=== PATIENT | male | born 1940 | race Caucasian/White ===

== ENCOUNTER 2016-11-05 00:11 | Emergency (ER) | payer MEDICARE ==
[2016-11-05 00:38] VITALS: BP 125/87
--- NOTE | 2016-11-05 01:59 | ED ---
Skin Complaint - HPI Summary HPI Summary: Patient presents with small avulsion to the skin over the right forearm from this afternoon. He bumped the area recently and the area started to bleed again. He is concerned that the wound would not stop bleeding and came to ed for evaluation. Patient is on daily aspirin. He denies other complaints and denies pain. - History of Current Complaint Chief Complaint: EDLacSutureRecheck Time Seen by Provider: 11/05/16 01:53 Stated Complaint: RT ARM LAC Hx Obtained From: Patient Onset/Duration: Started Hours Ago Skin Exposure Onset/Duration: Hours Ago Timing: Constant Onset Severity: Mild Current Severity: Mild Pain Intensity: 0 Pain Scale Used: 0-10 Numeric Skin Location: Arm Alleviating Symptom(s): Nothing Associated Signs & Symptoms: Negative Related History: Trauma - Allergy/Home Medications Allergies/Adverse Reactions: Allergies Allergy/AdvReac Type Severity Reaction Status Date / Time Bacitracin [From Neosporin] Allergy Rash Verified 11/21/15 11:51 Neomycin [From Neosporin] Allergy Rash Verified 11/21/15 11:51 Polymyxin B [From Neosporin] Allergy Rash Verified 11/21/15 11:51 Levofloxacin [From Levaquin] AdvReac Mild GI Upset Verified 11/21/15 11:51 Ibuprofen AdvReac excessive Verified 11/21/15 11:51 thirst yellow jackets Allergy Severe anaphylacti Uncoded 11/21/15 11:51 c PMH/Surg Hx/FS Hx/Imm Hx Previously Healthy: Yes Endocrine/Hematology History: Denies: Hx Systemic Lupus Erythematosus Comment Only: Hx Diabetes - MARKERS ELEVATED PER PATIENT Cardiovascular History: Reports: Hx Aneurysm - repaired triple A, Hx Hypercholesterolemia, Hx Hypertension - ON DAILY MEDS, Other Cardiovascular Problems/Disorders - hX OF AAA REPAIR, POPITEAL ARTERY REPAIR DR CHA Denies: Hx Congestive Heart Failure Respiratory History: Reports: Hx Asthma - ?, Hx Chronic Obstructive Pulmonary Disease (COPD), Hx Sleep Apnea, Other Respiratory Problems/Disorders - USES OXYGEN AT 4 L WITH CPAP AT NIGHT GI History: Reports: Hx Gastroesophageal Reflux Disease - AFFECTS VOCAL CORDS, Other GI Disorders - hx AAA History: Reports: Hx Benign Prostatic Hyperplasia, Hx Renal Disease - abnormal gfr, Other Problems/Disorders - enlarged prostate Denies: Hx Dialysis Musculoskeletal History: Reports: Hx Tendonitis - LEFT SHOULDER AND ARM Denies: Hx Rheumatoid Arthritis Sensory History: Reports: Hx Cataracts - BILATERAL, Hx Contacts or Glasses - GLASSES Denies: Hx Hearing Aid Opthamlomology History: Reports: Hx Cataracts - BILATERAL, Hx Contacts or Glasses - GLASSES Neurological History: Reports: Hx Headaches, Hx Migraine - HX OF MIGRAINES IN THE PAST (NONE SINCE USING CPAP Psychiatric History: Reports: Hx Depression - HX OF - Cancer History Hx Chemotherapy: No - Surgical History Surgery Procedure, Year, and Place: 2004 aaa. hernia repair- WITH MESH. 1987 polyps larynx benign. 2007 RIGHT TOTAL KNEE REPLACEMENT [facility] [place]. 2005 & 2013- bilat EYE CATARACT [facility] [place]. 2013 POPITEAL ARTERY AN. REPAIR [facility]. Hx Anesthesia Reactions: No Infectious Disease History: Denies: Traveled Outside the [place] in Last 30 Days - Social History Occupation: Retired Lives: With Family Alcohol Use: None Hx Substance Use: No Substance Use Type: Reports: None Smoking Status (MU): Former Smoker Type: Cigarettes Amount Used/How Often: 2 PPD X 20 YEARS Have You Smoked in the Last Year: No Review of Systems Constitutional: Negative Eyes: Negative Cardiovascular: Negative Respiratory: Negative Positive: no symptoms reported, see HPI Musculoskeletal: Negative Positive: Other - 1cm avulsion of skin to the right forearm Neurological: Negative Psychological: Normal All Other Systems Reviewed And Are Negative: Yes Physical Exam Triage Information Reviewed: Yes Vital Signs On Initial Exam: Initial Vitals Pulse Resp BP Pulse Ox 70 18 125/87 91 11/05/16 00:33 11/05/16 00:33 11/05/16 00:33 11/05/16 00:33 Vital Signs Reviewed: Yes Appearance: Positive: Well-Appearing, Well-Nourished Skin: Positive: Warm, Skin Color Reflects Adequate Perfusion, Other - 1cm avulsion to the right forearm Eyes: Positive: Normal, EOMI, MELINA Neck: Positive: Nontender, No Lymphadenopathy Respiratory/Lung Sounds: Positive: Clear to Auscultation, Breath Sounds Present Cardiovascular: Positive: Normal, RRR, Pulses are Symmetrical in both Upper and Lower Extremities Musculoskeletal: Positive: Normal, Strength/ROM Intact Neurological: Positive: Sensory/Motor Intact, Alert, Oriented to Person Place, Time, Speech Normal Psychiatric: Positive: Normal Diagnostics - Vital Signs Vital Signs Pulse Resp BP Pulse Ox 11/05/16 00:33 70 18 125/87 91 - Laboratory Lab Statement: Any lab studies that have been ordered have been reviewed, and results considered in the medical decision making process. Course/Dx - Course Course Of Treatment: Patient presents to ED with 1cm avulsion to the right forearm with concern for bleeding. Bleeding is well controlled. Compression dressing applied over gauze. Return precautions given. - Differential Diagnoses - Skin Complaint Differential Diagnoses: Other - avulsion, laceration, skin tear - Diagnoses Provider Diagnoses: Skin tear Discharge - Discharge Plan Condition: Stable Disposition: HOME Patient Education Materials: Blood Thinners (ED) Referrals: Germain Granda MD [Primary Care Provider] - Additional Instructions: Return to ED if wound is bleeding through the bandage
== END 2016-11-05 01:55 | disposition home or self-care (01) ==
LOC: ED 00:11
DX: S51.811A Laceration without foreign body of right forearm, initial encounter (principal); X58.XXXA Exposure to other specified factors, initial encounter; Y93.9 Activity, unspecified; Y92.9 Unspecified place or not applicable; Z87.891 Personal history of nicotine dependence
CPT/HCPCS: 99281

== ENCOUNTER 2018-10-13 16:13 | Observation (INO) | payer MEDICARE ==
[2018-10-13 16:43] LABS: ABS Basophils 0.1 10^3/ul (0-0.2); ABS Eosinophils 0.5 10^3/ul (0-0.6); ABS Monocytes 0.8 10^3/ul (0-0.8); ABS Neutrophils 7.8 10^3/ul (1.5-7.7); Eosinophil % 4.7 %; Hematocrit 45 % (42-52); Lymphocyte % 10.2 %; Mean Corpuscular HGB Conc 33 g/dL (31-36); Mean Corpuscular Hemoglobin 29 pg (27-31); Mean Corpuscular Volume 87 fL (80-94); Mean Platelet Volume 8.2 fL (7.4-10.4); Nucleated Red Blood Cells % 0.1; Platelet Count 198 10^3/uL (150-450); Red Blood Count 5.18 10^6 /uL (4.18-5.48); Red Cell Distribution Width 16 % (10-15); White Blood Count 10.3 10^3/uL (3.5-10.8)
--- NOTE | 2018-10-13 16:43 | ED ---
HPI Chest Pain - HPI Summary HPI Summary: Patient is a 78 y/o M w/ PMHx of AAA s/p repair x 2, most recent 09/16/[address] Patel, presents to [facility] with complaints of sudden onset of sharp pain in throat, just above his chest yesterday. He states that the Sx began as he was walking out of his counselor's office yesterday. Patient notes that Sx worsened with inspiration. Pain continued throughout yesterday and was present when he went to sleep last night. This morning, patient continued to have pain, now at his sternal notch. and lower anterior neck. Pain is described as a strong, dull ache. He took Gas-X with minimal relief. Patient later took a nap for 3-4 hours, when he awoke, pain was still present. He had called Dr. Charles's office this morning, nurse called back later in the day and advised him to come to [facility]. Fever and dizziness are denied but he notes some MARTEL, SOB, cough, and chronic LLE edema. Patient denies back pain, abdominal pain and states that his Sx do not feel like heartburn. Medications include omeprazole, ranitidine, metformin. PMHx of AAA that was repaired by Dr. Patel at [facility] on 09/16/18. On triage, pain is rated 1/10, nothing is noted to aggravate/alleviate Sx. Home medications and allergies are reviewed. - History of Current Complaint Chief Complaint: EDChestPainROMI Time Seen by Provider: 10/13/18 16:22 Hx Obtained From: Patient Onset/Duration: Started Days Ago - yesterday, Still Present Timing: Constant, Lasting Days - yesterday Initial Severity: Mild Current Severity: Mild Pain Intensity: 1 Pain Scale Used: 0-10 Numeric Chest Pain Location: Mid Sternal - today, Upper Sternal - yesterday Chest Pain Radiates: No Character: Dull/Aching Aggravating Factor(s): Deep Breaths Alleviating Factor(s): Nothing Associated Signs and Symptoms: Positive: Chest Pain, Headaches, Shortness of Breath, Swelling - LLE, Cough, Other: - chest pain, pain in throat. Negative: Dizziness, Fever, Back Pain, Abdominal Pain - Allergy/Home Medications Allergies/Adverse Reactions: Allergies Allergy/AdvReac Type Severity Reaction Status Date / Time bacitracin Allergy Rash Verified 06/29/18 15:28 [From Neosporin ([id number])] ibuprofen Allergy excessive Verified 06/29/18 15:28 thirst levofloxacin [From Levaquin] Allergy tendonitis Verified 06/29/18 15:28 neomycin Allergy Rash Verified 06/29/18 15:28 [From Neosporin ([id number])] polymyxin B Allergy Rash Verified 06/29/18 15:28 [From Neosporin ([id number])] yellow jacket Allergy Severe Anaphylatic Uncoded 06/29/18 15:28 Shock PMH/Surg Hx/FS Hx/Imm Hx Previously Healthy: No Endocrine/Hematology History: Reports: Hx Diabetes - TYPE 2 Denies: Hx Systemic Lupus Erythematosus Cardiovascular History: Reports: Hx Aneurysm - repaired AAA, repaired x 2 , Hx Hypercholesterolemia, Hx Hypertension - ON DAILY MEDS Denies: Hx Congestive Heart Failure, Hx Pacemaker/ICD Respiratory History: Reports: Hx Chronic Obstructive Pulmonary Disease (COPD), Hx Sleep Apnea, Other Respiratory Problems/Disorders - USES OXYGEN AT 4 L WITH CPAP AT NIGHT GI History: Reports: Hx Gastroesophageal Reflux Disease - AFFECTS VOCAL CORDS History: Reports: Hx Benign Prostatic Hyperplasia Denies: Hx Dialysis, Hx Renal Disease Musculoskeletal History: Reports: Hx Tendonitis - LEFT SHOULDER AND ARM Denies: Hx Rheumatoid Arthritis Sensory History: Reports: Hx Cataracts - BILATERAL, Hx Contacts or Glasses - GLASSES Denies: Hx Hearing Aid Opthamlomology History: Reports: Hx Cataracts - BILATERAL, Hx Contacts or Glasses - GLASSES Neurological History: Reports: Hx Headaches Psychiatric History: Reports: Hx Depression Denies: Hx Panic Disorder - Cancer History Hx Chemotherapy: No - Surgical History Surgery Procedure, Year, and Place: 2004 aaa. hernia repair- WITH MESH. 1987 polyps larynx benign. 2008 RIGHT [place] [facility] [place] 2006 & 2014- bil[place] CAT[place] [facility] [place] 2019 AAA repair, Dr. Patel, [facility]. 2014 POPITEAL ARTERY AN. REPAIR [facility]. Hx Anesthesia Reactions: No Infectious Disease History: No Infectious Disease History: Denies: Traveled Outside the [place] in Last 30 Days - Family History Known Family History: Positive: Cardiac Disease, Other - aortic aneurysm. - Social History Alcohol Use: None Hx Substance Use: No Substance Use Type: Reports: None Smoking Status (MU): Former Smoker Type: Cigarettes Amount Used/How Often: 2 PPD X 20 YEARS Have You Smoked in the Last Year: No Review of Systems Negative: Fever Positive: Chest Pain Positive: Shortness Of Breath, Cough Negative: Abdominal Pain Positive: no symptoms reported Musculoskeletal: Other - negative - back pain; positive - pain in throat Positive: Edema - LLE Skin: Negative Neurological: Other - negative - dizziness Positive: Headache Psychological: Normal All Other Systems Reviewed And Are Negative: Yes Physical Exam - Summary Physical Exam Summary: Appearance: Well-appearing, moderate pain distress, obese Skin: Warm, color reflects adequate perfusion, dry Head: Normal Head/Face inspection, atraumatic Eyes: Conjunctiva clear ENT: Normal inspection Neck: Supple, no nodes, no JVD, pain is not reproducible in neck, no pain in jaw Respiratory: decreased breath sounds, no respiratory distress Cardio: RRR, No murmur, pulses normal, brisk capillary refill Abdomen: Soft, nontender, no rebound, no guarding, no masses, non-distended Bowel sounds: Present Musculoskeletal: Strength Intact/ROM intact, no calf tenderness, left calf edema (not new, present for x2 months) Psychological: Normal Neuro: Alert, muscle tone normal, no focal deficit Triage Information Reviewed: Yes Vital Signs On Initial Exam: Initial Vitals Temp Pulse Resp BP Pulse Ox 98.7 F 83 20 123/73 91 10/13/18 16:14 10/13/18 16:14 10/13/18 16:14 10/13/18 16:14 10/13/18 16:14 Vital Signs Reviewed: Yes Diagnostics - Vital Signs Vital Signs Temp Pulse Resp BP Pulse Ox 10/13/18 16:14 98.7 F 83 20 123/73 91 - Laboratory Result Diagrams: 10/13/18 16:34 10/13/18 16:34 Lab Statement: Any lab studies that have been ordered have been reviewed, and results considered in the medical decision making process. - CT CHEST/ABD/PEL CTA CT Interpretation Completed By: Radiologist Summary of CT Findings: CT CHEST IMPRESSION: 1. There is a new filling defect in the left lower lobe pulmonary artery. suspicious for acute pulmonary embolism. There is a new small filling defect in. the right lower lobe pulmonary artery also suspicious for acute pulmonary. embolism. 2. Stable mild prominence of the main pulmonary artery consistent with. pulmonary arterial hypertension. 3. No specific signs of right ventricular strain. 4. No aortic dissection. 5. There is mild centrilobular emphysema. 6. There is bibasilar and bilateral dependent atelectatic change or scarring,. cannot exclude a component of pneumonitis in the left lower lobe. CT ABD/PEL IMPRESSION: 1. Stable postoperative changes of abdominal aortic aneurysm repair with. aortobiiliac stent which appears unchanged. 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 above the level of stent measuring 4.1 cm diameter without signs of aneurysm. rupture. No visible aortic dissection. 2. Stable cholelithiasis without pericholecystic inflammatory change. 3. Stable colonic diverticulosis without evidence for acute diverticulitis. THIS REPORT WAS REVIEWED BY DR. URBINA. - EKG 1624 Cardiac Rate: NL - rate of 72 BPM EKG Rhythm: Sinus Rhythm ST Segment: Non-Specific Ectopy: None EKG Comparison: No Significant Change - c/w 12/28/13 Summary of EKG Findings: An EKG at 1624 shows NSR at 72bpm with reveals nml AV CT, prolonged IV CT (174), nml QTc, and nml axis. No acute changes. ED MD has reviewed and interpreted this EKG. Re-Evaluation - Re-Evaluation First Eval Re-Evaluation Time: 19:58 Change: Improved Comment: Patient reports that he is pain free at this time. Previous aortogram done by Dr. Iris Patel showed enlarging aortic sac with type II and IB endoleak with sac enlargement from 5.2 cm to 6.9 cm over 1 year. Second Eval Re-Evaluation Time: 21:53 Change: Unchanged Comment: Lovenox, 100 mg, to be given. Patient is agreeable with admission. Chest Pain Course/Dx - Course Course Of Treatment: Patient is a 78 y/o M w/ PMHx of AAA presents to [facility] with complaints of sudden onset of sharp pain in throat, just above his chest yesterday. He states that Sx onset as he was walking out of his counselor's office yesterday. Patient notes that Sx worsened with inspiration. Pain continued throughout yesterday and was present when he went to sleep last night. This morning, patient continued to have pain, now at his sternal notch. Pain is described as a strong, dull ache. He took Gas-X with minimal relief. Patient later took a nap for 3-4 hours, when he awoke, pain was still present. He had called Dr. Charles's office this morning, nurse called back later in the day and advised him to come to [facility]. Fever and dizziness are denied but he notes some MARTEL, SOB, cough, and chronic LLE edema. Patient denies back pain, abdominal pain and states that his Sx do not feel like heartburn. Medications include omeprazole, ranitidine, metformin. PMHx of AAA that was repaired by Dr. Patel. On physical exam, well-appearing, moderate pain distress, obese, Soft, nontender, no rebound, no guarding, no masses, non-distended, left calf edema ( not new, present for x2 months). An EKG at 1624 shows NSR at 72bpm with reveals nml AV CT, prolonged IV CT (174), nml QTc, and nml axis. No acute changes. Labs showed RDW 16, absolute neuts 7.8, BUN 50, creatinine 1.46, BUN/ creatinine 34.2, glucose 142, first and second trop were negative, BNP 19. During ED course, patient received fluids. CTA of chest, abd/pelvis done to evaluate for possible thoracic aneurysm since pt has AAA. No finding of thoracic aortic aneurysm, or dissection, and AAA is showing no leak. However pt has bilateral PE's. See official report below. CT CHEST IMPRESSION: 1. There is a new filling defect in the left lower lobe pulmonary artery. suspicious for acute pulmonary embolism. There is a new small filling defect in. the right lower lobe pulmonary artery also suspicious for acute pulmonary. embolism. 2. Stable mild prominence of the main pulmonary artery consistent with. pulmonary arterial hypertension. 3. No specific signs of right ventricular strain. 4. No aortic dissection. 5. There is mild centrilobular emphysema. 6. There is bibasilar and bilateral dependent atelectatic change or scarring,. cannot exclude a component of pneumonitis in the left lower lobe. CT ABD/PEL IMPRESSION: 1. Stable postoperative changes of abdominal aortic aneurysm repair with. aortobiiliac stent which appears unchanged. 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 above the level of stent measuring 4.1 cm diameter without signs of aneurysm. rupture. No visible aortic dissection. 2. Stable cholelithiasis without pericholecystic inflammatory change. 3. Stable colonic diverticulosis without evidence for acute diverticulitis. 2050 - Patient's case was discussed with Dr. Menard, Dr. Menard to evaluate and consult. 2150 - Dr. Menard accepts the patient for admission. Patient is agreeable with admission, Lovenox 100 mg given. - Chest Pain Differential Diagnosis/HQI/PQRI: Acute VA, ACS, Angina, Aortic Aneurysm, CHF, Lower Respiratory Infection, Pulmonary Embolism - Diagnoses Provider Diagnoses: COPD (chronic obstructive pulmonary disease), Bilateral pulmonary embolism - Provider Notifications Discussed Care Of Patient With: Mar Menard Time Discussed With Above Provider: 20:51 Instructed by Provider To: Other - 2050 - Patient's case was discussed with Dr. Menard, Dr. Menard to evaluate and consult. 2150 - Dr. Menard accepts the patient for admission. - Critical Care Time Critical Care Time: 30-74 min - 30 minutes Discharge - Sign-Out/Discharge Documenting (check all that apply): Patient Departure - admit All imaging exams completed and their final reports reviewed: Yes Patient Received Moderate/Deep Sedation with Procedure: No - Discharge Plan Condition: Stable Disposition: ADMITTED TO [facility] - Billing Disposition and Condition Condition: STABLE Disposition: Admitted to [facility] - Attestation Statements Document Initiated by Lorna: Yes Documenting Scribe: KEITH LANDRUM Provider For Whom Lorna is Documenting (Include Credential): MADDI URBINA MD Scribe Attestation: KEITH Rojo, scribed for MADDI URBINA MD on 10/15 at 0517. Scribe Documentation Reviewed: Yes Provider Attestation: The documentation as recorded by the lorna, KEITH LANDRUM accurately reflects the service I personally performed and the decisions made by , MADDI URBINA MD Status of Scribe Document: Viewed
[2018-10-13 16:59] LABS: Albumin 3.9 g/dL (3.2-5.2); Albumin/Globulin Ratio 1.2 (1-3); BUN/Creatinine Ratio 34.2 (8-20); EGFR African American 56.8 (>60); EGFR Non-African American 46.9 (>60); Globulin 3.2 g/dL (2-4); Potassium 4.5 mmol/L (3.5-5.0); Total Bilirubin 0.5 mg/dL (0.2-1.0); Total Protein 7.1 g/dL (6.4-8.9)
[2018-10-13] MEDS ORDERED: Iodixanol* (CONTRAST) 320 MG/ML 100 ML SDV IV ONE (17:54)
[2018-10-13] MEDS ORDERED: NS 0.9% 1000 ML** 1,000 ML IV.FLUID IV ONE (18:45)
[2018-10-13] MEDS ORDERED: Enoxaparin(*) 100 MG/ML SYR SUBCUT ONE (21:53)
[2018-10-13] MEDS ORDERED: Colchicine* 0.6 MG TAB PO PRN (21:55)
[2018-10-13] MEDS ORDERED: hydrOXYzine HCL TAB* 10 MG PO PRN (21:55)
[2018-10-13] MEDS ORDERED: Acetaminophen TAB* 325 MG PO PRN (21:58)
[2018-10-13] MEDS ORDERED: Ondansetron INJ* 2 MG/ML VIAL IV PRN (21:59)
[2018-10-13] MEDS ORDERED: Albuterol HFA INHALER* 8 gm MDI INH PRN (22:05)
--- NOTE | 2018-10-14 02:16 | HP ---
HISTORY AND PHYSICAL: DATE OF ADMISSION: 10/13/18 CHIEF COMPLAINT: Chest pain. PRIMARY CARE PROVIDER: Shae Charles MD. SUPERVISOR CUTTING AND BONING: The patient's son, Antony Stephenson. CODE STATUS: Full. SOURCE OF INFORMATION: HPI is obtained from the patient who is a fair historian and review of charts. 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 The patient reports he was in his usual state of health, but yesterday morning had acute onset of pleuritic chest pain, worse with a deep breath. He ignored it initially and then today he noticed once again that he had pleuritic chest pain at sternal notch, worse on inspiration, described as a strong dull ache. He thought maybe it was heartburn. He took Gas-X and then he finally called his primary care provider who told him to come to the emergency room. EMERGENCY ROOM COURSE: Temperature 98.7, heart rate 83, respiratory rate 20, satting 91% on 2 L, blood pressure 122/73. Labs were done, which were unremarkable save for his creatinine of 1.4. An EKG was done, which showed sinus rhythm with nonspecific intraventricular conduction delay that is unchanged from prior. A CTA was done, which showed a new filling defect in left pulmonary artery as well as a small filling defect in the right lower lobe pulmonary artery suspicious for acute pulmonary embolism. 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 The hospitalist team was asked to risk stratify this patient to determine if admission is needed. He is not on standing oxygen at home and has required 2 to 3 L to maintain sats greater than 90%. Thus, decision to hospitalize the patient under observation was made. PAST MEDICAL HISTORY: 1. Hypertension. 2. Hyperlipidemia. 3. COPD. 4. FRANCISCO, on CPAP. 5. CKD, stage II to III. 6. Depression. 7. AAA, status post endo stent repair with revision within the last 3 weeks. PAST SURGICAL HISTORY: 1. Right cataract. 2. AAA, endo stent. 3. Right TKA. FAMILY HISTORY: Reviewed and noncontributory to current complaint. SOCIAL HISTORY: He is a former employee at [employer]. He lives alone with sons nearby. Tobacco: Has a 40-pack year history, quit greater than 15 years ago. No significant alcohol. Illicits: None. REVIEW OF SYSTEMS: Constitutional: Negative for fevers or chills or malaise. HEENT: Negative for vision changes, sore throat, headache. Cardiovascular: Negative for palpitations or orthopnea and is positive for sternal notch chest pain. Respiratory: Positive for pleuritic chest pain. Negative for shortness of breath or cough. GI: Negative for nausea, vomiting, diarrhea or abdominal pain. : Negative for dysuria or hematuria. Musculoskeletal: Negative for myalgias, arthralgias, or weakness. Skin: Negative for rashes or lesions. Neurologic: Negative for focal weakness or numbness. Psychiatric: Negative for depression and anxiety. Endocrine: Negative for polyuria or polydipsia. Heme: Negative for easy bruising or bleeding. PHYSICAL EXAMINATION GENERAL: This is a very pleasant, well-appearing, obese gentleman in no acute distress. VITAL SIGNS: At the time of physical exam, blood pressure 125/80, temperature 97.2, pulse 64, oxygen saturation 90% on 3 L nasal cannula. HEENT: Pupils are equal and reactive. Sclerae are anicteric. Mucous membranes and oral cavity are moist. NECK: Supple with no supraclavicular or cervical lymphadenopathy. RESPIRATORY: Lungs are clear to auscultation bilaterally. CARDIAC: Regular rate and rhythm with no murmurs, rubs, or gallops. ABDOMEN: Belly is soft, nontender, nondistended, obese with normoactive bowel sounds. MUSCULOSKELETAL: She moves all 4 limbs spontaneously without pain. EXTREMITIES: Bilateral DP symmetrical pulses in the lower extremities with no edema. NEUROLOGIC: Cranial nerves II through XII are intact. No focal neurologic deficits. She is A and O x4. DIAGNOSTIC STUDIES/LAB DATA: White blood cell count 10.3, hemoglobin 15, hematocrit 45, platelets 198. INR 1. Sodium 138, potassium 4.5, chloride 101, carbon dioxide 27, BUN 50, creatinine 1.46, glucose 142. Troponin 0. BNP 19. EKG with normal sinus rhythm with intraventricular conduction delay, consistent with left fascicular posterior block, unchanged from prior. No signs of active ischemia. CTA of chest, abdomen, and pelvis showed new filling defects in left pulmonary artery and right lower lobe pulmonary artery consistent with new PE as well as stable postsurgical changes for AAA repair with no new findings. EKG, imaging, and labs reviewed by myself. ASSESSMENT AND PLAN: This is a 78-year-old male with past medical history of hypertension; chronic obstructive pulmonary disease; obstructive sleep apnea, on CPAP, nightly oxygen, but not on standing oxygen; chronic kidney disease stage II to III; depression; and history of abdominal aortic aneurysm, status post endo stent with recent revision done by Dr. Winston; who is presenting with 2 days of acute pleuritic chest pain, found to have pulmonary embolism. His PESI score is 96, which puts him at class 3 intermediate risk. Because the patient has new oxygen requirement during the day, we will observe the patient to determine his oxygen needs going home as well as start anticoagulation and monitor. 1. Pulmonary embolus. PESI is intermediate. He was given Lovenox therapeutic dose in the emergency room. We will monitor on tele and identify for acute oxygen needs and return of chest pain. 2. Hypertension. We will continue home metoprolol and torsemide. 3. Benign prostatic hyperplasia. Continue home tamsulosin. 4. Obstructive sleep apnea. The patient has his home machine. 5. Abdominal aortic aneurysm, status post recent endo stent revision. We will update Dr. Winston on the status of his hospitalization, most likely his pulmonary embolism is provoked from his recent surgical revision. 6. Depression. We will continue his home meds. 7. Chronic obstructive pulmonary disease. He is on p.r.n. albuterol with no control inhalers, only rescue. Continue p.r.n. albuterol. We will need to titrate his oxygen needs. 8. Gout. Continue colchicine. 9. DVT prophylaxis. The patient is on therapeutic Lovenox. Ttransition to DOAC if the patient is amenable. 10. FEN: Heart healthy. 11. Code status is full. 12. Disposition: The patient is stable for observation and admission to the medical service to determine ultimate oxygen needs as well as monitor status post therapeutic anticoagulation dosing x1. Anticipate early discharge and consultation as such. TIME SPENT: Thirty five minutes were spent completing this admission with over half of that spent directly at the bedside of the patient providing direct patient care. Plan of care was reviewed with the patient and son. They have no further questions. [id number]/[facility] #: [id number] FLO
[2018-10-14] MEDS ORDERED: Torsemide TAB 10 MG PO SCH (09:00)
[2018-10-14] MEDS ORDERED: Tamsulosin CAP* 0.4 MG PO SCH (09:00)
[2018-10-14] MEDS ORDERED: Metoprolol Tartrate TAB* 50 mg PO SCH (09:00)
[2018-10-14] MEDS ORDERED: Metoprolol Succinate XL TAB* 25 MG PO SCH (09:00)
[2018-10-14] MEDS ORDERED: DULoxetine DR CAP* 60 MG CAP.DR PO SCH (09:00)
[2018-10-14] MEDS ORDERED: Enoxaparin(*) 150 MG/ML 1 ML SYRINGE SUBCUT ONE (12:00)
[2018-10-14 16:14] VITALS: BP 127/70
--- NOTE | 2018-10-14 21:42 | DS ---
CC: Dr. Charles.* DISCHARGE SUMMARY: DATE OF ADMISSION: 10/13/18 DATE OF DISCHARGE: 10/14/18 ATTENDING PHYSICIAN: Dr. Jammie Lewis * (dictated by NAHID Hays). PRIMARY CARE PROVIDER: Dr. Charles. PRIMARY DIAGNOSIS: Pulmonary embolism. SECONDARY DIAGNOSES: 1. Hypertension. 2. Hyperlipidemia. 3. Chronic obstructive pulmonary disease, requiring 6 L on exertion. 4. Obstructive sleep apnea, on CPAP. 5. Chronic kidney disease. 6. Depression. 7. Abdominal aortic aneurysm repair. 8. Iliac extension revision 3 weeks ago. STUDIES IN THE HOSPITAL: 1. Chest/abdomen/pelvis CT angiogram. Impression: There is a new filling defect in the left lower lobe pulmonary artery suspicious for acute coronary embolism. There is a new small filling defect in the right lower lobe pulmonary artery also suspicious for acute pulmonary embolism. 2. Stable mild prominence of the main pulmonary artery consistent with pulmonary arterial hypertension. 3. No specific signs of right ventricular strain. 4. No aortic dissection. 5. There is mild central lobular emphysema. 6. There is bibasilar and bilateral dependent atelectatic changes, scarring, cannot exclude a component of pneumonitis in the left lower lobe. 7. Stable mural thrombus in upper abdominal aorta with stable aneurysmal dilation of the upper abdominal aorta above the level of stent measuring 4.1 cm diameter without signs of aneurysm rupture. No visible aortic dissection. This is on 10/13/18, the date of the study. PERTINENT LABORATORY DATA: INR 1.0. DISCHARGE MEDICATIONS: 1. Eliquis 10 mg p.o. b.i.d. x7 days and then 5 mg p.o. b.i.d. Continued home medications: 1. Acetaminophen 1000 mg p.o. t.i.d. p.r.n. pain 2. Albuterol inhaler 1 to 2 puffs inhaled q.4 hours p.r.n. shortness of breath/ wheezing. 3. Colchicine 0.6 mg p.o. b.i.d. day 1, then daily x2 days p.r.n. 4. Duloxetine 60 mg p.o. daily. 5. Dutasteride 0.5 mg p.o. daily. 6. Epinephrine 0.3 mg IM once p.r.n. anaphylaxis. 7. Loratadine 10 mg p.o. daily. 8. Metoprolol tartrate 25 mg p.o. daily. 9. Singulair 10 mg p.o. daily. 10. Multivitamin 1 tab p.o. daily. 11. Mupirocin 2% ointment 1 application topically b.i.d. 12. Omeprazole 40 mg p.o. daily. 13. Torsemide 3 mg p.o. daily. 14. Hydroxyzine 10 mg p.o. 4 times a day p.r.n. anxiety. HISTORY OF PRESENT ILLNESS/HOSPITAL COURSE: Joseph Stephenson is a 78-year- old white male with a past medical history significant for hypertension; COPD, requiring 6 L oxygen on exertion; obstructive sleep apnea, on CPAP, and history of repair and recent iliac extension 3 weeks ago. He reports to the emergency department due to chest and neck pain. Please see admitting history and physical dictated by Dr. Mar Menard for further information. During his hospital stay, he was not tachycardiac. He required his normal oxygen requirements with good oxygen saturations on room at rest and then requiring 6 L on exertion. The patient admitted he was not using oxygen on exertion. Otherwise, the patient asymptomatic with no chest pain, difficulty breathing or neck pain, abdominal pain, fever, chills which was previously described. He was given Lovenox for treatment of his PE and then switched to Eliquis after discussion and ultimately discharged on his medications. On the date of discharge, the patient has no complaints and is eager to go home. REVIEW OF SYSTEMS: A 12-point review of systems was completed and all pertinent positives and negatives are above in the HPI. All other systems are negative. PHYSICAL EXAMINATION: Pleasant elderly white morbidly obese male, sitting upright over the side of hospital bed, appearing in no acute distress. Head: Normocephalic, atraumatic. Eyes: PERRL. Sclerae anicteric. ENT: Mucous membranes moist. Neck: Supple without JVD. Cardio: Regular rate and rhythm without murmurs, rubs, or gallops. Lungs: Clear to auscultation throughout. Abdomen: Abdomen is soft, nontender, nondistended. Normoactive bowel sounds x4 quadrants. Extremities: No clubbing, cyanosis or edema. Neuro: The patient is alert and oriented x3. No focal deficits. Able to move all extremities. Psych: The patient is pleasant and cooperative. Skin: Skin is warm, dry and intact. DISCHARGE PLAN: Diet: The patient may return to normal, regular, unrestricted diet. Activity: The patient may return to normal activity on 6 L oxygen with exertion. The patient was advised to return to emergency department if he experiences black stools or bright red blood in the toilet, difficulty breathing, chest pain. The importance of using his oxygen with exertion was emphasized. It is likely that the cause of this PE was provoked on recent surgery within the last month. I will be discharging him on Eliquis and likely he will need this for 3 months as this is believed to be provoked PE; however, it is up to the followup care of his primary care provider. The patient advised to follow up with the primary care provider in 7 to 10 days regarding this new diagnosis and hospitalization. The patient also has a followup appointment with his vascular surgeon, Dr. Winston, in November and he will be following up with her at that time. His case was discussed with Dr. Winston and she agrees continuing with anticoagulation at this time is necessary and has no pause. The patient does have sufficient oxygen equipment for his 6 Ls oxygen requirement. Otherwise, he is to continue taking all his home home medications as previously described. CONDITION ON DISCHARGE: Stable. DISPOSITION: Home. TIME SPENT: Approximately 45 minutes was spent on this discharge. Approximately half this time was spent at bedside. NAHID HAYS [id number]/[facility] #: [id number] MTDYolis
[2018-10-14] MEDS ORDERED: Apixaban* 5 MG TAB PO SCH (23:00)
== END 2018-10-14 17:15 | disposition home or self-care (01) ==
LOC: ED 16:13 → MED 21:53
PROVIDERS: ADMIT Internal Medicine; ATTEND Internal Medicine
DX: I26.99 Other pulmonary embolism without acute cor pulmonale (principal); I12.9 Hypertensive chronic kidney disease with stage 1 through stage 4 chronic kidney disease, or unspecified chronic kidney disease; E11.22 Type 2 diabetes mellitus with diabetic chronic kidney disease; N18.9 Chronic kidney disease, unspecified; R07.9 Chest pain, unspecified; R51 Headache; R06.02 Shortness of breath; R60.9 Edema, unspecified; E78.5 Hyperlipidemia, unspecified; J44.9 Chronic obstructive pulmonary disease, unspecified; G47.33 Obstructive sleep apnea (adult) (pediatric); F32.9 Major depressive disorder, single episode, unspecified; Z79.01 Long term (current) use of anticoagulants; Z86.79 Personal history of other diseases of the circulatory system; M10.9 Gout, unspecified; N40.0 Benign prostatic hyperplasia without lower urinary tract symptoms; Z87.891 Personal history of nicotine dependence
CPT/HCPCS: 36415; 71275; 74174; 80053; 83880; 84484; 85025; 85610; 93005; 96372; 99284; A9270-GY; G0378; J1650; Q9967

== ENCOUNTER 2018-11-26 20:09 | Emergency (ER) | payer MEDICARE ==
[2018-11-26] MEDS ORDERED: diPHENhydraMINE IV* 50 MG/ML 1 ml VIAL (BENADRYL) IV ONE (20:22)
[2018-11-26] MEDS ORDERED: EPINEPHRINE 1 MG/ML 1 ML VIAL IM ONE (20:22)
[2018-11-26] MEDS ORDERED: NS 0.9% 1000 ML** 1,000 ML IV ONE (20:23)
[2018-11-26] MEDS ORDERED: predniSONE TAB* 20 MG PO ONE (20:23)
--- NOTE | 2018-11-26 20:25 | ED ---
Allergic Reaction/Systemic - HPI Summary HPI Summary: This pt is a 78 y/o male presenting to [facility] c/o possible allergic reaction s/p bee sting today at 19:30. 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 He states today a yellow jacket bee stung him around his right eyebrow. He c/o SOB, facial burning and swelling. Pt had an epi pen but did not use it. Per nurse pt is also c/o left sided chest pain. The first time he had an allergic reaction was when he was 29 years old. PMHx includes DM for which he takes metformin, HTN, COPD. - History of Current Complaint Chief Complaint: EDAllergicReaction Time Seen by Provider: 11/26/18 20:21 Hx Obtained From: Patient Onset/Duration: Started hours ago, Still Present Timing: Lasting Hours Severity Currently: Moderate Pain Intensity: 4 Pain Scale Used: 0-10 Numeric Location: Diffuse - facial Character: Swelling, Pain Aggravating Factor(s): Nothing Alleviating Factor(s): Nothing Associated Signs And Symptoms: Positive: Difficulty Breathing - Allergies/Home Medications Allergies/Adverse Reactions: Allergies Allergy/AdvReac Type Severity Reaction Status Date / Time bacitracin Allergy Rash Verified 11/26/18 20:17 [From Neosporin ([id number])] ibuprofen Allergy excessive Verified 11/26/18 20:17 thirst levofloxacin [From Levaquin] Allergy tendonitis Verified 11/26/18 20:17 neomycin Allergy Rash Verified 11/26/18 20:17 [From Neosporin ([id number])] polymyxin B Allergy Rash Verified 11/26/18 20:17 [From Neosporin ([id number])] yellow jacket Allergy Severe Anaphylatic Uncoded 11/26/18 20:17 Shock Home Medications: Home Medications Apixaban* [Eliquis*] 10 mg PO DAILY 11/26/18 [History Confirmed 11/26/18] Icosapent Ethyl [Vascepa] 2 cap PO BID 11/26/18 [History Confirmed 11/26/18] Metformin HCl 500 mg PO BID 11/26/18 [History Confirmed 11/26/18] Ranitidine TAB (NF) [Zantac TAB (NF)] 300 mg PO DAILY 11/26/18 [History Confirmed 11/26/18] PMH/Surg Hx/FS Hx/Imm Hx Endocrine/Hematology History: Reports: Hx Diabetes - TYPE 2 Denies: Hx Systemic Lupus Erythematosus Cardiovascular History: Reports: Hx Aneurysm - repaired AAA, repaired x 2 , Hx Hypercholesterolemia, Hx Hypertension - ON DAILY MEDS, Other Cardiovascular Problems/Disorders Denies: Hx Congestive Heart Failure, Hx Pacemaker/ICD Respiratory History: Reports: Hx Asthma - ?, Hx Chronic Obstructive Pulmonary Disease (COPD), Hx Sleep Apnea, Other Respiratory Problems/Disorders - USES OXYGEN AT 4 L WITH CPAP AT NIGHT GI History: Reports: Hx Gastroesophageal Reflux Disease - AFFECTS VOCAL CORDS, Other GI Disorders - hx AAA History: Reports: Hx Benign Prostatic Hyperplasia, Other Problems/ Disorders - enlarged prostate Denies: Hx Dialysis, Hx Renal Disease Musculoskeletal History: Reports: Hx Tendonitis - LEFT SHOULDER AND ARM Denies: Hx Rheumatoid Arthritis Sensory History: Reports: Hx Cataracts - BILATERAL, Hx Contacts or Glasses - GLASSES Denies: Hx Hearing Aid Opthamlomology History: Reports: Hx Cataracts - BILATERAL, Hx Contacts or Glasses - GLASSES Neurological History: Reports: Hx Headaches, Hx Migraine - HX OF MIGRAINES IN THE PAST (NONE SINCE USING CPAP Psychiatric History: Reports: Hx Depression Denies: Hx Panic Disorder - Cancer History Hx Chemotherapy: No - Surgical History Surgery Procedure, Year, and Place: 2004 aaa. hernia repair- WITH MESH. 1987 polyps larynx benign. 2007 RIGHT TOTAL KNEE REPLACEMENT [facility]. 2006 & 2014- bilat EYE CATARACT [facility]. 2019 AAA repair, Dr. Patel, [facility]. 2014 POPITEAL ARTERY AN. REPAIR [facility]. Hx Anesthesia Reactions: No Infectious Disease History: No Infectious Disease History: Denies: Traveled Outside the [place] in Last 30 Days - Family History Known Family History: Positive: Cardiac Disease, Other - aortic aneurysm. - Social History Alcohol Use: None Hx Substance Use: No Substance Use Type: Reports: None Smoking Status (MU): Former Smoker Type: Cigarettes Amount Used/How Often: 2 PPD X 20 YEARS Have You Smoked in the Last Year: No Review of Systems Negative: Fever ENT: Other - POSITIVE: facial swelling and burning Positive: Chest Pain Positive: Shortness Of Breath All Other Systems Reviewed And Are Negative: Yes Physical Exam - Summary Physical Exam Summary: Appearance: Well-appearing, Well-nourished, lying in bed comfortably Skin: Warm, dry, no obvious rash Eyes: sclera anicteric, no conjunctival pallor. Swelling about the right eye. ENT: mucous membranes moist, pharynx appears normal Neck: Supple, nontender Respiratory: Clear to auscultation, no signs of respiratory distress Cardiovascular: Normal S1, S2. No murmurs. Normal distal pulses in tibial and radial bilaterally. Abdomen: Soft, nontender, normal active bowel sounds present Musculoskeletal: Normal, Strength/ROM Intact Neurological: A&Ox3, awake and alert, mentation is normal, speech is fluent and appropriate Psychiatric: affect is normal, does not appear anxious or depressed Triage Information Reviewed: Yes Vital Signs On Initial Exam: Initial Vitals Temp Pulse Resp BP Pulse Ox 97.8 F 82 16 155/88 90 11/26/18 20:10 11/26/18 20:10 11/26/18 20:10 11/26/18 20:10 11/26/18 20:10 Vital Signs Reviewed: Yes Diagnostics - Vital Signs Vital Signs Temp Pulse Resp BP Pulse Ox 11/26/18 20:10 97.8 F 82 16 155/88 90 - Laboratory Lab Statement: Any lab studies that have been ordered have been reviewed, and results considered in the medical decision making process. - EKG 20:49 Cardiac Rate: NL - at 66 bpm EKG Rhythm: Sinus Rhythm Summary of EKG Findings: Nonspecific intraventricular conduction delay. Allergic Reaction Course/Dx - Course Assessment/Plan: Pt is a 78 y/o male presenting to [facility] c/o possible allergic reaction s/p bee sting near right eyebrow today at 19:30. 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 In the ED course the pt was given IV fluids, Benadryl, prednisone, I held off on epinephrine as symptoms were not severe and he apparently has some type of cardiac history. Pt is feeling better after a period of observation and medications. Pt was discharged home with follow up from his PCP. Return precautions were given. - Diagnoses Provider Diagnoses: Wasp sting Discharge - Sign-Out/Discharge Documenting (check all that apply): Patient Departure - Disca Patient Received Moderate/Deep Sedation with Procedure: No - Discharge Plan Condition: Good Disposition: HOME Patient Education Materials: Insect Bite or Sting (ED) Referrals: Shae Charles MD [Primary Care Provider] - If Needed - Billing Disposition and Condition Condition: GOOD Disposition: Home - Attestation Statements Document Initiated by Scribe: Yes Documenting Scribe: Nati Whitmore Provider For Whom Scribe is Documenting (Include Credential): Sin Gonzalez MD Scribe Attestation: I, Nati Whitomre, scribed for Sin Gonzalez MD on 11/27/18 at 1939. Scribe Documentation Reviewed: Yes Provider Attestation: The documentation as recorded by the Nati rothman accurately reflects the service I personally performed and the decisions made by me, Sin Gonzalez MD Status of Scribe Document: Viewed
[2018-11-26 23:01] VITALS: BP 118/75
== END 2018-11-26 22:59 | disposition home or self-care (01) ==
LOC: ED 20:09
DX: T63.461A Toxic effect of venom of wasps, accidental (unintentional), initial encounter (principal); Y92.9 Unspecified place or not applicable; E11.9 Type 2 diabetes mellitus without complications; I10 Essential (primary) hypertension; J44.9 Chronic obstructive pulmonary disease, unspecified; Z79.84 Long term (current) use of oral hypoglycemic drugs; Z88.1 Allergy status to other antibiotic agents; Z88.8 Allergy status to other drugs, medicaments and biological substances; Z79.01 Long term (current) use of anticoagulants; Z79.899 Other long term (current) drug therapy; E78.00 Pure hypercholesterolemia, unspecified; Z87.891 Personal history of nicotine dependence
CPT/HCPCS: 93005; 96361; 96372; 96374; 99283; J1200; J7512

== ENCOUNTER 2019-04-15 19:41 | Emergency (ER) | payer MEDICARE ==
--- OUTSIDE RECORDS SUMMARY | 2019-04-15 20:06 | XMS REPORT | Continuity of Care Document ---
:1940 External Reference #:[id number] Author Name Triston Fontenot MD Address [address] [place] [address] Care Team Providers Name Role Phone [facility]-Oxygen Supp[facility] Care Team Information Connection Worker [phone] Sung HAN, Amilcar - Acute Care Care Team Information Connection Worker [phone] Ashley Hammond MD - Pulmonary Disease Care Team Information Connection Worker Shae Charles MD - Family Medicine Care Team Information Connection Worker [phone] Problems Active Problems Provider Date Difficulty speaking Triston Fontenot MD Onset: 02/21/2011 Headache Triston Fontenot MD Onset: 02/21/2011 Acute maxillary sinusitis Corinne Sy [facility]ENCH BINDER Onset: 02/21/2011 Chronic pharyngitis Corinne Sy [facility]ER Onset: 02/21/2011 Allergic rhinitis due to pollen Corinne Sy [employer] [employer]INDER Onset: 02/21/2011 Gastroesophageal reflux disease Claude Loyd M.D. 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 Onset: 08/01/2014 asthmaticus Social History Type Date Description Comments Sex Unknown Tobacco Use Start: Unknown End: Unknown Former cigarette smoker, smoked 2 packs a day for 25 years,quit 1994 Tobacco Use Start: Unknown has never smoked cigars Tobacco Use Start: Unknown has never smoked a pipe Smokeless Tobacco has never used smokeless tobacco ETOH Use does not drink alcohol Tobacco Use Start: Unknown End: Unknown Patient is a former smoker Smoking Status Reviewed: 03/30/19 Patient is a former smoker Allergies, Adverse Reactions, Alerts Active Allergies Reaction Severity Comments Date Ibuprofen 08/08/2004 Levaquin muscle aches 07/12/2009 Medications Active Medications SIG Qnty Indications Ordering Provider Date Finasteride Josh PEARCE, Saturnino 5mg Tablets Ventolin HFA Inhale Two Puffs Unknown By Mouth Every 4 108(90Base) mcg/Act Hours as Needed Aerosol For Wheezing Fluticasone Stryker One Stryker In Unknown Propionate Each Nostril Every 50mcg/Act Day as Needed Suspension Colchicine Melvin PEARCE, Shae 0.6mg Tablets Epinephrine Use as Directed Unknown 0.3mg/0.3ML Solution Auto-Inject Omeprazole Take One Capsule Unknown 40mg By Mouth Every Day Capsules DR Acetic Acid Instill 5 Drops Unknown 2% Solution Into Right Ear Three Times A Day For 1 Weeks Metformin HCL Take One Tablet By Unknown 500mg Mouth Twice A Day Tablets With Food Montelukast Sodium Take One Tablet By Unknown 10mg Mouth Every Day Tablets Eliquis Take One Tablet By Unknown 5mg Tablets Mouth Twice A Day Ranitidine HCL Take One Capsule Unknown 300mg By Mouth Every Day Capsules After Dinner Torsemide Take One Tablet By Unknown 20mg Tablets Mouth Every Day Ranitidine HCL Take One Tablet By Unknown 300mg Mouth Every Day Tablets After Dinner Metoprolol Succinate Take One Tablet By Unknown ER Mouth Every Day 25mg Tablets ER 24HR Duloxetine HCL Take One Capsule Unknown 60mg By Mouth Every Day Caps DR Shruthi Bravo Take Two Capsules Unknown 1gm Capsules By Mouth Twice A Day Dutasteride Take One Capsule Unknown 0.5mg By Mouth Every Day Capsules as Directed Immunizations Description No Information Available Vital Signs Date Vital Result Comment 12/01/2014 11:39am BP Systolic 132 mmHg BP Diastolic 73 mmHg Heart Rate 54 /min Respiratory Rate 16 /min Weight 324.00 lb Weight 146.966 kg Height 72 inches 6'0" Height in cm's 182.9 cm BMI (Body Mass Index) 43.9 kg/m2 07/06/2014 4:31pm BP Systolic 147 mmHg BP Diastolic 90 mmHg Heart Rate 73 /min Respiratory Rate 16 /min Weight 324.00 lb Weight 146.966 kg Height 72 inches 6'0" Height in cm's 182.9 cm BMI (Body Mass Index) 43.9 kg/m2 Results Description No Information Available Procedures Date Code Description Status 03/30/2019 62805 Fiberoptic Laryngoscopy Completed 03/24/2019 56881 Fiberoptic Laryngoscopy Completed Medical Devices Description No Information Available Encounters Type Date Location Provider Dx Diagnosis Office Visit 03/24/2019 Heydi Sharma Elvia Rosales, H92.01 Otalgia, right ear 10:30a 04/28/07 [facility] J37.0 Chronic laryngitis 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
--- OUTSIDE RECORDS SUMMARY | 2019-04-15 20:06 | XMS REPORT | Continuity of Care Document ---
:1940 External Reference #:[id number] Author Name Thania Nation MD (transmitted by agent of provider Rosemary Dobson) Address [address] [place] [address] Care Team Providers Name Role Phone Keegan Lujan MD - Psychiatry Care Team Information [employer] Crane Operator Ruddy Ames M.D. - Rheumatology Care Team Information [employer] L[employer] Crane Operator [phone] Luis Daniel Jacob MD - Upholstery Department Supervisor Care Team Information [employer] Crane Operator [phone] Iris Patel MD - Vascular Surgery Care Team Information [employer] Crane Operator [phone] Vika Pierce FNP-Cde - Family Care Team Information [employer] Crane Operator Ashley Hammond MD - Pulmonary Care Team Information [employer] Crane Operator Disease Saturnino Moreno MD - Urology Care Team Information [employer] L[employer]otive Crane Operator [phone] Shae Charles M.D. - Family Medicine Care Team Information [employer]ane Operator Problems Active Problems Provider Date Gout Germain Granda M.D.,FACP Onset: 05/18/2014 Note: suspected Secondary hypothyroidism Germain Granda M.D.,FACP Onset: 05/20/2017 Note: lithium? Pure hyperglyceridemia Germain Granda M.D.,FACP Onset: 03/26/2007 Right bundle branch block Germain Granda M.D.,FACP Onset: 03/26/2007 Benign essential hypertension Germain Granda M.D.,FACP Onset: 09/07/2007 Abdominal aortic aneurysm without Germain Granda M.D.,FACP Onset: 2008 rupture Chronic obstructive lung disease Germain Granda M.D.,FACP Onset: 2008 Raised prostate specific antigen Germain Granda M.D.,FACP Onset: 2010 Type 2 diabetes mellitus Germain Granda M.D.,FACP Onset: 11/14/2011 Adjustment disorder with depressed Germain Granda M.D.,FACP Onset: 2012 mood Morbid obesity Germain Granda M.D.,FACP Onset: 07/16/2013 Disorder of shoulder Ruddymikey Ames M.D. Onset: 04/04/2014 Multiple joint pain Candelario Fregoso M.D. Onset: 06/27/2014 Degenerative joint disease of hand Candelario Fregoso M.D. Onset: 06/27/2014 Obstructive sleep apnea syndrome Ashley Hammond MD Onset: 07/15/2014 Disorder of the larynx Ashley Hammond MD Onset: 07/15/2014 Aneurysm of popliteal artery Germain Granda M.D.,FACP Onset: 09/29/2014 Note: right repaired History of repair of aneurysm of Germain Granda M.D.,FACP Onset: 2014 abdominal aorta using endovascular stent graft Chronic kidney disease stage 2 Germain Granda M.D.,FACP Onset: 07/17/2018 Multiple congenital cysts of kidney Pat Beauchamp MD Onset: 10/19/2018 Social History Type Date Description Comments Sex Unknown Cigarette Use Quit 20 Years Ago ETOH Use 07/17/2018 Denies alcohol use ETOH Use 09/15/2014 Has consumed alcohol in excess in 20s-30s the past Recreational Drug Use Denies Drug Use Tobacco Use Start: Unknown End: Patient is a former Unknown smoker Smoking Status Reviewed: 03/12/19 Patient is a former smoker Exercise Type/Frequency Exercises regularly Allergies, Adverse Reactions, Alerts Active Allergies Reaction Severity Comments Date Ibuprofen 03/26/2007 Levaquin enthesitis 07/04/2009 Bee Sting erythema & swelling Moderate 11/30/2014 Neosporin 11/16/2015 Medications Active Medications SIG Qnty Indications Ordering Date Provider Colcrys 2 tabs po x1, then 1 30tabs Shae Charles MD 10/06/2018 0.6mg Tablets tab 1 hr later, as needed for gout flare up. Max 3 tabs in 24 hrs, wait 3 days to repeat Metformin HCL take 1 tablet by 180tabs E11.9 Shae Charles MD 09/01/2018 500mg mouth twice a day Tablets with food Shingrix 0.5 milliliters 2joaquín Caban 07/17/2018 50mcg/0.5ML intramuscular now Fidel Granda,FACP Suspension Rec and 2-3 months later repeat Fluticasone 1 sprays each 16gm J06.9 Jayashree Lee, 06/30/2018 Propionate nostril daily as Fidel 50mcg/Act needed Suspension Torsemide take 1 tablets by 90tabs R06.02 Shae Charles MD 06/25/2018 20mg mouth every day Tablets Omeprazole Take One Capsule By 30caps R10.9 Shae Charles MD 02/19/2018 40mg Mouth Every Day Capsules DR [facility] Ashley Hammond, 12/07/2017 Kit spirometer, use as MD instructed Metoprolol Succinate Take One Tablet By 90tabs I10 Jayashree Lee, 2016 ER Mouth Every Day M.DNima 25mg Tablets ER 24HR Epipen 2-Jl use as directed joann Charles MD 08/20/2016 0.3mg/0.3ML Solution Auto-Inject Montelukast Sodium Take One Tablet By 90tabs Ashley Hammond, 11/28/2014 Mouth Every Day 10mg Tablets Acetaminophen take 2 tabs prn max 100caps Germain Caban 10/05/2012 500mg 6 tabs a day Fidel Granda,FACP Capsules Multivitamins 1 capsule qiana;y 30caps Triston Allison 11/25/2011 Fidel Enamorado Capsules Bactroban topically as needed 15gm Germain Caban 2% Cream Fidel Granda,FACP Oxygen 4 liters at bedtime Kaylah Jiménez, 2LP Via N/C and with exertion. N.P. Levsin/SL 1 every 4 hours as 120tabs Germain Caban 0.125mg needed (up to 3 Fidel Granda,FACP Tablets Sub daily) Duloxetine HCL 1 by mouth every day Unknown 60mg Caps DR Shruthi Dutasteride 1 by mouth every day Unknown 0.5mg Capsules Vascepa Take Two Capsules By Unknown 1gm Capsules Mouth Twice A Day History Medications Cortisporin-TC instill 5 drops 10ml B37.84 Mukesh Crisostomo 12/18/2018 - into affected Fidel Baugh 12/18/2018 3.3-3-10-0.5mg/ml ear 3 times per Suspension day for 7 days Acetic Acid 5 drops to r ear 15ml B37.84 Mukesh Crisostomo 12/18/2018 - 2% Solution three times a Fidel Baugh 02/03/2019 day for 1 week Immunizations CPT Code Status Date Vaccine Lot # [id number] Given 01/14/2018 Influenza Virus Vaccine, Quadrivalent, Split, [id number] Preservative Free 64211 Given 02/21/2017 Influenza Virus Vaccine, Quadrivalent, Split, [id number] Preservative Free 52603 Given 01/29/2016 Influenza Virus Vaccine, Quadrivalent, Split, [id number] Preservative Free [id number] Given 03/28/2015 Fluvirin Im 3Yrs And Older 50264 Given 03/08/2015 Influenza Virus Vaccine, Quadrivalent, Split, [id number] Preservative Free 44337 Given 09/15/2014 Pneumococcal Conjugate Vaccine 13 Valent For [id number] Intramuscular Use 04262 Given 03/14/2014 Flu Vaccine Split Virus Preservative Free For [id number] Indiv 3Yr Older 39343 Given 03/11/2013 Flu Vaccine Split Virus Preservative Free For [id number] Indiv 3Yr Older Q2037 Given 03/17/2012 Fluvirin Im 3Yrs And Older [id number] 34227 Given 11/14/2011 Pneumonia Vaccine [id number] 74822 Given 04/02/2011 Influenza Virus 3Yrs & Over [id number] 75339 Given 02/10/2010 Influenza Virus 3Yrs & Over 91555 Given 05/25/2009 Influenza Virus 3Yrs & Over [id number] 40062 Given 05/03/2009 Influenza Virus Vaccine, Pandemic Formulation [id number] 5P 36697 Given 05/03/2009 Administration Swine Flu Shot 44988 Given 05/13/2008 Influenza Virus 3Yrs & Over 81417 Given 05/13/2008 Influenza Virus 3Yrs & Over [id number] 10499 Given 12/18/2007 Zoster (Zostavax) 07363 Given 07/16/2006 Tetanus And Diptheria (Td) For Adult Use Preservative Free 92783 Given 03/26/2006 Pneumonia Vaccine Vital Signs Date Vital Result Comment 03/12/2019 9:36am Height 71 inches 5'11" Weight 288.00 lb Heart Rate 74 /min BP Systolic Sitting 118 mmHg Lue lg cuff BP Diastolic Sitting 68 mmHg Lue lg cuff Body Temperature 95.4 F O2 % BldC Oximetry 91 % BMI (Body Mass Index) 40.2 kg/m2 02/01/2019 9:42am Height 71 inches 5'11" Weight 284.00 lb Heart Rate 76 /min BP Systolic Sitting 119 mmHg left arm large cuff BP Diastolic Sitting 72 mmHg left arm large cuff O2 % BldC Oximetry 91 % room air BMI (Body Mass Index) 39.6 kg/m2 Results Test Acquired Date Facility Test Result H/L Range Note Laboratory test 03/12/2019 [employer] In House Hemoglobin A1c 6.4 5-7 finding Urine Culture And 01/22/2019 [facility] Urine Culture SEE RESULT [address] [place] [address] [phone] Teresa Igg AB Reflex 01/22/2019 [facility] SS-A/Ro <0.2 U [address] [place] [address] [phone] SS-B/La Antibody <0.2 U 3 Sm ([place]) IgG Antibody <0.2 U 4 DOPE WORKER Antibody, IgG 0.3 U 5 Scl-70 (Scleroderma) Antibody <0.2 U 6 Rebecca-1 Antibody <0.2 U 7 Laboratory test 01/22/2019 [facility] Total Protein 18 mg/dL finding [address] Random Urine [place], [place] [address] [phone] Immunoglobulin A (Iga) 204 mg/dL 61 - 356 8 Urine Protein Elctrophoresis 01/22/2019 [facility] Albumin 75 % 9 (RDM) [address] [place] [address] [phone] Alpha-1 Globulin 4 % 10 Alpha-2 Globulin 6 % 11 Beta Globulin 8 % 12 Gamma Globulin 8 % 13 Albumin/Globulin Ratio 2.99 % Impression See Comment 14 Total Protein(Pep) Urine 17 mg/dL 15 Laboratory test 01/22/2019 [facility] Urine Creatinine 46.80 mg/ dL finding [address] [place] [address] [phone] Urinalysis 01/22/2019 [facility] Urine Color Yellow Profile [address] [place] [address] [phone] Urine Appearance Clear Urine Specific [place] 1.016 Normal 1.010-1.030 Urine pH 6.0 Normal 5-9 Urine Urobilinogen Negative Negative Urine Ketones Negative Negative Urine Protein Negative Negative Urine Leukocytes Trace Abnormal Negative Urine Blood 1+ Abnormal Negative Urine Nitrite Negative Negative Urine Bilirubin Negative Negative Urine Glucose Negative Negative Urine White Blood Cell 1+(6-10/hpf) Abnormal Absent Urine Red Blood Cell Trace(0-2/hpf) Absent Urine Bacteria Absent Absent Total Protein 24HR 01/22/2019 [facility] Urine Collection Time [address] [place] [address] [phone] Urine Total Volume 3150 mL Urine Total Protein/24HR 220 mg/24Hr High 0-165 Laboratory 01/22/2019 [facility] Uric Acid 8.4 High 4.4-7.[address] mg/dL [place], [place] [address] [phone] Anca Panel For 01/22/2019 [facility] Myeloperoxidase AB < 0.2 U [address] [place] [address] [phone] Proteinase 3 AB < 0.2 U 17 CBC Auto 01/22/2019 [facility] White Blood 9.0 10^3/uL Normal 3.5-10.[address] [place] [address] [phone] Red Blood Count 5.16 10^6/uL Normal 4.18-5.48 Hemoglobin 15.5 g/dL Normal 14.0-18.0 Hematocrit 45 % Normal 42-52 Mean Corpuscular Volume 88 fL Normal 80-94 Mean Corpuscular Hemoglobin 30 pg Normal 27-31 Mean Corpuscular HGB Conc 34 g/dL Normal 31-36 Red Cell Distribution Width 16 % High 10-15 Platelet Count 209 10^3/uL Normal 150-450 Mean Platelet Volume 8.7 fL Normal 7.4-10.4 Abs Neutrophils 6.9 10^3/uL Normal 1.5-7.7 Abs Lymphocytes 1.0 10^3/uL Normal 1.0-4.8 Abs Monocytes 0.6 10^3/uL Normal 0-0.8 Abs Eosinophils 0.4 10^3/uL Normal 0-0.6 Abs Basophils 0.1 10^3/uL Normal 0-0.2 Abs Nucleated RBC 0.0 10^3/uL Granulocyte % 76.8 % Lymphocyte % 11.2 % Monocyte % 6.8 % Eosinophil % 3.9 % Basophil % 1.3 % Nucleated Red Blood Cells % 0.0 Laboratory test 01/22/2019 [facility] Creatine 48 U/L Normal 10-223 finding 101 [facility] Kinase(CK) [place] [address] [phone] Glomerular Basement Membrane <0.2 U 18 Hepatitis B Surface Ag Nonreactive Nonreactive Hepatitis C Antibody 01/22/2019 [facility] HCV Index 0.02 s/c [address] [place] [address] [phone] Hepatitis C Antibody Negative Negative Comp Metabolic 01/22/2019 [facility] Sodium 137 mmol/L Normal 135-145 Panel [address] [place] [address] [phone] Potassium 4.4 mmol/L Normal 3.5-5.0 Chloride 100 mmol/L Low 101-111 Co2 Carbon Dioxide 28 mmol/L Normal 22-32 Anion Gap 9 mmol/L Normal 2-11 Glucose 115 mg/dL High 70-100 Blood Urea Nitrogen 47 mg/dL High 6-24 Creatinine 1.23 mg/dL High 0.67-1.17 BUN/Creatinine Ratio 38.2 High 8-20 Calcium 9.7 mg/dL Normal 8.6-10.3 Total Protein 6.4 g/dL Normal 6.4-8.9 Albumin 4.0 g/dL Normal 3.2-5.2 Globulin 2.4 g/dL Normal 2-4 Albumin/Globulin Ratio 1.7 Normal 1-3 Total Bilirubin 0.50 mg/dL Normal 0.2-1.0 Alkaline Phosphatase 64 U/L Normal 34-104 Alt 12 U/L Normal 7-52 Ast 17 U/L Normal 13-39 Egfr Non- 57.2 >60 Egfr 69.2 >60 19 Creatinine Clearance 01/22/2019 [facility] Urine Collection [address] [place] [address] [phone] Urine Total Volume 3150 mL Creatinine, Serum 1.26 mg/dL High 0.51-0.95 Creatinine Clearance 81 mL/min Low 97-137 Haystack/Lambda Free 01/22/2019 [facility] Haystack Free 5.71 mg/dL Abnormal 20 Light Chains Ser [address] [place] [address] [phone] Lambda Free Light Chain 2.65 mg/dL Abnormal 21 Haystack/Lambda Free Light Chain 2.15 Abnormal 22 Protein 01/22/2019 [facility] Total 6.4 g/dL 6.3 - Electrophoresis [address] Protein(Pep) 7.9 [place] [address] [phone] Albumin 3.1 g/dL Abnormal 3.4-4.7 Alpha-1 Globulin 0.3 g/dL 0.1-0.3 Alpha-2 Globulin 1.2 g/dL Abnormal 0.6-1.0 Beta Globulin 0.9 g/dL 0.7-1.2 Gamma Globulin 0.9 g/dL 0.6-1.6 Albumin/Globulin Ratio 0.93 Impression See Comment 23 Laboratory test 01/19/2019 [facility] Uric Acid 8.5 mg/dL High 4.4-7.[address] [place] [address] [phone] Laboratory test 10/13/2018 [facility] Troponin- 0.00 <0.04 24, [address] I (TnI) ng/[place] [address] [phone] CBC Auto Diff 10/13/2018 [facility] White 10.3 Normal 3.5- 10.[address] Blood 10^3/[place] [address] Count [phone] Red Blood Count 5.18 10^6/uL Normal 4.18-5.48 Hemoglobin 15.0 g/dL Normal 14.0-18.0 Hematocrit 45 % Normal 42-52 Mean Corpuscular Volume 87 fL Normal 80-94 Mean Corpuscular Hemoglobin 29 pg Normal 27-31 Mean Corpuscular HGB Conc 33 g/dL Normal 31-36 Red Cell Distribution Width 16 % High 10-15 Platelet Count 198 10^3/uL Normal 150-450 Mean Platelet Volume 8.2 fL Normal 7.4-10.4 Abs Neutrophils 7.8 10^3/uL High 1.5-7.7 Abs Lymphocytes 1.0 10^3/uL Normal 1.0-4.8 Abs Monocytes 0.8 10^3/uL Normal 0-0.8 Abs Eosinophils 0.5 10^3/uL Normal 0-0.6 Abs Basophils 0.1 10^3/uL Normal 0-0.2 Abs Nucleated RBC 0.0 10^3/uL Granulocyte % 76.3 % Lymphocyte % 10.2 % Monocyte % 7.5 % Eosinophil % 4.7 % Basophil % 1.3 % Nucleated Red Blood Cells % 0.1 Inr/Protime 10/13/2018 [facility] Inr 1.00 Normal 0.82-1.09 26 [address] [place] [address] [phone] Comp Metabolic 10/13/2018 [facility] Sodium 138 mmol/L Normal 135-145 Panel [address] [place], [place] [address] [phone] Potassium 4.5 mmol/L Normal 3.5-5.0 Chloride 101 mmol/L Normal 101-111 Co2 Carbon Dioxide 27 mmol/L Normal 22-32 Anion Gap 10 mmol/L Normal 2-11 Glucose 142 mg/dL High 70-100 Blood Urea Nitrogen 50 mg/dL High 6-24 Creatinine 1.46 mg/dL High 0.67-1.17 BUN/Creatinine Ratio 34.2 High 8-20 Calcium 10.0 mg/dL Normal 8.6-10.3 Total Protein 7.1 g/dL Normal 6.4-8.9 Albumin 3.9 g/dL Normal 3.2-5.2 Globulin 3.2 g/dL Normal 2-4 Albumin/Globulin Ratio 1.2 Normal 1-3 Total Bilirubin 0.50 mg/dL Normal 0.2-1.0 Alkaline Phosphatase 66 U/L Normal 34-104 Alt 12 U/L Normal 7-52 Ast 16 U/L Normal 13-39 Egfr Non- 46.9 >60 Egfr 56.8 >60 27 Laboratory test 10/13/2018 [facility] Troponin-I (TnI) 0.00 ng/ mL <0.04 [address] [place] [address] [phone] B-Type Natriuretic Peptide BNP 19 pg/mL <=100 1 SEE RESULT BELOW Name: LYNN WANG : [address]: Pat Beauchamp MD Acct: [id number] Unit: [id number] AGE: 78 Location: LAB Re01/22/19 SEX: M Status: REG REF SPEC: [id number] KHUSHI: 01/22/19-1240 [facility] DR: Pat Beauchamp MD REQ: [id number] RECD: 01/22/19-1302 STATUS: VERENA HAY DR: Shae Moreno MD _ SOURCE: URINE SPDESC: ORDERED: Urine Culture Procedure Result Reported Site Urine Culture Final 01/24/19- 930 ML No growth of clinically significant organisms * ML - Main Lab . END OF REPORT DEPARTMENT OF PATHOLOGY, [address] [place] [address] Phoenix Del Castillo M.D. Director [facility] # [id number] 2 REFERENCE VALUE <1.0 (Negative) 3 REFERENCE VALUE <1.0 (Negative) 4 REFERENCE VALUE <1.0 (Negative) 5 REFERENCE VALUE <1.0 (Negative) 6 REFERENCE VALUE <1.0 (Negative) 7 REFERENCE VALUE <1.0 (Negative) Test Performed by: [place] [address] [employer] Supervisor: Kishan Hernandez M.D. Ph.D.; CLIA# [id number] 8 Test Performed by: [place] [address] [employer] Supervisor: Kishan Hernandez M.D. Ph.D.; CLIA# [id number] 9 13 mg/dL 10 1 mg/dL 11 1 mg/dL 12 1 mg/dL 13 1 mg/dL 14 RESULT: All fractions present, no apparent M-spike. 15 ADDITIONAL INFORMATION On 10/22/2016 the total protein assay method changed resulting in approximately a 15% increase in protein values. Test Performed by: [place] [address] [employer] Supervisor: Kishan Hernandez M.D. Ph.D.; CLIA# [id number] Test Performed by: [address] [address] [employer] Supervisor: Kishan Hernandez M.D. Ph.D.; CLIA# [id number] 16 REFERENCE VALUE <0.4 (Negative) 17 REFERENCE VALUE <0.4 (Negative) Test Performed by: [place] [address] [employer] Supervisor: Kishan Hernandez M.D. Ph.D.; CLIA# [id number] 18 REFERENCE VALUE <1.0 (Negative) Test Performed by: [facility] [address] [place] [address] [employer] Supervisor: Kishan Hernandez M.D. Ph.D.; CLIA# [id number] 19 Because ethnic data is not always readily available, this report includes an eGFR for both -Americans and non- Americans. The National Kidney Disease Education Program (NKDEP) does not endorse the use of the MDRD equation for patients that are not between the ages of 18 and 70, are , have extremes of body size, muscle mass, or nutritional status, or are non- or non-. According to the National Kidney Foundation, irrespective of diagnosis, the stage of the disease is based on the level of kidney function: Stage Description GFR(mL/min/1.73 m(2)) 1 Kidney damage with normal or decreased GFR 90 2 Kidney damage with mild decrease in GFR 60-89 3 Moderate decrease in GFR 30-59 4 Severe decrease in GFR 15-29 5 Kidney failure <15 (or dialysis) 20 REFERENCE VALUE 0.3300-1.94 21 REFERENCE VALUE 0.5700-2.63 22 Elevated free light chain ratios between 1.66 and 3.00 may occur due to polyclonal hypergammaglobulinemia or impaired renal clearance. An isolated increased free light chain ratio in this range should be interpreted with caution, and clinical correlation is recommended. REFERENCE VALUE 0.2600-1.65 Test Performed by: [facility] [place] [address] [employer] Supervisor: Kishan Hernandez M.D. Ph.D.; CLIA# [id number] 23 RESULT: No apparent monoclonal protein on serum electrophoresis. Test Performed by: [facility] [place] [address] [employer] Supervisor: Kishan Hernandez M.D. Ph.D.; CLIA# [id number] 24 PT IS NO AVAILABLE/ NOT IN ROOM AT THIS TIME [id number] 25 Troponin-I testing on Plasma Separator Tubes (PST) has a known false positive rate of 0.20-0.40%. All positive troponins reflex immediately to secondary confirmatory testing. Using the [employer] DxI 800 Access Immunoassay systems, the 99th percentile upper reference limit was demonstrated to be < 0.03 ng/mL. 26 Standard intensity warfarin therapeutic range: 2.0-3.0 High intensity warfarin therapeutic range: 2.5-3.5 27 Because ethnic data is not always readily available, this report includes an eGFR for both -Americans and non- Americans. The National Kidney Disease Education Program (NKDEP) does not endorse the use of the MDRD equation for patients that are not between the ages of 18 and 70, are , have extremes of body size, muscle mass, or nutritional status, or are non- or non-. According to the National Kidney Foundation, irrespective of diagnosis, the stage of the disease is based on the level of kidney function: Stage Description GFR(mL/min/1.73 m(2)) 1 Kidney damage with normal or decreased GFR 90 2 Kidney damage with mild decrease in GFR 60-89 3 Moderate decrease in GFR 30-59 4 Severe decrease in GFR 15-29 5 Kidney failure <15 (or dialysis) 28 Troponin-I testing on Plasma Separator Tubes (PST) has a known false positive rate of 0.20-0.40%. All positive troponins reflex immediately to secondary confirmatory testing. Using the [employer] DxI 800 Access Immunoassay systems, the 99th percentile upper reference limit was demonstrated to be < 0.03 ng/mL. Procedures Date Code Description Status 10/26/2018 81070 EKG Tracing & Interpretation Completed 04/06/2018 [id number] Diabetic Retinal Eye Exam Completed 06/19/2017 [id number] Diabetic Retinal Eye Exam Completed 02/20/2017 [id number] Colonoscopy Completed 05/23/2016 [id number] Diabetic Retinal Eye Exam Completed 05/18/2015 [id number] Diabetic Retinal Eye Exam Completed 04/09/2013 [id number] Diabetic Retinal Eye Exam Completed 12/19/2011 [id number] Colonoscopy Completed 12/23/2008 [id number] Colonoscopy Completed Medical Devices Description No Information Available Encounters Type Date Location Provider Dx Diagnosis Office Visit 02/01/2019 [facility] Nephrology Pat Beauchamp, Q61.2 Polycystic kidney, 9:30a MD adult type N18.9 Chronic kidney disease, unspecified Office Visit 01/19/2019 1:40p [facility] Internal Shae Charles MD H92.01 Otalgia , right Medicine - Ccmob ear E79.0 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 inflam arthrit and tophaceous dis I10 Essential (primary) hypertension I26.99 Other pulmonary embolism without acute cor pulmonale Office Visit 01/01/2019 1:00p Pulmonology And Ashley J44.9 [facility] Manish obstructive [facility] pulmonary disease, unspecified G47.33 Obstructive sleep apnea (adult) (pediatric) R09.02 Hypoxemia Office Visit 12/11/2018 10:40a [facility] Internal Mukesh Crisostomo H92.01 Otalgia, right ear Medicine - Fidel Baugh Ccmob Office Visit 12/02/2018 1:40p [facility] Internal Shae Charles, E11.9 Type 2 diabetes Medicine - mellitus without Ccmob complications Office Visit 10/26/2018 11:00a [facility] Internal Shae Charles R42 Dizziness and Medicine - giddiness Ccmob I10 Essential (primary) hypertension I45.10 Unspecified right bundle-branch block Office Visit 10/19/2018 2:00p [facility] Nephrology Pat N18.3 Chronic kidney MD Quynh disease, stage 3 (moderate) R31.9 Hematuria, unspecified I12.9 Hypertensive chronic kidney disease w stg 1-4/unsp chr kdny Q61.3 Polycystic kidney, unspecified Office Visit 10/16/2018 4:20p [employer] Internal Shae Charles MD I26.99 Other pulmonary Medicine - Ccmob embolism without acute cor pulmonale J44.9 Chronic obstructive pulmonary disease, unspecified I12.9 Hypertensive chronic kidney disease w stg 1-4/unsp chr kdny Office Visit 10/14/2018 10:37a [facility] Yolanda I26.99 Other pulmonary Assoc,pc [place], PA-C embolism Hospitalists without acute cor pulmonale Office Visit 10/13/2018 10:37a [facility] Mar Menard MD I26.99 Other pulmonary Assoc,pc embolism Hospitalists without acute cor pulmonale Assessments Date Code Description Provider 03/12/2019 E11.9 Type 2 diabetes mellitus without Thania Nation MD complications 03/12/2019 I10 Essential (primary) hypertension Thania Nation MD 03/12/2019 J44.9 Chronic obstructive pulmonary disease, Thania Nation MD unspecified 03/12/2019 N18.9 Chronic kidney disease, unspecified Thania Nation MD 03/12/2019 E78.2 Mixed hyperlipidemia Thania Nation MD 03/12/2019 K21.0 Gastro-esophageal reflux disease with Thania Nation MD esophagitis 02/01/2019 Q61.2 Polycystic kidney, adult type Pat Beauchamp MD 02/01/2019 N18.9 Chronic kidney disease, unspecified Pat Beauchamp MD 01/19/2019 H92.01 Otalgia, right ear Shae Charles MD 01/19/2019 E79.0 Hyperuricemia without signs of inflammatory Shae Charles MD arthritis and tophaceous disease 01/19/2019 I10 Essential (primary) hypertension Shae Charles MD 01/19/2019 I26.99 Other pulmonary embolism without acute cor Shae Charles MD pulmonale 01/01/2019 J44.9 Chronic obstructive pulmonary disease, Ashley Hammond MD unspecified 01/01/2019 G47.33 Obstructive sleep apnea (adult) (pediatric) Ashley Hammond MD 01/01/2019 R09.02 Hypoxemia Ashley Hammond MD 12/11/2018 H92.01 Otalgia, right ear Mukesh Baugh M.D. 12/02/2018 E11.9 Type 2 diabetes mellitus without Shae Charles MD complications 10/26/2018 R42 Dizziness and giddiness Shae Charles MD 10/26/2018 I10 Essential (primary) hypertension Shae Charles MD 10/26/2018 I45.10 Unspecified right bundle-branch block Shae Charles MD 10/19/2018 N18.3 Chronic kidney disease, stage 3 (moderate) Pat Beauchamp MD 10/19/2018 R31.9 Hematuria, unspecified Pat Beauchamp MD 10/19/2018 I12.9 Hypertensive chronic kidney disease with Pat Beauchamp MD stage 1 through sta 10/19/2018 Q61.3 Polycystic kidney, unspecified Pat Beauchamp MD 10/16/2018 I26.99 Other pulmonary embolism without acute cor Shae Charles MD pulmonale 10/16/2018 J44.9 Chronic obstructive pulmonary disease, Shae Charles MD unspecified 10/16/2018 I12.9 Hypertensive chronic kidney disease with Shae Charles MD stage 1 through sta 10/14/2018 I26.99 Other pulmonary embolism without acute cor NAHID Sykes-Meron pulmonale 10/13/2018 I26.99 Other pulmonary embolism without acute cor Mar Menard MD pulmonale Plan of Treatment Future Appointment(s):08/31/2019 10:00 am - Shae Charles MD at [facility] Internal Medicine - Ccmob06/04/2019 11:30 am - Barbie Thakur MD at [facility] Aewrfpzzww58/15/ 2019 - Thania Nation MDE11.9 Type 2 diabetes mellitus without [id number] Essential (primary) rungliyqtbboP38.9 Chronic obstructive pulmonary disease, zojewesovouF16.9 Chronic kidney disease, rsodyiizcuaT07.2 Mixed odgmhkpkzjjnorP55.0 Gastro-esophageal reflux disease with esophagitisComments:Stop taking the Ranitidine. If having worse symptoms, please call to let me know Functional Status Description No Information Available Mental Status Description No Information Available Referrals Refer to Reason for Referral Status Appt Date [facility] Sent 12/10/[address] [place] [address] [address] [place] [address] [phone]
--- OUTSIDE RECORDS SUMMARY | 2019-04-15 20:06 | XMS REPORT | Continuity of Care Document ---
:1940 External Reference #:[id number] Author Name Elvia Rosales PA-C Address [address] [place] [address] Care Team Providers Name Role Phone [facility]-Oxygen Supplies Care Team Information Gospel Worker [phone] Amilcar Almaraz NP - Acute Care Care Team Information Gospel Worker [phone] Ashley Hammond MD - Pulmonary Disease Care Team Information Gospel Worker Shae Charles MD - Family Medicine Care Team Information Gospel Worker Problems Active Problems Provider Date Difficulty speaking Triston Fontenot MD Onset: 02/21/2011 Headache Triston Fontenot MD Onset: 02/21/2011 Acute maxillary sinusitis Corinne Sy [employer] Onset: 02/21/2011 Chronic pharyngitis Corinne Sy [employer] Onset: 02/21/2011 Allergic rhinitis due to pollen Corinne Sy [employer] Onset: 02/21/2011 Gastroesophageal reflux disease Claude Loyd [...] is a former smoker Smoking Status Reviewed: 03/23/19 Patient is a former smoker Allergies, Adverse Reactions, Alerts Active Allergies Reaction Severity Comments Date Ibuprofen 08/08/2004 Levaquin muscle aches 07/12/2009 Medications Active Medications SIG Qnty Indications Ordering Provider Date Finasteride Josh PEARCE, Saturnino 5mg Tablets Ventolin HFA Inhale Two Puffs Unknown By Mouth Every 4 108(90Base) mcg/Act Hours as Needed Aerosol For Wheezing Fluticasone Buckeye One Buckeye In Unknown Propionate Each Nostril Every 50mcg/Act [...] Information Available Procedures Date Code Description Status 03/24/2019 49548 Fiberoptic Laryngoscopy Completed Medical Devices Description No Information Available Encounters Type Date Location Provider Dx Diagnosis Office Visit 03/24/2019 Heydi Sharma H92.01 Otalgia, right ear 10:30a 04/28/07 CARLY 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
--- OUTSIDE RECORDS SUMMARY | 2019-04-15 20:06 | XMS REPORT | Continuity of Care Document ---
:1940 External Reference #:[id number] Author Name Jane Foy O.D. Address [address] [place] [address] Care Team Providers Name Role Phone Saturnino Clark M.D. - Urology Care Team Information Manager Process Excellence [phone] Ashley Hammond M.D. - Pulmonary Care Team Information Manager Process Excellence Disease Shae Charles MD - Internal Medicine Care Team Information Manager [employer] Problems Active Problems Provider Date Rosacea Onset: Acne Onset: Sleep apnea Onset: Note: Bipap Seasonal allergy Onset: Essential hypertension Onset: Hypercholesterolemia Onset: Large prostate Onset: H/O: depression Onset: Vitreous degeneration Claude Johns M.D. 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 Onset: Sjogren's Type 2 diabetes mellitus Claude Johns M.D. Onset: 05/18/2015 Presence of intraocular lens Claude Johns M.D. Onset: 05/18/2015 Transient visual loss Breanna Moseley O.D. Onset: 07/23/2016 Other injuries of left eye and orbit, Breanna Moseley O.D. Onset: 04/18/2018 subsequent encounter Social History Type Date Description Comments Sex Unknown ETOH Use Denies alcohol use Tobacco Use Start: Unknown End: Unknown Patient is a former smoker Recreational Drug Use Denies Drug Use Smoking Status Reviewed: 04/07/19 Patient is a former smoker Allergies, Adverse Reactions, Alerts Active Allergies Reaction Severity Comments Date Neosporin 05/18/2015 Ibuprofen 05/18/2015 Levaquin 05/18/2015 Yellow Jackets 05/23/2016 Medications Active Medications SIG Qnty Indications Ordering Provider Date Metoprolol Succinate ER 1 tab every day Unknown 25mg Tablets ER 24HR Montelukast Sodium 1 tab every day Unknown 10mg Tablets Multi Vitamin Daily Unknown Tablets Mupirocin as needed cuts , Unknown 2% Ointment bites Colchicine 1 tab every day Unknown 0.6mg Tablets as needed Acetaminophen up to 6 tablets Unknown 500mg Tablets per day Duloxetine HCL Unknown 60mg Caps DR Hawkins Hyoscyamine Sulfate Unknown 0.125mg Tablets Sub Omeprazole Colton Arenas 40mg Capsules Dutasterkarla Unknown 0.5mg Capsules Icosapent Ethyl Unknown Metformin HCL 2 tablets daily Shae Charles MD 500mg Tablets Torsemide Dylon Dougherty 20mg Tablets D.O. Epinephrine Unknown 0.3mg/0.3ML Solution Auto-Inject Fluticasone Propionate Jayashree Lee M.DNima 50mcg/Act Suspension Immunizations Description No Information Available Vital Signs Description No Information Available Results Description No Information Available Procedures Description No Information Available Medical Devices Description No Information Available Encounters Description No Information Available Assessments Date Code Description Provider 04/07/2019 E11.9 Type 2 diabetes mellitus without Jane Foy O.D. complications 04/07/2019 H43.813 Vitreous degeneration, bilateral Jane Foy O.D. 04/07/2019 Z96.1 Presence of intraocular lens Jane Foy O.D. Plan of Treatment 04/07/2019 - Jane Foy O.D.E11.9 Type 2 diabetes mellitus without complicationsComments:You have diabetes. I do not detect any changes in both of your retinas from diabetes at this time. Proper control of your diabetes is important for the health of your eyes. Changes in your eyes from diabetes can happen without symptoms, so it is important that you have your eyes examined.H43.813 Vitreous degeneration, bilateralComments:You have a Posterior Vitreous Detachment. Please read the pamphlet that was given to you. If you have any changes in your floaters or flashing lights, please contact this office.Z96.1 Presence of intraocular lensComments:The artificial lens implants in both eyes appear to be stable at this time. TRY +2.00 READING GLASSES Functional Status Description No Information Available Mental Status Description No Information Available Referrals Description No Information Available
[2019-04-15 23:45] LABS: ABS Eosinophils 0.4 10^3/ul (0-0.6); ABS Lymphocytes 1.4 10^3/ul (1.0-4.8); ABS Monocytes 0.8 10^3/ul (0-0.8); ABS Neutrophils 6.9 10^3/ul (1.5-7.7); Eosinophil % 3.8 %; Hematocrit 45 % (42-52); Hemoglobin 15.2 g/dL (14.0-18.0); Lymphocyte % 14.9 %; Mean Corpuscular HGB Conc 34 g/dL (31-36); Mean Corpuscular Hemoglobin 30 pg (27-31); Mean Corpuscular Volume 89 fL (80-94); Mean Platelet Volume 7.8 fL (7.4-10.4); Nucleated Red Blood Cells % 0.1; Platelet Count 217 10^3/uL (150-450); Red Blood Count 5.02 10^6 /uL (4.18-5.48); Red Cell Distribution Width 15 % (10-15); White Blood Count 9.5 10^3/uL (3.5-10.8)
[2019-04-16 00:05] LABS: Albumin/Globulin Ratio 1.3 (1-3); BUN/Creatinine Ratio 31.3 (8-20); Calcium 9.9 mg/dL (8.6-10.3); EGFR African American 55.1 (>60); EGFR Non-African American 45.5 (>60); Globulin 3.2 g/dL (2-4); Potassium 4.6 mmol/L (3.5-5.0); Total Bilirubin 0.4 mg/dL (0.2-1.0); Total Protein 7.2 g/dL (6.4-8.9)
[2019-04-16 00:07] LABS: Troponin I 0.01 ng/mL (<0.03)
--- NOTE | 2019-04-16 00:31 | ED ---
Upper Extremity Pain - HPI Summary HPI Summary: 79-year-old male presents to emergency department today complaining of left shoulder pain for 6 weeks. He does not recall any trauma or event which causes symptoms. He describes it as a 3 out of 10 stabbing pain which is made worse with movement and made better with rest. Patient has full range of motion and motor function. Patient has full sensation. Patient denies fever, chills, chest pain, abdominal pain with urination, shortness breath. Family and social history noncontributory. - History of Current Complaint Chief Complaint: EDExtremityUpper Stated Complaint: LT SHOULDER AND ARM PAIN PER PT Time Seen by Provider: 04/15/19 23:54 Hx Obtained From: Patient Mechanism Of Injury: Unknown Onset/Duration: Started Weeks Ago Timing: Lasting Weeks Severity Initially: Mild Severity Currently: Mild Pain Location: Shoulder Character: Aching Aggravating Factor(s): Movement, Lifting, Flexion, Internal/External Rotation, Abduction, Adduction Alleviating Factor(s): Rest, Ice Associated Signs & Symptoms: Negative: Swelling, Redness, Bruising, Fever, Weakness, Numbness/Tingling, Chest Pain, Back Pain, Neck Pain, Diaphoresis, Nausea, Vomiting - Allergies/Home Medications Allergies/Adverse Reactions: Allergies Allergy/AdvReac Type Severity Reaction Status Date / Time bacitracin Allergy Rash Verified 04/15/19 19:58 [From Neosporin ([id number])] ibuprofen Allergy excessive Verified 04/15/19 19:58 thirst levofloxacin [From Levaquin] Allergy tendonitis Verified 04/15/19 19:58 neomycin Allergy Rash Verified 04/15/19 19:58 [From Neosporin ([id number]-ehp-[id number])] polymyxin B Allergy Rash Verified 04/15/19 19:58 [From Neosporin ([id number]-ylb-[id number])] yellow jacket Allergy Severe Anaphylatic Uncoded 04/15/19 19:58 Shock PMH/Surg Hx/FS Hx/Imm Hx Endocrine/Hematology History: Reports: Hx Diabetes - TYPE 2 Denies: Hx Systemic Lupus Erythematosus Cardiovascular History: Reports: Hx Aneurysm - repaired AAA, repaired x 2 , Hx Hypercholesterolemia, Hx Hypertension - ON DAILY MEDS, Other Cardiovascular Problems/Disorders Denies: Hx Congestive Heart Failure, Hx Pacemaker/ICD Respiratory History: Reports: Hx Asthma - ?, Hx Chronic Obstructive Pulmonary Disease (COPD), Hx Sleep Apnea, Other Respiratory Problems/Disorders - USES OXYGEN AT 4 L WITH CPAP AT NIGHT GI History: Reports: Hx Gastroesophageal Reflux Disease - AFFECTS VOCAL CORDS, Other GI Disorders - hx AAA History: Reports: Hx Benign Prostatic Hyperplasia, Other Problems/ Disorders - enlarged prostate Denies: Hx Dialysis, Hx Renal Disease Musculoskeletal History: Reports: Hx Tendonitis - LEFT SHOULDER AND ARM Denies: Hx Rheumatoid Arthritis Sensory History: Reports: Hx Cataracts - BILATERAL, Hx Contacts or Glasses - GLASSES Denies: Hx Hearing Aid Opthamlomology History: Reports: Hx Cataracts - BILATERAL, Hx Contacts or Glasses - GLASSES Neurological History: Reports: Hx Headaches, Hx Migraine - HX OF MIGRAINES IN THE PAST (NONE SINCE USING CPAP Psychiatric History: Reports: Hx Depression Denies: Hx Panic Disorder - Cancer History Hx Chemotherapy: No - Surgical History Surgery Procedure, Year, and Place: 2004 aaa. hernia repair- WITH MESH. 1987 polyps larynx benign. 2007 RIGHT TOTAL KNEE REPLACEMENT [facility]. 2005 & 2013- bilat EYE CATARACT [facility] [place]. 2019 AAA repair, Dr. Patel [facility]. 2013 POPITEAL ARTERY AN. REPAIR [facility]. Hx Anesthesia Reactions: No Infectious Disease History: No Infectious Disease History: Denies: Traveled Outside the [place] in Last 30 Days - Family History Known Family History: Positive: Cardiac Disease, Other - aortic aneurysm. - Social History Alcohol Use: None Hx Substance Use: No Substance Use Type: Reports: None Smoking Status (MU): Former Smoker Type: Cigarettes Amount Used/How Often: 2 PPD X 20 YEARS Have You Smoked in the Last Year: No Review of Systems Constitutional: Negative Eyes: Negative ENT: Negative Cardiovascular: Negative Respiratory: Negative Gastrointestinal: Negative Genitourinary: Negative Positive: Myalgia Skin: Negative Neurological: Negative Psychological: Normal All Other Systems Reviewed And Are Negative: Yes Physical Exam - Summary Physical Exam Summary: Inspection revealed no ecchymosis, edema, erythema to upper shoulders bilaterally. Radial pulses 2+ bilaterally. Patient had full range of motion in upper troponin is bilaterally. No tenderness to palpation of the shoulder girdle. Negative empty can test, Dennison test, AC crossover test. Triage Information Reviewed: Yes Vital Signs On Initial Exam: Initial Vitals Temp Pulse Resp BP Pulse Ox 97.7 F 68 16 140/80 93 04/15/19 19:50 04/15/19 19:50 04/15/19 19:50 04/15/19 19:50 04/15/19 19:50 Vital Signs Reviewed: Yes Appearance: Positive: Well-Appearing, No Pain Distress, Well-Nourished Skin: Positive: Warm, Skin Color Reflects Adequate Perfusion Eyes: Positive: EOMI, MELINA ENT: Positive: Hearing grossly normal Neck: Positive: Supple, Nontender Respiratory/Lung Sounds: Positive: Clear to Auscultation, Breath Sounds Present Cardiovascular: Positive: RRR, S1, S2 Abdomen Description: Positive: Nontender, No Organomegaly, Soft Bowel Sounds: Positive: Present Musculoskeletal: Positive: Normal, Strength/ROM Intact Neurological: Positive: Sensory/Motor Intact, Alert, Oriented to Person Place, Time, Normal Gait, Speech Normal Psychiatric: Positive: Normal AVPU Assessment: Alert Procedures - Sedation Patient Received Moderate/Deep Sedation with Procedure: No Diagnostics - Vital Signs Vital Signs Temp Pulse Resp BP Pulse Ox 04/15/19 22:20 97.8 F 82 16 133/86 94 04/15/19 19:50 97.7 F 68 16 140/80 93 - Laboratory Lab Results: Lab Results 04/15/19 04/15/19 Range/Units 23:38 23:38 WBC 9.5 (3.5-10.8) 10^3/uL RBC 5.02 (4.18-5.48) 10^6 /uL Hgb 15.2 (14.0-18.0) g/dL Hct 45 (42-52) % MCV 89 (80-94) fL MCH 30 (27-31) pg MCHC 34 (31-36) g/dL RDW 15 (10-15) % Plt Count 217 (150-450) 10^3/uL MPV 7.8 (7.4-10.4) fL Neut % (Auto) 72.2 % Lymph % (Auto) 14.9 % Wright % (Auto) 8.8 % Eos % (Auto) 3.8 % Baso % (Auto) 0.3 % Absolute Neuts (auto) 6.9 (1.5-7.7) 10^3/ul Absolute Lymphs (auto) 1.4 (1.0-4.8) 10^3/ul Absolute Monos (auto) 0.8 (0-0.8) 10^3/ul Absolute Eos (auto) 0.4 (0-0.6) 10^3/ul Absolute Basos (auto) 0.0 (0-0.2) 10^3/ul Absolute Nucleated RBC 0.0 10^3/ul Nucleated RBC % 0.1 Sodium 140 (135-145) mmol/L Potassium 4.6 (3.5-5.0) mmol/L Chloride 100 L (101-111) mmol/L Carbon Dioxide 33 H (22-32) mmol/L Anion Gap 7 (2-11) mmol/L BUN 47 H (6-24) mg/dL Creatinine 1.50 H (0.67-1.17) mg/dL Est GFR ( Amer) 55.1 (>60) Est GFR (Non-Af Amer) 45.5 (>60) BUN/Creatinine Ratio 31.3 H (8-20) Glucose 126 H (70-100) mg/dL Calcium 9.9 (8.6-10.3) mg/dL Total Bilirubin 0.40 (0.2-1.0) mg/dL AST 17 (13-39) U/L ALT 13 (7-52) U/L Alkaline Phosphatase 72 (34-104) U/L Troponin I 0.01 (<0.03) ng/mL Total Protein 7.2 (6.4-8.9) g/dL Albumin 4.0 (3.2-5.2) g/dL Globulin 3.2 (2-4) g/dL Albumin/Globulin Ratio 1.3 (1-3) Result Diagrams: 04/15/19 23:38 04/15/19 23:38 Lab Statement: Any lab studies that have been ordered have been reviewed, and results considered in the medical decision making process. Course/Dx - Course Course Of Treatment: Patient was evaluated for left shoulder pain. Vitals are stable. Labs revealed mild elevations and renal function however this is his baseline. X-ray revealed no evidence of acute fracture however there was significant for arthritis. Patient is to follow-up with orthopedic doctor in 5- 7 days for further evaluation and management of his symptoms. He is to take aspirin daily as well as use of topical medication for his symptoms. - Diagnoses Differential Diagnosis/HQI/PQRI: Positive: Arthritis, Contusion, Fracture ( Closed), Strain, Sprain Provider Diagnoses: Shoulder pain Discharge ED - Sign-Out/Discharge Documenting (check all that apply): Patient Departure - Discharge Plan Condition: Stable Disposition: HOME Patient Education Materials: Shoulder Pain (ED) Referrals: Shae Charles MD [Primary Care Provider] - Dylon Allen MD [Medical Doctor] - 7 Days Additional Instructions: Please follow up with orthopedics for further evaluation and management of your symptoms. You may take aspirin daily as well as use of topical medication for your symptoms. Please return to emergency department immediately if you develop any new or worsening symptoms. Please rest your arm and apply ice as needed. - Billing Disposition and Condition Condition: STABLE Disposition: Home
[2019-04-16 00:55] VITALS: BP 113/73
== END 2019-04-16 00:57 | disposition home or self-care (01) ==
LOC: ED 19:41
DX: M25.512 Pain in left shoulder (principal); E11.9 Type 2 diabetes mellitus without complications; E78.00 Pure hypercholesterolemia, unspecified; I10 Essential (primary) hypertension; J44.9 Chronic obstructive pulmonary disease, unspecified; K21.9 Gastro-esophageal reflux disease without esophagitis; N40.0 Benign prostatic hyperplasia without lower urinary tract symptoms; F32.9 Major depressive disorder, single episode, unspecified; Z99.81 Dependence on supplemental oxygen; Z96.651 Presence of right artificial knee joint; Z87.891 Personal history of nicotine dependence; Z79.899 Other long term (current) drug therapy; Z88.1 Allergy status to other antibiotic agents; Z88.8 Allergy status to other drugs, medicaments and biological substances
CPT/HCPCS: 36415; 80053; 84484; 85025; 93005; 99282

== ENCOUNTER 2019-05-09 12:50 | Emergency (ER) | payer MEDICARE ==
[2019-05-09 13:09] LABS: ABS Basophils 0.2 10^3/ul (0-0.2); ABS Eosinophils 0.2 10^3/ul (0-0.6); ABS Lymphocytes 0.9 10^3/ul (1.0-4.8); ABS Monocytes 0.8 10^3/ul (0-0.8); ABS Neutrophils 9.5 10^3/ul (1.5-7.7); Eosinophil % 1.9 %; Hematocrit 45 % (42-52); Hemoglobin 14.7 g/dL (14.0-18.0); Lymphocyte % 8.1 %; Mean Corpuscular HGB Conc 33 g/dL (31-36); Mean Corpuscular Hemoglobin 29 pg (27-31); Mean Corpuscular Volume 88 fL (80-94); Mean Platelet Volume 7.9 fL (7.4-10.4); Platelet Count 248 10^3/uL (150-450); Red Blood Count 5.08 10^6 /uL (4.18-5.48); Red Cell Distribution Width 16 % (10-15); White Blood Count 11.6 10^3/uL (3.5-10.8)
--- OUTSIDE RECORDS SUMMARY | 2019-05-09 13:18 | XMS REPORT | Continuity of Care Document ---
:1940 External Reference #:[id number] Author Name Milena Funk N.P. (transmitted by agent of provider Rosemary Dobson) Address [address], [place] [address] Care Team Providers Name Role Phone Keegan Lujan MD - Psychiatry Care Team Information Class A Regional Truck Driver Ruddy Ames M.D. - Rheumatology Care Team Information Class A Regional Truck Driver [phone] Luis Daniel Jacob MD - Ic [employer]er [employer] Care Team Information Class A Regional Truck Driver Iris Patel MD - Vascular Surgery Care Team Information Class A Regional Truck Driver Vika Pierce FNP-Cde - Family Care Team Information Class A Regional Truck Driver [phone] Ashley Hammond MD - Pulmonary Care Team Information Class A Regional Truck Driver Disease Saturnino Moreno MD - Urology Care Team Information Class A Regional Truck Driver [phone] Shae Charles M.D. - Family Medicine Care Team Information Class A Regional Truck Driver Problems Active Problems Provider Date Gout Germain [...] Granda M.D.,FACP Onset: 07/16/2013 Disorder of shoulder Ruddy Ames M.D. Onset: 04/04/2014 Multiple joint pain [...] a former Unknown smoker Smoking Status Reviewed: 05/03/19 Patient is a former smoker Exercise Type/Frequency [...] day Tablets with food Shingrix 0.5 milliliters 2unrachel Caban 07/17/2018 50mcg/0.5ML intramuscular now Fidel Granda,FACP [...] Mouth Every Day Capsules DR Spirometer incentive 1unrachel Hammond, 12/07/2017 Kit spirometer, use as MD instructed Metoprolol Succinate Take One Tablet By 90tabs I10 Jayashree Lee, 2016 ER Mouth Every Day M.D. 25mg Tablets ER 24HR Epipen 2-Jl use [...] Granda,FACP Oxygen 4 liters at bedtime Kaylah MehtaNima Tino, 2LP Via N/C and with exertion. N.P. Levsin/SL 1 every 4 hours as 120tabs Germian Caban 0.125mg needed (up to 3 Fidel Granda,FACP Tablets Sub daily) Duloxetine HCL 1 by mouth every day Unknown 60mg Caps DR Hawkins Dutasteride 1 by mouth every day Unknown 0.5mg Capsules Vascepa take two capsules by 120caps Thania 1gm Capsules mouth twice a day MD Rios Levsin up to 3 tab by mouth Unknown 0.125mg as needed Tablets Tylenol Extra 1-2 tabs by mouth Unknown Strength every 6 hours as 500mg needed Tablets History Medications Cortisporin-TC instill 5 drops 10ml B37.84 Mukesh Crisostomo 12/18/2018 - into affected Fidel Baugh 12/18/2018 3.3-3-10-0.5mg/ml ear 3 times per Suspension day for 7 days Acetic Acid 5 drops to r ear 15ml B37.84 Mukesh Crisostomo 12/18/2018 - 2% Solution three times a Fidel Baugh 02/03/2019 day for 1 week Immunizations CPT Code Status Date Vaccine Lot # [id number] Given 03/22/2019 Influenza Virus Vaccine, Quadrivalent, Split, Preservative Free [id number] Given 01/14/2018 Influenza Virus Vaccine, Quadrivalent, Split, [id number] Preservative Free 61005 Given 02/21/2017 Influenza Virus Vaccine, Quadrivalent, Split, [id number] Preservative Free 46030 Given 01/29/2016 Influenza Virus Vaccine, Quadrivalent, Split, [id number] Preservative Free [id number] Given 03/28/2015 Fluvirin Im 3Yrs And Older 53433 Given 03/08/2015 Influenza Virus Vaccine, Quadrivalent, Split, [id number] Preservative Free 70818 Given 09/15/2014 Pneumococcal Conjugate Vaccine 13 Valent For [id number] Intramuscular Use 92298 Given 03/14/2014 Flu Vaccine Split Virus Preservative Free For [id number] Indiv 3Yr Older 14499 Given 03/11/2013 Flu Vaccine Split Virus Preservative Free For [id number] Indiv 3Yr Older Q2037 Given 03/17/2012 Fluvirin Im 3Yrs And Older [id number] 74790 Given 11/14/2011 Pneumonia Vaccine [id number] 52233 Given 04/02/2011 Influenza Virus 3Yrs & Over [id number] 21333 Given 02/10/2010 Influenza Virus 3Yrs & Over 31384 Given 05/25/2009 Influenza Virus 3Yrs & Over [id number] 93616 Given 05/03/2009 Influenza Virus Vaccine, Pandemic Formulation [id number] 5P 20925 Given 05/03/2009 Administration Swine Flu Shot 00197 Given 05/13/2008 Influenza Virus 3Yrs & Over 35780 Given 05/13/2008 Influenza Virus 3Yrs & Over [id number] 42553 Given 12/18/2007 Zoster (Zostavax) 26732 Given 07/16/2006 Tetanus And Diptheria (Td) For Adult Use Preservative Free 12884 Given 03/26/2006 Pneumonia Vaccine Vital Signs Date Vital Result Comment 05/03/2019 3:44pm Height 71 inches 5'11" Weight 288.00 lb Heart Rate 84 /min BP Systolic Sitting 105 mmHg BP Diastolic Sitting 63 mmHg Body Temperature 97.6 F O2 % BldC Oximetry 91 % BMI (Body Mass Index) 40.2 kg/m2 03/12/2019 9:36am Height 71 inches 5'11" Weight 288.00 lb Heart Rate 74 /min BP Systolic Sitting 118 mmHg Lue lg cuff BP Diastolic Sitting 68 mmHg Lue lg cuff Body Temperature 95.4 F O2 % BldC Oximetry 91 % BMI (Body Mass Index) 40.2 kg/m2 Results Test Acquired Date Facility Test Result H/L Range Note CBC Auto 04/15/2019 [facility] White Blood 9.5 10^3/uL Normal 3.5-10.[address] [place] [address] [phone] Red Blood Count 5.02 10^6/uL Normal 4.18-5.48 Hemoglobin 15.2 g/dL Normal 14.0-18.0 Hematocrit 45 % Normal 42-52 Mean Corpuscular Volume 89 fL Normal 80-94 Mean Corpuscular Hemoglobin 30 pg Normal 27-31 Mean Corpuscular HGB Conc 34 g/dL Normal 31-36 Red Cell Distribution Width 15 % Normal 10-15 Platelet Count 217 10^3/uL Normal 150-450 Mean Platelet Volume 7.8 fL Normal 7.4-10.4 Abs Neutrophils 6.9 10^3/uL Normal 1.5-7.7 Abs Lymphocytes 1.4 10^3/uL Normal 1.0-4.8 Abs Monocytes 0.8 10^3/uL Normal 0-0.8 Abs Eosinophils 0.4 10^3/uL Normal 0-0.6 Abs Basophils 0.0 10^3/uL Normal 0-0.2 Abs Nucleated RBC 0.0 10^3/uL Granulocyte % 72.2 % Lymphocyte % 14.9 % Monocyte % 8.8 % Eosinophil % 3.8 % Basophil % 0.3 % Nucleated Red Blood Cells % 0.1 Comp Metabolic 04/15/2019 [facility] Sodium 140 mmol/L Normal 135-[address] [place] [address] [phone] Potassium 4.6 mmol/L Normal 3.5-5.0 Chloride 100 mmol/L Low 101-111 Co2 Carbon Dioxide 33 mmol/L High 22-32 Anion Gap 7 mmol/L Normal 2-11 Glucose 126 mg/dL High 70-100 Blood Urea Nitrogen 47 mg/dL High 6-24 Creatinine 1.50 mg/dL High 0.67-1.17 BUN/Creatinine Ratio 31.3 High 8-20 Calcium 9.9 mg/dL Normal 8.6-10.3 Total Protein 7.2 g/dL Normal 6.4-8.9 Albumin 4.0 g/dL Normal 3.2-5.2 Globulin 3.2 g/dL Normal 2-4 Albumin/Globulin Ratio 1.3 Normal 1-3 Total Bilirubin 0.40 mg/dL Normal 0.2-1.0 Alkaline Phosphatase 72 U/L Normal 34-104 Alt 13 U/L Normal 7-52 Ast 17 U/L Normal 13-39 Egfr Non- 45.5 >60 Egfr 55.1 >60 1 Laboratory test 04/15/2019 [facility] Troponin-I (TnI) 0.01 ng/ mL <0.03 [address] [place] [address] [phone] Urine Microalbumin 03/12/2019 [facility] Ur Microalbumin 48.2 mg /L Random [address] (mg/L) [place] [address] [phone] Urine Creatinine 81.45 mg/dL Urine Microalbumin/Creatinine 59.1 High <31 Urinalysis Profile 03/12/2019 [facility] Urine Color Yellow [address] [place] [address] [phone] Urine Appearance Clear Urine Specific [place] 1.015 Normal 1.010-1.030 Urine pH 5.0 Normal 5-9 Urine Urobilinogen Negative Negative Urine Ketones Negative Negative Urine Protein Negative Negative Urine Leukocytes Trace Abnormal Negative Urine Blood Negative Negative Urine Nitrite Negative Negative Urine Bilirubin Negative Negative Urine Glucose Negative Negative Urine White Blood Cell Trace(0-5/hpf) Absent Urine Red Blood Cell Absent Absent Urine Bacteria Absent Absent Urine Squamous Epithelial Cell Present Abnormal Absent Basic Metabolic 03/12/2019 [facility] Sodium 140 mmol/L Normal 135-[address] [place] [address] [phone] Potassium 4.4 mmol/L Normal 3.5-5.0 Chloride 102 mmol/L Normal 101-111 Co2 Carbon Dioxide 30 mmol/L Normal 22-32 Anion Gap 8 mmol/L Normal 2-11 Glucose 103 mg/dL High 70-100 Blood Urea Nitrogen 49 mg/dL High 6-24 Creatinine 1.37 mg/dL High 0.67-1.17 BUN/Creatinine Ratio 35.8 High 8-20 Calcium 9.8 mg/dL Normal 8.6-10.3 Egfr Non- 50.5 >60 Egfr 61.1 >60 3 Urine Culture And 03/12/2019 [facility] Urine Culture SEE RESULT [address] [place] [address] [phone] Laboratory test 03/12/2019 On Site Manager In House Hemoglobin A1c 6.4 5-7 finding Urine Culture And 01/22/2019 [facility] Urine Culture SEE RESULT [address] [place] [address] [phone] Teresa Igg AB Reflex 01/22/2019 [facility] SS-A/Ro Antibody <0.2 U [address] [place] [address] [phone] SS-B/La Antibody <0.2 U 7 Sm ([place]) IgG Antibody <0.2 U 8 DIRECTOR OF ARCHIVES Antibody, IgG 0.3 U 9 Scl-70 (Scleroderma) Antibody <0.2 U 10 Rebecca-1 Antibody <0.2 U 11 Laboratory test 01/22/2019 [facility] Total Protein 18 mg/dL finding [address] [place] [place] [address] [phone] Immunoglobulin A (Iga) 204 mg/dL 61 - 356 12 Urine Protein Elctrophoresis 01/22/2019 [facility] Albumin 75 % 13 (RDM) [address] [place] [address] [phone] Alpha-1 Globulin 4 % 14 Alpha-2 Globulin 6 % 15 Beta Globulin 8 % 16 Gamma Globulin 8 % 17 Albumin/Globulin Ratio 2.99 % Impression See Comment 18 Total Protein(Pep) Urine 17 mg/dL 19 Laboratory test 01/22/2019 [facility] Urine Creatinine 46.80 mg/ dL finding [address] [place] [address] [phone] Urinalysis 01/22/2019 [facility] Urine Color Yellow Profile [address] [place] [address] [phone] Urine Appearance Clear Urine Specific [place] 1.016 Normal 1.010-1.030 Urine pH 6.0 Normal [...] Urine Collection Time 24 hr Urine [address] [place] [address] [phone] Urine Total Volume 3150 mL Urine Total Protein/24HR 220 mg/24Hr High 0-165 Protein 01/22/2019 [facility] Total 6.4 g/dL 6.3 - Electrophoresis [address] Protein(Pep) 7.9 [place] [address] [phone] Albumin 3.1 g/dL Abnormal 3.4-4.7 Alpha-1 Globulin 0.3 g/dL 0.1-0.3 Alpha-2 Globulin 1.2 g/dL Abnormal 0.6-1.0 Beta Globulin 0.9 g/dL 0.7-1.2 Gamma Globulin 0.9 g/dL 0.6-1.6 Albumin/Globulin Ratio 0.93 Impression See Comment 20 [place]/Lambda Free 01/22/2019 [facility] [place] Free 5.71 mg/dL Abnormal 21 Light Chains Ser [address] [place] [address] [phone] Lambda Free Light Chain 2.65 mg/dL Abnormal 22 [place]/Lambda Free Light Chain 2.15 Abnormal 23 Creatinine Clearance 01/22/2019 [facility] Urine Collection [address] [place] [address] [phone] Urine Total Volume 3150 mL Creatinine, Serum 1.26 mg/dL High 0.51-0.95 Creatinine Clearance 81 mL/min Low 97-137 Comp Metabolic 01/22/2019 [facility] Sodium 137 mmol/L Normal 135-[address] [place] [address] [phone] Potassium 4.4 mmol/L Normal 3.5-5.0 Chloride 100 [...] Egfr Non- 57.2 >60 Egfr 69.2 >60 24 Hepatitis C Antibody 01/22/2019 [facility] HCV Index 0.02 s/c [address] [place] [address] [phone] Hepatitis C Antibody Negative Negative Laboratory test 01/22/2019 [facility] Creatine 48 U/L Normal 10-223 finding [facility] Kinase(CK) [place] [address] [phone] Glomerular Basement Membrane <0.2 U 25 Hepatitis B Surface Ag Nonreactive Nonreactive CBC Auto 01/22/2019 [facility] White Blood 9.0 10^3/uL Normal 3.5-10.8 Diff [address] [facility] [place] [address] [phone] Red Blood Count 5.16 10^6/uL Normal 4.18-5.48 [...] % Nucleated Red Blood Cells % 0.0 Anca Panel For 01/22/2019 [facility] Myeloperoxidase AB < 0.2 U 26 Vasculitis [address] [place] [address] [phone] Proteinase 3 AB < 0.2 U 27 Laboratory test 01/22/2019 [facility] Uric Acid 8.4 mg/dL High 4.4-7.6 finding [address] [place] [address] [phone] Laboratory test 01/19/2019 [facility] Uric Acid 8.5 mg/dL High 4.4-7.6 finding [address] [place] [address] [phone] 1 Because ethnic data is not always readily [...] 15-29 5 Kidney failure <15 (or dialysis) 2 Troponin-I testing on Plasma Separator Tubes (PST) has a known false positive rate of 0.20-0.40%. All positive troponins reflex immediately to secondary confirmatory testing. Using the SeahorseI 800 Access Immunoassay systems, the 99th percentile upper reference limit was demonstrated to be < 0.03 ng/mL. 3 Because ethnic data is not always readily [...] 15-29 5 Kidney failure <15 (or dialysis) 4 SEE RESULT BELOW Name: LYNN WANG : [address]: Thania Nation MD Acct: [id number] Unit: [id number] AGE: 78 Location: [facility] Re03/12/19 SEX: M Status: REG REF SPEC: [id number] KHUSHI: 03/12/[address]: Thania Nation MD REQ: [id number] RECD: 03/12/19 STATUS:COMP _ SOURCE: URINE SPDESC: ORDERED: Urine Culture Procedure Result Reported Site Urine Culture Final 03/15/19- 0833 ML Organism 1 STAPHYLOCOCCUS EPIDERMIDIS [place] Count 50-75,000 (Many) CFU/ML 1. STAPHYLOCOCCUS EPIDERMIDIS M.I.C. RX --------- ------ Penicillin >=0.5 R Gentamicin <=0.5 S Linezolid 2 S Nitrofurantoin <=16 S Oxacillin 0.5 R * Quinupristin/Dalfopristin <=0.25 S Rifampin <=0.5 S Tetracycline 2 S Doxycycline - Deduced S * Minocycline - Deduced S Tigecycline <=0.12 S Trimethoprim/Sulfamethoxazole >=320 R Vancomycin <=0.5 S Imipenem-Deduced R * Ampicillin/Sulbactam-Deduced R Cefazolin-Deduced R CONTINUED ON NEXT PAGE DEPARTMENT OF PATHOLOGY, [facility] [employer] [place] [address] Phoenix Del Castillo M.D. Director [facility] # [id number] Specimen: [id number] Collected: 03/12/19 Received: 03/12/19 (Continued) Procedure Result Reported Site Urine Culture Final (continued) * These antibiotics are not available in the [facility] Formulary Contact the Microbiology Department for any additional antibiotic reporting. * ML - Main Lab . END OF REPORT DEPARTMENT OF PATHOLOGY, [facility] [employer] [place], [place] [address] Phoenix Del Castillo M.D. Director [facility] # [id number] 5 SEE RESULT BELOW Name: LYNN WANG : [address]: Pat Beauchamp MD Acct: [id number] Unit: [id number] AGE: 78 Location: LAB Re01/22/19 SEX: M Status: REG REF SPEC: [id number] KHUSHI: 01/22/19-[address]: Pat Beauchamp MD REQ: [id number] RECD: 01/22/19-1301 STATUS: VERENA HAY DR: Shae Moreno MD _ SOURCE: URINE SPDESC: ORDERED: Urine Culture Procedure Result Reported Site Urine Culture Final 01/24/19- 930 ML No growth of clinically significant organisms * - [facility] . END OF REPORT DEPARTMENT OF PATHOLOGY, [address] [place] [address] Phoenix Del Castillo M.D. Director [facility] # [id number] 6 REFERENCE VALUE <1.0 (Negative) 7 REFERENCE VALUE <1.0 (Negative) 8 REFERENCE VALUE <1.0 (Negative) 9 REFERENCE VALUE <1.0 (Negative) 10 REFERENCE VALUE <1.0 (Negative) 11 REFERENCE VALUE <1.0 (Negative) Test Performed by: [facility] [place] [address] Human Intelligence: Kishan Hernandez M.D. Ph.D.; CLIA# [id number] 12 Test Performed by: [facility] [place] [address] Human Intelligence: Kishan Hernandez M.D. Ph.D.; CLIA# [id number] 13 13 mg/dL 14 1 mg/dL 15 1 mg/dL 16 1 mg/dL 17 1 mg/dL 18 RESULT: All fractions present, no apparent M-spike. 19 ADDITIONAL INFORMATION On 10/22/2016 the total protein assay method changed resulting in approximately a 15% increase in protein values. Test Performed by: [facility] [employer] [facility] [place] [address] Human Intelligence: Kishan Hernandez M.D. Ph.D.; CLIA# [id number] Test Performed by: [place] [address] Human Intelligence: Kishan Hernandez M.D. Ph.D.; CLIA# [id number] 20 RESULT: No apparent monoclonal protein on serum electrophoresis. Test Performed by: [facility] [place] [address] Human Intelligence: Kishan Hernandez M.D. Ph.D.; CLIA# [id number] 21 REFERENCE VALUE 0.3300-1.94 22 REFERENCE VALUE 0.5700-2.63 23 Elevated free light chain ratios between 1.66 and 3.00 may occur due to polyclonal hypergammaglobulinemia or impaired renal clearance. An isolated increased free light chain ratio in this range should be interpreted with caution, and clinical correlation is recommended. REFERENCE VALUE 0.2600-1.65 Test Performed by: [place] [address] Human Intelligence: Kishan Hernandez M.D. Ph.D.; CLIA# [id number] 24 Because ethnic data is not always readily [...] 15-29 5 Kidney failure <15 (or dialysis) 25 REFERENCE VALUE <1.0 (Negative) Test Performed by: [place] [address] Human Intelligence: Kishan Hernandez M.D. Ph.D.; CLIA# [id number] 26 REFERENCE VALUE <0.4 (Negative) 27 REFERENCE VALUE <0.4 (Negative) Test Performed by: [place] [address] Human Intelligence: Kishan Hernandez M.D. Ph.D.; CLIA# [id number] Procedures Date Code Description Status 04/07/2019 904409706 Diabetic Retinal Eye Exam Completed 04/06/2018 326803417 Diabetic Retinal Eye Exam Completed 06/19/2017 734387380 Diabetic Retinal Eye Exam Completed 02/20/2017 70615339 Colonoscopy Completed 05/23/2016 583705254 Diabetic Retinal Eye Exam Completed 05/18/2015 700280322 Diabetic Retinal Eye Exam Completed 04/09/2013 305711654 Diabetic Retinal Eye Exam Completed 12/19/2011 60639536 Colonoscopy Completed 12/23/2008 88659809 Colonoscopy Completed Medical Devices Description No Information Available Encounters Type Date Location Provider Dx Diagnosis Office Visit 03/12/2019 [facility] Internal Thania Nation, 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 J44.9 Chronic obstructive pulmonary disease, unspecified N18.9 Chronic kidney disease, unspecified E78.2 Mixed hyperlipidemia K21.0 Gastro-esophageal reflux disease with esophagitis Office Visit 02/01/2019 9:30a [facility] Nephrology Pat 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, adult type N18.9 Chronic kidney disease, unspecified Office Visit 01/19/2019 1:40p [facility] Internal Shae Charles MD H92.01 Otalgia , right Medicine - [facility] ear 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 [facility] Office Visit 12/02/2018 1:40p [facility] Internal Shae Charles, E11.9 Type 2 diabetes Medicine - mellitus without [facility] complications Assessments Date Code Description Provider 05/03/2019 Z86.79 Personal history of other diseases of the Milena Funk, N.P. circulatory system 05/03/2019 R60.0 Localized edema Milena Funk, N.P. 05/03/2019 R06.02 Shortness of breath Milena Funk, N.P. 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 at [facility] at [facility]1908/31/2019 10:00 am - Shae Charles MD at [facility] Internal Medicine - [facility]06/04/2019 11:30 am - Barbie Thakur MD at [facility] Nmukmduzea63/06/ 2020 - Milena Funk N.P.Z86.79 Personal history of other diseases of the circulatory systemComments:For your history of vascular disease I want you to follow up with Dr Patel.R60.0 Localized edemaNew Xrays:Venous Doppler Lower Left Ext, Ordered: 05/03/19Venous Doppler Lower Right Ext, Ordered: 05/03/19Comments: To evaluate the swelling in your legs I have ordered an ultrasound to screen for blood clots. I willcontact you with your results. I have ordered blood work to check your metabolic panel and BNP to rule out cardiac issues. I suspect your edema is related to your traveling. Please continue to follow alow sodium diet and elevate your feet.R06.02 Shortness of breath Functional Status Description No Information Available Mental Status Description No Information Available Referrals Refer to Reason for Referral Status Appt Date [facility] Closed 12/10/[address] [place] [address] [address] [place] [address] [phone]
--- OUTSIDE RECORDS SUMMARY | 2019-05-09 13:18 | XMS REPORT | Continuity of Care Document ---
:1940 External Reference #:[id number] Author Name Leah Valderrama M.D. (transmitted by agent of provider Kanika Ruby) Address [address] [place] [address] [place] [address] Care Team Providers Name Role Phone Keegan Lujan MD - Psychiatry Care Team Information Clinical Psychologist Private Practice [phone] Ruddy Ames M.D. - Rheumatology Care Team Information Clinical Psychologist Private Practice [phone] Luis Daniel Jacob MD - Finishing Range Supervisor Care Team Information Clinical Psychologist Private Practice Iris Patel MD - Vascular Surgery Care Team Information Clinical Psychologist Private Practice [phone] Vika Pierce FNP-Cde - Family Care Team Information Clinical Psychologist Private Practice [phone] Ashley Hammond MD - Pulmonary Care Team Information Clinical Psychologist Private Practice Disease Saturnino Moreno MD - Urology Care Team Information Clinical Psychologist Private Practice [phone] Shae Charles M.D. - Family Medicine Care Team Information Clinical Psychologist Private Practice [phone] Problems Active Problems Provider Date Gout Germain [...] a former Unknown smoker Smoking Status Reviewed: 05/05/19 Patient is a former smoker Exercise Type/Frequency [...] CPT Code Status Date Vaccine Lot # [id number] Given 03/22/2019 Influenza Virus Vaccine, Quadrivalent, Split, Preservative Free 53143 Given 01/14/2018 Influenza Virus Vaccine, Quadrivalent, Split, [id number] Preservative Free 83401 Given 02/21/2017 Influenza Virus Vaccine, Quadrivalent, Split, [id number] Preservative Free 16164 Given 01/29/2016 Influenza Virus Vaccine, Quadrivalent, Split, [id number] Preservative Free [id number] Given 03/28/2015 Fluvirin Im 3Yrs And Older 40204 Given 03/08/2015 Influenza Virus Vaccine, Quadrivalent, Split, [id number] Preservative Free 70773 Given 09/15/2014 Pneumococcal Conjugate Vaccine 13 Valent For [id number] Intramuscular Use 34973 Given 03/14/2014 Flu Vaccine Split Virus Preservative Free For [id number] Indiv 3Yr Older 21239 Given 03/11/2013 Flu Vaccine Split Virus Preservative Free For [id number] Indiv 3Yr Older Q2037 Given 03/17/2012 Fluvirin Im 3Yrs And Older [id number] 14970 Given 11/14/2011 Pneumonia Vaccine [id number] 79753 Given 04/02/2011 Influenza Virus 3Yrs & Over [id number] 28000 Given 02/10/2010 Influenza Virus 3Yrs & Over 08504 Given 05/25/2009 Influenza Virus 3Yrs & Over [id number] 11921 Given 05/03/2009 Influenza Virus Vaccine, Pandemic Formulation [id number] [id number] 23605 Given 05/03/2009 Administration Swine Flu Shot 72832 Given 05/13/2008 Influenza Virus 3Yrs & Over 48239 Given 05/13/2008 Influenza Virus 3Yrs & Over [id number] 28951 Given 12/18/2007 Zoster (Zostavax) 23624 Given 07/16/2006 Tetanus And Diptheria (Td) For Adult Use Preservative Free 69345 Given 03/26/2006 Pneumonia Vaccine Vital Signs Date Vital Result Comment 05/05/2019 8:24am Height 71 inches 5'11" Weight 276.00 lb Heart Rate 80 /min BP Systolic Sitting 138 mmHg BP Diastolic Sitting 84 mmHg Respiratory Rate 18 /min Pain Level 7 BMI (Body Mass Index) 38.5 kg/m2 05/03/2019 3:44pm Height 71 inches 5'11" Weight 288.00 lb Heart Rate 84 /min BP Systolic Sitting 105 mmHg BP Diastolic Sitting 63 mmHg Body Temperature 97.6 F O2 % BldC Oximetry 91 % BMI (Body Mass Index) 40.2 kg/m2 Results Test Acquired Date Facility Test Result H/L Range Note CBC Auto 04/15/2019 [facility] White Blood 9.5 10^3/uL Normal 3.5-10.[address] [place] [address] [phone] Red Blood Count 5.02 10^6/uL Normal 4.18-5.48 [...] Blood Cells % 0.1 Comp Metabolic 04/15/2019 [facility] Sodium 140 mmol/L Normal 135-[address] [place] [address] [phone] Potassium 4.6 mmol/L Normal 3.5-5.0 Chloride 100 [...] Egfr 55.1 >60 1 Laboratory test 04/15/2019 [facility] Troponin-I (TnI) 0.01 ng/ mL <0.03 [address] [place] [address] [phone] Urine Microalbumin 03/12/2019 [facility] Ur Microalbumin 48.2 mg /L Random [address] (mg/L) [place], [place] [id number] [phone] Urine Creatinine 81.45 mg/dL Urine Microalbumin/Creatinine 59.1 High <31 Urinalysis Profile 03/12/2019 [facility] Urine Color Yellow [address] [place] [address] [phone] Urine Appearance Clear Urine Specific [place] 1.015 Normal 1.010-1.030 Urine pH 5.0 Normal [...] Cell Present Abnormal Absent Basic Metabolic 03/12/2019 [facility] Sodium 140 mmol/L Normal 135-[address] [place] [address] [phone] Potassium 4.4 mmol/L Normal 3.5-5.0 Chloride 102 mmol/L Normal 101-111 Co2 Carbon Dioxide 30 mmol/L Normal 22-32 Anion Gap 8 mmol/L Normal 2-11 Glucose 103 mg/dL High 70-100 Blood Urea Nitrogen 49 mg/dL High 6-24 Creatinine 1.37 mg/dL High 0.67-1.17 BUN/Creatinine Ratio 35.8 High 8-20 Calcium 9.8 mg/dL Normal 8.6-10.3 Egfr Non- 50.5 >60 Egfr 61.1 >60 3 Urine Culture And 03/12/2019 [facility] Urine Culture SEE RESULT [address] [place] [address] [phone] Laboratory test 03/12/2019 [facility] Hemoglobin A1c 6.4 5-7 finding Urine Culture And 01/22/2019 [facility] Urine Culture SEE RESULT [address] [place] [address] [phone] Teresa Igg AB Reflex 01/22/2019 [facility] SS-A/Ro Antibody <0.2 U [address] [place] [address] [phone] SS-B/La Antibody <0.2 U 7 Sm ([place]) IgG Antibody <0.2 U 8 AGRICULTURE RESEARCH DIRECTOR Antibody, IgG 0.3 U 9 Scl-70 (Scleroderma) Antibody <0.2 U 10 Rebecca-1 Antibody <0.2 U 11 Laboratory test 01/22/2019 [facility] Total Protein 18 mg/dL finding [address] [place] [address] [phone] Immunoglobulin A (Iga) 204 mg/dL 61 - 356 12 Urine Protein Elctrophoresis 01/22/2019 [facility] Albumin 75 % 13 (RDM) [address] [place] [address] [phone] Alpha-1 Globulin 4 % 14 Alpha-2 Globulin 6 % 15 Beta Globulin 8 % 16 Gamma Globulin 8 % 17 Albumin/Globulin Ratio 2.99 % Impression See Comment 18 Total Protein(Pep) Urine 17 mg/dL 19 Laboratory test 01/22/2019 [facility] Urine Creatinine 46.80 mg/ dL finding [address] [place] [address] [phone] Urinalysis 01/22/2019 [facility] Urine Color Yellow Profile [address] [place] [address] [phone] Urine Appearance Clear Urine Specific [place] 1.016 Normal 1.010-1.030 Urine pH 6.0 Normal 5-9 Urine Urobilinogen Negative Negative Urine Ketones Negative Negative Urine Protein Negative Negative Urine Leukocytes Trace Abnormal Negative Urine Blood 1+ Abnormal Negative Urine Nitrite Negative Negative Urine Bilirubin Negative Negative Urine Glucose Negative Negative Urine White Blood Cell 1+(6-10/hpf) Abnormal Absent Urine Red Blood Cell Trace(0-2/hpf) Absent Urine Bacteria Absent Absent Total Protein 24HR 01/22/2019 [facility] Urine Collection Time [address] [place] [address] [phone] Urine Total Volume 3150 mL Urine Total Protein/24HR 220 mg/24Hr High 0-165 Protein 01/22/2019 [facility] Total 6.4 g/dL 6.3 - Electrophoresis DRIVE Protein(Pep) 7.9 [place] [address] [phone] Albumin 3.1 g/dL Abnormal 3.4-4.7 Alpha-1 Globulin 0.3 g/dL 0.1-0.3 Alpha-2 Globulin 1.2 g/dL Abnormal 0.6-1.0 Beta Globulin 0.9 g/dL 0.7-1.2 Gamma Globulin 0.9 g/dL 0.6-1.6 Albumin/Globulin Ratio 0.93 Impression See Comment 20 [place]/Lambda Free 01/22/2019 [facility] [place] Free 5.71 mg/dL Abnormal 21 Light Chains Ser [address] [place] [address] [phone] Lambda Free Light Chain 2.65 mg/dL Abnormal 22 [place]/Lambda Free Light Chain 2.15 Abnormal 23 Creatinine Clearance 01/22/2019 [facility] Urine Collection [address] [place] [address] [phone] Urine Total Volume 3150 mL Creatinine, Serum 1.26 mg/dL High 0.51-0.95 Creatinine Clearance 81 mL/min Low 97-137 Comp Metabolic 01/22/2019 [facility] Sodium 137 mmol/L Normal 135-[address] [place] [address] [phone] Potassium 4.4 mmol/L Normal 3.5-5.0 Chloride 100 [...] 69.2 >60 24 Hepatitis C Antibody 01/22/2019 [facility] HCV Index 0.02 s/c [address] [place] [address] [phone] Hepatitis C Antibody Negative Negative Laboratory test 01/22/2019 [facility] Creatine 48 U/L Normal 10-[address] Kinase(CK) [place] [address] [phone] Glomerular Basement Membrane <0.2 U 25 Hepatitis B Surface Ag Nonreactive Nonreactive CBC Auto 01/22/2019 [facility] White Blood 9.0 10^3/uL Normal 3.5-10.[address] [place] [place] [address] [phone] Red Blood Count 5.16 10^6/uL Normal 4.18-5.48 [...] Cells % 0.0 Anca Panel For 01/22/2019 [facility] Myeloperoxidase AB < 0.2 U [address] [place] [address] [phone] Proteinase 3 AB < 0.2 U 27 Laboratory test 01/22/2019 [facility] Uric Acid 8.4 mg/dL High 4.4-7.[address] [place] [address] [phone] Laboratory test 01/19/2019 [facility] Uric Acid 8.5 mg/dL High 4.4-7.[address] [place] [address] [phone] 1 Because ethnic data is not always [...] immediately to secondary confirmatory testing. Using the PlanGridI 800 Access Immunoassay systems, the 99th percentile [...] 4 SEE RESULT BELOW Name: LYNN WANG [place] : [address]: Thania Nation MD Acct: [id number] Unit: [id number] AGE: 78 Location: [facility] Re03/12/19 SEX: M Status: REG REF SPEC: [id number] KHUSHI: 03/12/[address]: Thania Nation MD REQ: [id number] RECD: 03/12/19 STATUS:COMP _ SOURCE: URINE SPDESC: ORDERED: Urine Culture Procedure Result Reported Site Urine Culture Final 03/15/19- 0833 ML Organism 1 STAPHYLOCOCCUS EPIDERMIDIS [place] Count 50-75,000 (Many) CFU/ML 1. STAPHYLOCOCCUS EPIDERMIDIS [...] CONTINUED ON NEXT PAGE DEPARTMENT OF PATHOLOGY, [facility] [employer] [place] [address] Phoenix Del Castillo M.D. Director KARINA # [id number] Specimen: [id number] Collected: 03/12/19 Received: 03/12/19 (Continued) Procedure Result Reported Site Urine Culture Final (continued) * These antibiotics are not available in the [facility] Formulary Contact the Microbiology Department for any additional antibiotic reporting. * ML - Main Lab . END OF REPORT DEPARTMENT OF PATHOLOGY, [facility] [employer] [place], [place] [address] Phoenix Del Castillo M.D. Director [facility] # [id number] 5 SEE RESULT BELOW Name: LYNN WANG : [address]: Pat Beauchamp MD Acct: [id number] Unit: [id number] AGE: 78 Location: LAB Re01/22/19 SEX: M Status: REG REF SPEC: [id number] KHUSHI: 01/22/19-[address]: Pat Beauchamp MD REQ: [id number] RECD: 01/22/19-1301 STATUS: VERENA HAY DR: Shae Moreno MD _ SOURCE: URINE SPDESC: ORDERED: Urine Culture Procedure Result Reported Site Urine Culture Final 01/24/19- 0931 ML No growth of clinically significant organisms * - [facility] . END OF REPORT DEPARTMENT OF PATHOLOGY, [address] [place] [address] Phoenix Del Castillo M.D. Director HA # [id number] 6 REFERENCE VALUE <1.0 (Negative) 7 REFERENCE VALUE <1.0 (Negative) 8 REFERENCE VALUE <1.0 (Negative) 9 REFERENCE VALUE <1.0 (Negative) 10 REFERENCE VALUE <1.0 (Negative) 11 REFERENCE VALUE <1.0 (Negative) Test Performed by: [facility] [place] [place] [address] High Density Press Operator: Kishan Hernandez M.D. Ph.D.; CLIA# [id number] 12 Test Performed by: [facility] [place] [place] [address] High Density Press Operator: Kishan Hernandez M.D. Ph.D.; CLIA# [id number] 13 13 mg/dL 14 1 mg/dL 15 1 mg/dL 16 1 mg/dL 17 1 mg/dL 18 RESULT: All fractions present, no apparent M-spike. 19 ADDITIONAL INFORMATION On 10/22/2016 the total protein assay method changed resulting in approximately a 15% increase in protein values. Test Performed by: [facility] - [address] [place] [address] High Density Press Operator: Kishan Hernandez M.D. Ph.D.; CLIA# [id number] Test Performed by: [place] [address] High Density Press Operator: Kishan Hernandez M.D. Ph.D.; CLIA# [id number] 20 RESULT: No apparent monoclonal protein on serum electrophoresis. Test Performed by: [facility] - [facility] [place] [address] High Density Press Operator: Kishan Hernandez M.D. Ph.D.; CLIA# [id number] 21 REFERENCE VALUE 0.3300-1.94 22 REFERENCE VALUE 0.5700-2.63 23 Elevated free light chain ratios between 1.66 and 3.00 may occur due to polyclonal hypergammaglobulinemia or impaired renal clearance. An isolated increased free light chain ratio in this range should be interpreted with caution, and clinical correlation is recommended. REFERENCE VALUE 0.2600-1.65 Test Performed by: [place] [address] [place] [address] High Density Press Operator: Kishan Hernandez M.D. Ph.D.; CLIA# [id number] 24 Because ethnic data is not always [...] REFERENCE VALUE <1.0 (Negative) Test Performed by: [place] [address] High Density Press Operator: Kishan Hernandez M.D. Ph.D.; CLIA# [id number] 26 REFERENCE VALUE <0.4 (Negative) 27 REFERENCE VALUE <0.4 (Negative) Test Performed by: [place] [address] High Density Press Operator: Kishan Hernandez M.D. Ph.D.; CLIA# [id number] Procedures Date Code Description Status 04/07/2019 651378587 Diabetic Retinal Eye Exam Completed 04/06/2018 765758881 Diabetic Retinal Eye Exam Completed 06/19/2017 447342446 Diabetic Retinal Eye Exam Completed 02/20/2017 63313325 Colonoscopy Completed 05/23/2016 823034820 Diabetic Retinal Eye Exam Completed 05/18/2015 284570511 Diabetic Retinal Eye Exam Completed 04/09/2013 [id number] Diabetic Retinal Eye Exam Completed 12/19/2011 [id number] Colonoscopy Completed 12/23/2008 [id number] Colonoscopy Completed Medical Devices Description No Information Available Encounters Type Date Location Provider Dx Diagnosis Office Visit 03/12/2019 [facility] Internal Thania Nation, 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 J44.9 Chronic obstructive pulmonary disease, unspecified N18.9 Chronic kidney disease, unspecified E78.2 Mixed hyperlipidemia K21.0 Gastro-esophageal reflux disease with esophagitis Office Visit 02/01/2019 9:30a [facility] Nephrology Pat 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, adult type N18.9 Chronic kidney disease, unspecified Office Visit 01/19/2019 1:40p [facility] Internal Shae Charles MD H92.01 Otalgia , right Medicine - [facility] ear E79.0 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 [facility] Office Visit 12/02/2018 1:40p [facility] Internal Shae Charles, E11.9 Type 2 diabetes Medicine - mellitus without [facility] complications Assessments Date Code Description Provider 05/05/2019 M75.102 Unspecified rotator cuff tear or rupture of Leah Valderrama M.D. left shoulder, not specified as traumatic 05/03/2019 Z86.79 Personal history of other diseases of the Milena Varn, N.P. circulatory system 05/03/2019 R60.0 Localized edema Mliena Funk, N.P. 05/03/2019 R06.02 Shortness of breath [...] Charles MD complications Plan of Treatment Future Appointment(s):08/31/2019 10:00 am - Shae Charles MD at [facility] Internal Medicine - [facility]06/04/2019 11:30 am - Barbie Thakur MD at [facility] Uxhvgacusd76/08/ 2020 - Leah Valderrama M.D.M75.102 Unspecified rotator cuff tear or rupture of left shoulder, not specified as traumaticNew Therapy:Physical TherapyFollow up: Follow up: s As needed Functional Status Description No Information Available Mental Status Description No Information Available Referrals Refer to Reason for Referral Status Appt Date [facility] 12/10/[address] [place] [address] [address] [place] [address] [phone]
[2019-05-09 13:26] LABS: Albumin/Globulin Ratio 1.2 (1-3); BUN/Creatinine Ratio 31.9 (8-20); Calcium 9.7 mg/dL (8.6-10.3); EGFR Non-African American 48.7 (>60); Globulin 3.3 g/dL (2-4); INR 1.48 (0.82-1.09); Potassium 4.1 mmol/L (3.5-5.0); Total Bilirubin 0.5 mg/dL (0.2-1.0); Total Protein 7.3 g/dL (6.4-8.9)
[2019-05-09 13:28] LABS: Troponin I 0.01 ng/mL (<0.03)
--- NOTE | 2019-05-09 13:32 | ED ---
HPI Chest Pain - HPI Summary HPI Summary: Pt is a 79 y/o M presenting to the ED with a chief complaint of chest pain initially onset this morning. He states hes had similar pain before, but it was present more so in his throat. This morning, he was cleaning up around the house, and he began to feel the pain in his upper sternal region. He also notes he has a sore throat this morning, and hes been extremely fatigued since . He normally sleeps with oxygen but does not need it during the day, however he is feeling short of breath. The pain does not radiate to his back or arms. He is currently on Eliquis for a clot in his R leg, and is in the process of losing weight. He denies hx of stents, VA, or CHF. Also denies abd pain or calf pain. - History of Current Complaint Chief Complaint: EDChestPainROMI Time Seen by Provider: 05/09/19 13:04 Hx Obtained From: Patient Onset/Duration: Started Hours Ago, Still Present Timing: Constant, Lasting Hours Initial Severity: Mild Current Severity: Mild Pain Intensity: 2 Pain Scale Used: 0-10 Numeric Chest Pain Location: Upper Sternal Chest Pain Radiates: No Character: Sharp/Stabbing Aggravating Factor(s): Nothing Alleviating Factor(s): Nothing Associated Signs and Symptoms: Positive: Chest Pain, Shortness of Breath. Negative: Abdominal Pain, Calf Pain/Swelling - Additional Pertinent History Primary Care Physician: [email or web address] - Allergy/Home Medications Allergies/Adverse Reactions: Allergies Allergy/AdvReac Type Severity Reaction Status Date / Time bacitracin Allergy Rash Verified 05/09/19 13:07 [From Neosporin ([id number])] ibuprofen Allergy excessive Verified 05/09/19 13:07 thirst levofloxacin [From Levaquin] Allergy tendonitis Verified 05/09/19 13:07 neomycin Allergy Rash Verified 05/09/19 13:07 [From Neosporin ([id number])] polymyxin B Allergy Rash Verified 05/09/19 13:07 [From Neosporin ([id number])] yellow jacket Allergy Severe Anaphylatic Uncoded 05/09/19 13:07 Shock PMH/Surg Hx/FS Hx/Imm Hx Previously Healthy: Yes Endocrine/Hematology History: Reports: Hx Anticoagulant Therapy - eliquis, Hx Diabetes - TYPE 2 Denies: Hx Systemic Lupus Erythematosus Cardiovascular History: Reports: Hx Aneurysm - repaired AAA, repaired x 2 , Hx Hypercholesterolemia, Hx Hypertension - ON DAILY MEDS, Other Cardiovascular Problems/Disorders Denies: Hx Congestive Heart Failure, Hx Pacemaker/ICD Respiratory History: Reports: Hx Asthma - ?, Hx Chronic Obstructive Pulmonary Disease (COPD), Hx Sleep Apnea, Other Respiratory Problems/Disorders - USES OXYGEN AT 4 L WITH CPAP AT NIGHT GI History: Reports: Hx Gastroesophageal Reflux Disease - AFFECTS VOCAL CORDS, Other GI Disorders - hx AAA History: Reports: Hx Benign Prostatic Hyperplasia, Other Problems/ Disorders - enlarged prostate Denies: Hx Dialysis, Hx Renal Disease Musculoskeletal History: Reports: Hx Tendonitis - LEFT SHOULDER AND ARM Denies: Hx Rheumatoid Arthritis Sensory History: Reports: Hx Cataracts - BILATERAL, Hx Contacts or Glasses - GLASSES Denies: Hx Hearing Aid Opthamlomology History: Reports: Hx Cataracts - BILATERAL, Hx Contacts or Glasses - GLASSES Neurological History: Reports: Hx Headaches, Hx Migraine - HX OF MIGRAINES IN THE PAST (NONE SINCE USING CPAP Psychiatric History: Reports: Hx Depression Denies: Hx Panic Disorder - Cancer History Hx Chemotherapy: No - Surgical History Surgery Procedure, Year, and Place: 2004 aaa. hernia repair- WITH MESH. 1987 polyps larynx benign. 2007 RIGHT TOTAL KN[place] [facility] [place] 2014- bilat EYE CATARACT [facility] [place]. 2019 AAA repair, Dr. Patel, [facility]. 2013 POPITEAL ARTERY AN. REPAIR [facility]. Hx Anesthesia Reactions: No Infectious Disease History: No Infectious Disease History: Denies: Traveled Outside the [place] in Last 30 Days - Family History Known Family History: Positive: Cardiac Disease, Other - aortic aneurysm. - Social History Alcohol Use: None Hx Substance Use: No Substance Use Type: Reports: None Hx Tobacco Use: Yes - quit 1994 Smoking Status (MU): Former Smoker Type: Cigarettes Amount Used/How Often: 2 PPD X 20 YEARS Have You Smoked in the Last Year: No Review of Systems Positive: Fatigue Positive: Sore Throat Positive: Chest Pain Positive: Shortness Of Breath Negative: Abdominal Pain Negative: Myalgia - calf pain All Other Systems Reviewed And Are Negative: Yes Physical Exam - Summary Physical Exam Summary: Constitutional: Well-developed, Well-nourished, Alert. (-) Distressed Skin: Warm, Dry HENT: Normocephalic; Atraumatic Eyes: Conjunctiva normal Neck: Musculoskeletal ROM normal neck. (-) JVD, (-) Stridor, (-) Tracheal deviation Cardio: Rhythm regular, rate normal, Heart sounds normal; Intact distal pulses; The pedal pulses are 2+ and symmetric. Radial pulses are 2+ and symmetric. (-) Murmur Pulmonary/Chest wall: Effort normal. Breathing comfortably, no acute distress. ( -) Respiratory distress, (-) Wheezes, (-) Rales, (-) Rhonchi. Abd: Soft, (-) tenderness, (-) Distension, (-) Guarding, (-) Rebound Musculoskeletal: (-) Edema Lymph: (-) Cervical adenopathy Neuro: Alert, Oriented x3 Psych: Mood and affect Normal Triage Information Reviewed: Yes Vital Signs On Initial Exam: Initial Vitals Temp Pulse Resp BP Pulse Ox 97.9 F 114 22 144/86 88 05/09/19 12:57 05/09/19 12:57 05/09/19 12:57 05/09/19 12:57 05/09/19 12:57 Vital Signs Reviewed: Yes Procedures - Sedation Patient Received Moderate/Deep Sedation with Procedure: No Diagnostics - Vital Signs Vital Signs Temp Pulse Resp BP Pulse Ox 05/09/19 12:57 97.9 F 114 22 144/86 88 - Laboratory Lab Results: Lab Results 05/09/19 05/09/19 05/09/19 Range/Units 13:01 13:01 13:01 WBC 11.6 H (3.5-10.8) 10^3/uL RBC 5.08 (4.18-5.48) 10^6 /uL Hgb 14.7 (14.0-18.0) g/dL Hct 45 (42-52) % MCV 88 (80-94) fL MCH 29 (27-31) pg MCHC 33 (31-36) g/dL RDW 16 H (10-15) % Plt Count 248 (150-450) 10^3/uL MPV 7.9 (7.4-10.4) fL Neut % (Auto) 82.1 % Lymph % (Auto) 8.1 % [place] % (Auto) 6.6 % Eos % (Auto) 1.9 % Baso % (Auto) 1.3 % Absolute Neuts (auto) 9.5 H (1.5-7.7) 10^3/ul Absolute Lymphs (auto) 0.9 L (1.0-4.8) 10^3/ul Absolute Monos (auto) 0.8 (0-0.8) 10^3/ul Absolute Eos (auto) 0.2 (0-0.6) 10^3/ul Absolute Basos (auto) 0.2 (0-0.2) 10^3/ul Absolute Nucleated RBC 0.0 10^3/ul Nucleated RBC % 0.0 INR (Anticoag Therapy) 1.48 H (0.82-1.09) Sodium 137 (135-145) mmol/L Potassium 4.1 (3.5-5.0) mmol/L Chloride 99 L (101-111) mmol/L Carbon Dioxide 30 (22-32) mmol/L Anion Gap 8 (2-11) mmol/L BUN 45 H (6-24) mg/dL Creatinine 1.41 H (0.67-1.17) mg/dL Est GFR ( Amer) 59.0 (>60) Est GFR (Non-Af Amer) 48.7 (>60) BUN/Creatinine Ratio 31.9 H (8-20) Glucose 179 H (70-100) mg/dL Calcium 9.7 (8.6-10.3) mg/dL Total Bilirubin 0.50 (0.2-1.0) mg/dL AST 14 (13-39) U/L ALT 12 (7-52) U/L Alkaline Phosphatase 74 (34-104) U/L Troponin I 0.01 (<0.03) ng/mL Total Protein 7.3 (6.4-8.9) g/dL Albumin 4.0 (3.2-5.2) g/dL Globulin 3.3 (2-4) g/dL Albumin/Globulin Ratio 1.2 (1-3) Result Diagrams: 05/09/19 13:01 05/09/19 13:01 Lab Statement: Any lab studies that have been ordered have been reviewed, and results considered in the medical decision making process. - CT Chest/Thorax CTA CT Interpretation Completed By: Radiologist Summary of CT Findings: 1. 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 No additional pulmonary emboli evident. 2. Bilateral predominant lower lobe atelectasis. ED physician has reviewed this report. - EKG 1255 Cardiac Rate: NL - 95bpm EKG Rhythm: Sinus Rhythm ST Segment: Normal Ectopy: None EKG Comparison: No Significant Change Summary of EKG Findings: EKG at 1255 shows normal sinus rhythm at 95bpm. Non- specific intraventricular conduction delay. No STEMI. No significant change from prior EKG. Dr. Hernandez has reviewed this EKG. Chest Pain Course/Dx - Course Course Of Treatment: Pt is a 79 y/o M presenting to the ED with a chief complaint of chest pain initially onset this morning in his upper sternal region , non-radiating, described as sharp. He reports sore throat, shortness of breath , and fatigue. Denies calf or abd pain. Currently on Eliquis for clot in R leg. No cardiac hx. Noted SaO2 79% in triage note, inc to 88% on 4L O2 nc. EKG at 1255 shows normal sinus rhythm at 95bpm. Non-specific intraventricular conduction delay. No STEMI. No significant change from prior EKG. Dr. Hernandez has reviewed this EKG. Pt's physical exam WNL. No wheezes, rales, or rhonchi noted on pulm exam. Respiratory effort is nml, pt breathing comfortably. D- dimer >1050, CTA chest ordered. CTA shows: 1. 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 No additional pulmonary emboli evident. 2. Bilateral predominant lower lobe atelectasis. Pt to be d/c'ed with dx of chest pain and dyspnea. Instructed to use supplemental oxygen at home during the day, at least 2L, and to f/u with PCP. Agreeable with plan. - Diagnoses Provider Diagnoses: Chest pain, Dyspnea Discharge ED - Sign-Out/Discharge Documenting (check all that apply): Patient Departure - Discharge Plan Condition: Stable Disposition: HOME Patient Education Materials: Chest Pain (ED), Dyspnea (ED) Referrals: Shae Charles MD [Primary Care Provider] - Additional Instructions: You should use supplemental oxygen during the day, at a minimum level of 2L. Follow up with your primary care provider within the next 2 days. Return to the emergency department with any new or worsening symptoms. - Billing Disposition and Condition Condition: STABLE Disposition: Home - Attestation Statements Document Initiated by Scribe: Yes Documenting Scribe: Colleen Trammell Provider For Whom Karo is Documenting (Include Credential): August Hernandez DO. Scribe Attestation: IColleen, scribed for August Hernandez DO. on 05/09/19 at 1633. Scribe Documentation Reviewed: Yes Provider Attestation: The documentation as recorded by the scribe, Colleen Trammell accurately reflects the service I personally performed and the decisions made by , August Hernandez DO. Status of Scribe Document: Viewed
[2019-05-09] MEDS ORDERED: Albuterol/Ipratropium NEB.SOL* Albuterol 2.5 MG/Ipratropium 0.5 MG 3 ML INH ONE ×2 (13:34→13:35)
[2019-05-09] MEDS ORDERED: NS 0.9% 1000 ML** 1,000 ML IV ONE (13:39)
[2019-05-09] MEDS ORDERED: Iodixanol* (CONTRAST) 320 MG/ML 100 ML SDV IV ONE (14:06)
[2019-05-09 16:38] VITALS: BP 144/77
== END 2019-05-09 16:37 | disposition home or self-care (01) ==
LOC: ED 12:50
DX: R07.9 Chest pain, unspecified (principal); R06.00 Dyspnea, unspecified; E11.9 Type 2 diabetes mellitus without complications; E78.00 Pure hypercholesterolemia, unspecified; I10 Essential (primary) hypertension; J44.9 Chronic obstructive pulmonary disease, unspecified; K21.9 Gastro-esophageal reflux disease without esophagitis; N40.0 Benign prostatic hyperplasia without lower urinary tract symptoms; F32.9 Major depressive disorder, single episode, unspecified; Z96.651 Presence of right artificial knee joint; Z87.891 Personal history of nicotine dependence; Z79.01 Long term (current) use of anticoagulants; Z79.899 Other long term (current) drug therapy; Z88.1 Allergy status to other antibiotic agents; Z88.8 Allergy status to other drugs, medicaments and biological substances
CPT/HCPCS: 36415; 71275; 80053; 83880; 84484; 85025; 85379; 85610; 93005; 96360; 99283; A9270-GY; Q9967

== ENCOUNTER 2019-06-24 21:03 | Observation (INO) | payer MEDICARE ==
--- OUTSIDE RECORDS SUMMARY | 2019-06-24 21:28 | XMS REPORT | Continuity of Care Document ---
:1940 External Reference #:[id number] Author Name Milena Funk N.P. (transmitted by agent of provider Rosemary Dobson) Address [address] [facility], [place] [address] Care Team Providers Name Role Phone Keegan Lujan MD - Psychiatry Care Team Information [employer] Ruddy Ames M.D. - Rheumatology Care Team Information [employer] Luis Daniel Jacob MD - Water Treatment Plant Supervisor Care Team Information [employer] [phone] Iris Patel MD - Vascular Surgery Care Team Information [employer] [phone] Vika Pierce FNP-Cde - Family Care Team Information [employer] Ashley Hammond MD - Pulmonary Care Team Information [employer] [phone] Disease Saturnino Moreno MD - Urology Care Team Information [employer] [phone] Shae Charles M.D. - Family Medicine Care Team Information [employer] [phone] Problems Active Problems Provider Date Gout Germain [...] a former Unknown smoker Smoking Status Reviewed: 06/15/19 Patient is a former smoker Exercise Type/Frequency Exercises regularly Allergies, Adverse Reactions, Alerts Active Allergies Reaction Severity Comments Date Ibuprofen 03/26/2007 Levaquin enthesitis 07/04/2009 Bee Sting erythema & swelling Moderate 11/30/2014 Neosporin 11/16/2015 Medications Active Medications SIG Qnty Indications Ordering Date Provider Sadia 1 tablet bid 84tabs Milena Blessing, 05/06/2019 5mg Tablets N.P. Colcrys 2 tabs po x1, then 1 [...] Jayashree Lee, 2016 ER Mouth Every Day Fidel 25mg Tablets ER 24HR Epipen 2-Jl use [...] as needed 15gm Germain Caban 2% Cream Fiedl Granda,FACP Oxygen 4 liters at bedtime Kaylah [...] Capsules mouth twice a day MD Rios Amoxicillin take 4 pills, 2 g 1 Unknown 500mg hour before dental Capsules or gi procedure Vitamin D3 1 by mouth every day Unknown 25mcg (1000 Ut) Capsules Stool Softener once daily Unknown 100mg Capsules History Medications Cortisporin-TC instill 5 drops 10ml B37.84 Mukesh Crisostomo 12/18/2018 - into affected Fidel Baugh 12/18/2018 3.3-3-10-0.5mg/ml ear 3 times per Suspension day for 7 days Acetic Acid 5 drops to r ear 15ml B37.84 Mukesh Crisostomo 12/18/2018 - 2% Solution three times a Fidel Baugh 02/03/2019 day for 1 week Immunizations CPT Code Status Date Vaccine Lot # [id number] Given 03/22/2019 Influenza Virus Vaccine, Quadrivalent, Split, Preservative Free 25439 Given 01/14/2018 Influenza Virus Vaccine, Quadrivalent, Split, [id number] Preservative Free 79091 Given 02/21/2017 Influenza Virus Vaccine, Quadrivalent, Split, [id number] Preservative Free 36008 Given 01/29/2016 Influenza Virus Vaccine, Quadrivalent, Split, [id number] Preservative Free [id number] Given 03/28/2015 Fluvirin Im 3Yrs And Older 83332 Given 03/08/2015 Influenza Virus Vaccine, Quadrivalent, Split, [id number] Preservative Free 16675 Given 09/15/2014 Pneumococcal Conjugate Vaccine 13 Valent For [id number] Intramuscular Use 78714 Given 03/14/2014 Flu Vaccine Split Virus Preservative Free For [id number] Indiv 3Yr Older 42838 Given 03/11/2013 Flu Vaccine Split Virus Preservative Free For [id number] Indiv 3Yr Older Q2037 Given 03/17/2012 Fluvirin Im 3Yrs And Older [id number] 55807 Given 11/14/2011 Pneumonia Vaccine [id number] 06656 Given 04/02/2011 Influenza Virus 3Yrs & Over [id number] 91108 Given 02/10/2010 Influenza Virus 3Yrs & Over 22066 Given 05/25/2009 Influenza Virus 3Yrs & Over [id number] 82340 Given 05/03/2009 Influenza Virus Vaccine, Pandemic Formulation [id number] 5P 59715 Given 05/03/2009 Administration Swine Flu Shot 60463 Given 05/13/2008 Influenza Virus 3Yrs & Over 01142 Given 05/13/2008 Influenza Virus 3Yrs & Over [id number] 16430 Given 12/18/2007 Zoster (Zostavax) 63322 Given 07/16/2006 Tetanus And Diptheria (Td) For Adult Use Preservative Free 78962 Given 03/26/2006 Pneumonia Vaccine Vital Signs Date Vital Result Comment 06/15/2019 11:22am Height 71 inches 5'11" Weight 291.00 lb Heart Rate 78 /min BP Systolic Sitting 108 mmHg BP Diastolic Sitting 71 mmHg Body Temperature 97.4 F O2 % BldC Oximetry 90 % BMI (Body Mass Index) 40.6 kg/m2 06/08/2019 2:11pm Height 71 inches 5'11" Weight 287.00 lb Heart Rate 75 /min BP Systolic Sitting 124 mmHg L arm BP Diastolic Sitting 76 mmHg L arm O2 % BldC Oximetry 90 % BMI (Body Mass Index) 40.0 kg/m2 Results Test Acquired Date Facility Test Result H/L Range Note Neph Routine 06/03/2019 [facility] Total Protein < 4 mg/dL [address] [place] [address] [phone] Creatinine Random Urine 25.59 mg/dL CBC Auto 06/03/2019 [facility] White Blood 10.4 10^3/uL Normal 3.5-10.[address] [place] [address] [phone] Red Blood Count 5.14 10^6/uL Normal 4.18-5.48 Hemoglobin 15.1 g/dL Normal 14.0-18.0 Hematocrit 45 % Normal 42-52 Mean Corpuscular Volume 87 fL Normal 80-94 Mean Corpuscular Hemoglobin 29 pg Normal 27-31 Mean Corpuscular HGB Conc 34 g/dL Normal 31-36 Red Cell Distribution Width 16 % High 10-15 Platelet Count 232 10^3/uL Normal 150-450 Mean Platelet Volume 8.7 fL Normal 7.4-10.4 Abs Neutrophils 7.7 10^3/uL Normal 1.5-7.7 Abs Lymphocytes 1.4 10^3/uL Normal 1.0-4.8 Abs Monocytes 0.9 10^3/uL High 0-0.8 Abs Eosinophils 0.4 10^3/uL Normal 0-0.6 Abs Basophils 0.1 10^3/uL Normal 0-0.2 Abs Nucleated RBC 0.0 10^3/uL Granulocyte % 73.9 % Lymphocyte % 13.2 % Monocyte % 8.2 % Eosinophil % 3.5 % Basophil % 1.2 % Nucleated Red Blood Cells % 0.2 Basic Metabolic 06/03/2019 [facility] Sodium 140 mmol/L Normal 135-145 [address] [place] [address] [phone] Potassium 4.6 mmol/L Normal 3.5-5.0 Chloride 99 mmol/L Low 101-111 Co2 Carbon Dioxide 34 mmol/L High 22-32 Anion Gap 7 mmol/L Normal 2-11 Glucose 102 mg/dL High 70-100 Blood Urea Nitrogen 45 mg/dL High 6-24 Creatinine 1.53 mg/dL High 0.67-1.17 BUN/Creatinine Ratio 29.4 High 8-20 Calcium 9.4 mg/dL Normal 8.6-10.3 Egfr Non- 44.4 >60 Egfr 53.7 >60 1 Urinalysis Profile 06/03/2019 [facility] Urine Color St[place] [address] [place] [address] [phone] Urine Appearance Clear Urine Specific Clyde 1.008 Low 1.010-1.030 Urine pH 5.0 Normal 5-9 Urine Urobilinogen Negative Negative Urine Ketones Negative Negative Urine Protein Negative Negative Urine Leukocytes Negative Negative Urine Blood 1+ Abnormal Negative Urine Nitrite Negative Negative Urine Bilirubin Negative Negative Urine Glucose Negative Negative Urine White Blood Cell Trace(0-5/hpf) Absent Urine Red Blood Cell Trace(0-2/hpf) Absent Urine Bacteria Absent Absent Urine Squamous Epithelial Cell Present Abnormal Absent Urine Culture And 06/03/2019 [facility] Urine SEE RESULT [address] [place] [address] [phone] Laboratory test 05/09/2019 [facility] Troponin-I 0.01 ng/mL < 0.03 [address] (TnI) [place] [address] [phone] CBC Auto Diff 05/09/2019 [facility] White Blood 11.6 High 3.5- [address] Count 10^3/uL 0.8 [place] [phone] Red Blood Count 5.08 10^6/uL Normal 4.18-5.48 Hemoglobin 14.7 g/dL Normal 14.0-18.0 Hematocrit 45 % Normal 42-52 Mean Corpuscular Volume 88 fL Normal 80-94 Mean Corpuscular Hemoglobin 29 pg Normal 27-31 Mean Corpuscular HGB Conc 33 g/dL Normal 31-36 Red Cell Distribution Width 16 % High 10-15 Platelet Count 248 10^3/uL Normal 150-450 Mean Platelet Volume 7.9 fL Normal 7.4-10.4 Abs Neutrophils 9.5 10^3/uL High 1.5-7.7 Abs Lymphocytes 0.9 10^3/uL Low 1.0-4.8 Abs Monocytes 0.8 10^3/uL Normal 0-0.8 Abs Eosinophils 0.2 10^3/uL Normal 0-0.6 Abs Basophils 0.2 10^3/uL Normal 0-0.2 Abs Nucleated RBC 0.0 10^3/uL Granulocyte % 82.1 % Lymphocyte % 8.1 % Monocyte % 6.6 % Eosinophil % 1.9 % Basophil % 1.3 % Nucleated Red Blood Cells % 0.0 Inr/Protime 05/09/2019 [facility] Inr 1.48 High 0.82-1.[address] [place] [address] [phone] Comp Metabolic 05/09/2019 [facility] Sodium 137 mmol/L Normal 135-[address] [place] [address] [phone] Potassium 4.1 mmol/L Normal 3.5-5.0 Chloride 99 mmol/L Low 101-111 Co2 Carbon Dioxide 30 mmol/L Normal 22-32 Anion Gap 8 mmol/L Normal 2-11 Glucose 179 mg/dL High 70-100 Blood Urea Nitrogen 45 mg/dL High 6-24 Creatinine 1.41 mg/dL High 0.67-1.17 BUN/Creatinine Ratio 31.9 High 8-20 Calcium 9.7 mg/dL Normal 8.6-10.3 Total Protein 7.3 g/dL Normal 6.4-8.9 Albumin 4.0 g/dL Normal 3.2-5.2 Globulin 3.3 g/dL Normal 2-4 Albumin/Globulin Ratio 1.2 Normal 1-3 Total Bilirubin 0.50 mg/dL Normal 0.2-1.0 Alkaline Phosphatase 74 U/L Normal 34-104 Alt 12 U/L Normal 7-52 Ast 14 U/L Normal 13-39 Egfr Non- 48.7 >60 Egfr 59.0 >60 5 Laboratory test 05/09/2019 [facility] Troponin-I (TnI) 0.01 ng/ mL <0.03 6 finding [address] [place] [address] [phone] D Dimer Quantitative > 1050 ng/mL High Less Than 230 7 Laboratory test 05/09/2019 [facility] B-Type 21 pg/mL <=[address] [place] [address] Peptide BNP [phone] Comp Metabolic 05/06/2019 [facility] Sodium 141 Normal 135- [address] mmol/[place] [address] [phone] Potassium 4.8 mmol/L Normal 3.5-5.0 Chloride 101 mmol/L Normal 101-111 Co2 Carbon Dioxide 32 mmol/L Normal 22-32 Anion Gap 8 mmol/L Normal 2-11 Glucose 114 mg/dL High 70-100 Blood Urea Nitrogen 43 mg/dL High 6-24 Creatinine 1.55 mg/dL High 0.67-1.17 BUN/Creatinine Ratio 27.7 High 8-20 Calcium 9.7 mg/dL Normal 8.6-10.3 Total Protein 6.3 g/dL Low 6.4-8.9 Albumin 3.8 g/dL Normal 3.2-5.2 Globulin 2.5 g/dL Normal 2-4 Albumin/Globulin Ratio 1.5 Normal 1-3 Total Bilirubin 0.40 mg/dL Normal 0.2-1.0 Alkaline Phosphatase 76 U/L Normal 34-104 Alt 14 U/L Normal 7-52 Ast 16 U/L Normal 13-39 Egfr Non- 43.7 >60 Egfr 52.9 >60 8 CBC Auto 05/06/2019 [facility] White Blood 11.5 10^3/uL High 3.5-10.[address] [place] [address] [phone] Red Blood Count 4.83 10^6/uL Normal 4.18-5.48 Hemoglobin 14.0 g/dL Normal 14.0-18.0 Hematocrit 42 % Normal 42-52 Mean Corpuscular Volume 88 fL Normal 80-94 Mean Corpuscular Hemoglobin 29 pg Normal 27-31 Mean Corpuscular HGB Conc 33 g/dL Normal 31-36 Red Cell Distribution Width 15 % Normal 10-15 Platelet Count 222 10^3/uL Normal 150-450 Mean Platelet Volume 8.8 fL Normal 7.4-10.4 Abs Neutrophils 9.2 10^3/uL High 1.5-7.7 Abs Lymphocytes 1.1 10^3/uL Normal 1.0-4.8 Abs Monocytes 0.9 10^3/uL High 0-0.8 Abs Eosinophils 0.2 10^3/uL Normal 0-0.6 Abs Basophils 0.1 10^3/uL Normal 0-0.2 Abs Nucleated RBC 0.0 10^3/uL Granulocyte % 80.3 % Lymphocyte % 9.4 % Monocyte % 7.5 % Eosinophil % 1.9 % Basophil % 0.9 % Nucleated Red Blood Cells % 0.0 Laboratory 05/06/2019 [facility] B-Type 21 pg/mL <=100 test finding [address] [place] [address] Peptide BNP [phone] Laboratory 04/15/2019 [facility] Troponin-I 0.01 <0.03 9 test finding [address] (TnI) ng/[place] [address] [phone] CBC Auto Diff 04/15/2019 [facility] White Blood 9.5 Normal 3.5 -10.[address] Count 10^3/[place] [address] [phone] Red Blood Count 5.02 10^6/uL Normal 4.18-5.48 [...] Blood Cells % 0.1 Comp Metabolic 04/15/2019 [facility] Sodium 140 mmol/L Normal 135-[address] [place] [address] [phone] Potassium 4.6 mmol/L Normal 3.5-5.0 Chloride 100 [...] Egfr Non- 45.5 >60 Egfr 55.1 >60 10 Laboratory test 03/12/2019 [facility] House Hemoglobin A1c 6.4 5-7 finding Urine Culture And 03/12/2019 [facility] Urine Culture SEE RESULT [address] [place] [address] [phone] Urine Microalbumin 03/12/2019 [facility] Ur Microalbumin 48.2 mg /L Random [address] (mg/L) [place] [address] [phone] Urine Creatinine 81.45 mg/dL Urine Microalbumin/Creatinine 59.1 High <31 Basic Metabolic 03/12/2019 [facility] Sodium 140 mmol/L Normal 135-[address] [place] [address] [phone] Potassium 4.4 mmol/L Normal 3.5-5.0 Chloride 102 mmol/L Normal 101-111 Co2 Carbon Dioxide 30 mmol/L Normal 22-32 Anion Gap 8 mmol/L Normal 2-11 Glucose 103 mg/dL High 70-100 Blood Urea Nitrogen 49 mg/dL High 6-24 Creatinine 1.37 mg/dL High 0.67-1.17 BUN/Creatinine Ratio 35.8 High 8-20 Calcium 9.8 mg/dL Normal 8.6-10.3 Egfr Non- 50.5 >60 Egfr 61.1 >60 12 Urinalysis Profile 03/12/2019 [facility] Urine Color Yellow [address] [place] [address] [phone] Urine Appearance Clear Urine Specific Clyde 1.015 Normal 1.010-1.030 Urine pH 5.0 Normal [...] Urine Squamous Epithelial Cell Present Abnormal Absent Urine Culture And 01/22/2019 [facility] Urine Culture SEE RESULT [address] [place] [address] [phone] Teresa Igg AB Reflex 01/22/2019 [facility] SS-A/Ro <0.2 U [address] [place] [address] [phone] SS-B/La Antibody <0.2 U 15 Sm ([place]) IgG Antibody <0.2 U 16 SIDE SPLITTER Antibody, IgG 0.3 U 17 Scl-70 (Scleroderma) Antibody <0.2 U 18 Rebecca-1 Antibody <0.2 U 19 Laboratory test 01/22/2019 [facility] Total Protein 18 mg/dL finding [address] [place] [address] [phone] Immunoglobulin A (Iga) 204 mg/dL 61 - 356 20 Urine Protein Elctrophoresis 01/22/2019 [facility] Albumin 75 % 21 (RDM) [address] [place] [address] [phone] Alpha-1 Globulin 4 % 22 Alpha-2 Globulin 6 % 23 Beta Globulin 8 % 24 Gamma Globulin 8 % 25 Albumin/Globulin Ratio 2.99 % Impression See Comment 26 Total Protein(Pep) Urine 17 mg/dL 27 Laboratory test 01/22/2019 [facility] Urine Creatinine 46.80 mg/ dL finding [address] [place] [address] [phone] Urinalysis 01/22/2019 [facility] Urine Color Yellow Profile [address] [place] [address] [phone] Urine Appearance Clear Urine Specific Clyde 1.016 Normal 1.010-1.030 Urine pH 6.0 Normal 5-9 Urine Urobilinogen Negative Negative Urine Ketones Negative Negative Urine Protein Negative Negative Urine Leukocytes Trace Abnormal Negative Urine Blood 1+ Abnormal Negative Urine Nitrite Negative Negative Urine Bilirubin Negative Negative Urine Glucose Negative Negative Urine White Blood Cell 1+(6-10/hpf) Abnormal Absent Urine Red Blood Cell Trace(0-2/hpf) Absent Urine Bacteria Absent Absent Total Protein 24HR 01/22/2019 [facility] Urine Collection Time 24 hr Urine [address] [place] [address] [phone] Urine Total Volume 3150 mL Urine Total Protein/24HR 220 mg/24Hr High 0-165 Protein 01/22/2019 [facility] Total 6.4 g/dL 6.3 - Electrophoresis [address] Protein(Pep) 7.9 [place] [address] [phone] Albumin 3.1 g/dL Abnormal 3.4-4.7 Alpha-1 Globulin 0.3 g/dL 0.1-0.3 Alpha-2 Globulin 1.2 g/dL Abnormal 0.6-1.0 Beta Globulin 0.9 g/dL 0.7-1.2 Gamma Globulin 0.9 g/dL 0.6-1.6 Albumin/Globulin Ratio 0.93 Impression See Comment 28 [place]/Lambda Free 01/22/2019 [facility] [place] Free 5.71 mg/dL Abnormal [address] [place] [address] [phone] Lambda Free Light Chain 2.65 mg/dL Abnormal 30 [place]/Lambda Free Light Chain 2.15 Abnormal 31 Creatinine Clearance 01/22/2019 [facility] Urine Collection [address] [place] [address] [phone] Urine Total Volume 3150 mL Creatinine, Serum 1.26 mg/dL High 0.51-0.95 Creatinine Clearance 81 mL/min Low 97-137 Comp Metabolic 01/22/2019 [facility] Sodium 137 mmol/L Normal 135-[address] [place] [address] [phone] Potassium 4.4 mmol/L Normal 3.5-5.0 Chloride 100 [...] Egfr Non- 57.2 >60 Egfr 69.2 >60 32 Hepatitis C Antibody 01/22/2019 [facility] HCV Index 0.02 s/c [address] [place] [address] [phone] Hepatitis C Antibody Negative Negative Laboratory test 01/22/2019 [facility] Creatine 48 U/L Normal 10-223 [facility] Kinase(CK) [place] [address] [phone] Glomerular Basement Membrane <0.2 U 33 Hepatitis B Surface Ag Nonreactive Nonreactive CBC Auto 01/22/2019 [facility] White Blood 9.0 10^3/uL Normal 3.5-10.[address] [place] [address] [phone] Red Blood Count 5.16 10^6/uL Normal 4.18-5.48 [...] Cells % 0.0 Anca Panel For 01/22/2019 [facility] Myeloperoxidase AB < 0.2 U [address] [place] [address] [phone] Proteinase 3 AB < 0.2 U 35 Laboratory test 01/22/2019 [facility] Uric Acid 8.4 mg/dL High 4.4-7.[address] [place] [address] [phone] Laboratory test 01/19/2019 [facility] Uric Acid 8.5 mg/dL High 4.4-7.[address] [place] [address] [phone] 1 Because ethnic data is not always [...] 5 Kidney failure <15 (or dialysis) 2 SEE RESULT BELOW Name: EMILYOTFLYNN : [address]: Pat Beauchamp MD Acct: [id number] Unit: [id number] AGE: 79 Location: [facility] Re06/03/19 SEX: M Status: REG REF SPEC: [id number] KHUSHI: 06/03/[address]: Pat Beauchamp MD REQ: [id number] RECD: 06/03/19 STATUS: COMP OTHR DR: Shae Charles MD _ SOURCE: URINE SPDESC: ORDERED: Urine Culture Procedure Result Reported Site Urine Culture Final 06/06/19- 1451 ML No growth of clinically significant organisms * ML - Main Lab . END OF REPORT DEPARTMENT OF PATHOLOGY, [address] [place] [address] Phoenix Del Castillo M.D. Director [facility] # [id number] 3 Troponin-I testing on Plasma Separator Tubes (PST) has a known false positive rate of 0.20-0.40%. All positive troponins reflex immediately to secondary confirmatory testing. Using the [employer] DxI 800 Access Immunoassay systems, the 99th percentile upper reference limit was demonstrated to be < 0.03 ng/mL. 4 Standard intensity warfarin therapeutic range: 2.0-3.0 High intensity warfarin therapeutic range: 2.5-3.5 5 Because ethnic data is not always readily [...] 15-29 5 Kidney failure <15 (or dialysis) 6 Troponin-I testing on Plasma Separator Tubes (PST) has a known false positive rate of 0.20-0.40%. All positive troponins reflex immediately to secondary confirmatory testing. Using the [employer] DxI 800 Access Immunoassay systems, the 99th percentile upper reference limit was demonstrated to be < 0.03 ng/mL. 7 Please note: The following may produce a false positive D Dimer test: - Rheumatoid factor greater than 60 IU/ml - Plasma hemoglobin greater than 0.05 gm/dl - Bilirubin greater than 50 mg/dl - Lipids greater than 1000 mg/dl - FDP greater than 20 ug/ml 8 Because ethnic data is not always readily [...] 15-29 5 Kidney failure <15 (or dialysis) 9 Troponin-I testing on Plasma Separator Tubes (PST) has a known false positive rate of 0.20-0.40%. All positive troponins reflex immediately to secondary confirmatory testing. Using the [employer] DxI 800 Access Immunoassay systems, the 99th percentile upper reference limit was demonstrated to be < 0.03 ng/mL. 10 Because ethnic data is not always readily [...] 15-29 5 Kidney failure <15 (or dialysis) 11 SEE RESULT BELOW Name: LYNN WANG : [address]: Thania Nation MD Acct: [id number] Unit: [id number] AGE: 78 Location: [facility] Re03/12/19 SEX: M Status: REG REF SPEC: [id number] KHUSHI: 03/12/[address]: Thania Nation MD REQ: [id number] RECD: 03/12/19 STATUS:COMP _ SOURCE: URINE SPDESC: ORDERED: Urine Culture Procedure Result Reported Site Urine Culture Final 03/15/19832 ML Organism 1 STAPHYLOCOCCUS EPIDERMIDIS [place] Count 50-75,000 (Many) CFU/ML 1. STAPHYLOCOCCUS EPIDERMIDIS [...] CONTINUED ON NEXT PAGE DEPARTMENT OF PATHOLOGY, [address] [place] [address] Phoenix Del Castillo M.D. Director [facility] # [id number] Specimen: [id number] Collected: 03/12/19 Received: 03/12/19 (Continued) Procedure Result Reported Site Urine Culture Final (continued) * These antibiotics are not available in the [facility] Formulary Contact the Microbiology Department for any additional antibiotic reporting. * ML - Main Lab . END OF REPORT DEPARTMENT OF PATHOLOGY, [address] [place] [address] Phoenix Del Castillo M.D. Director [facility] # [id number] 12 Because ethnic data is not always readily [...] 15-29 5 Kidney failure <15 (or dialysis) 13 SEE RESULT BELOW Name: LYNN WANG : [address]: Pat Beauchamp MD Acct: [id number] Unit: [id number] AGE: 78 Location: LAB Re01/22/19 SEX: M Status: REG REF SPEC: [id number] KHUSHI: 01/22/19-[address]: Pat Beauchamp MD REQ: [id number] RECD: 01/22/19-1301 STATUS: VERENA HAY DR: Shae Moreno MD _ SOURCE: URINE SPDESC: ORDERED: Urine Culture Procedure Result Reported Site Urine Culture Final 01/24/19- 0931 ML No growth of clinically significant organisms * ML - Main Lab . END OF REPORT DEPARTMENT OF PATHOLOGY, [address], [place], [place] [address] Phoenix Del Castillo M.D. Director [facility] # [id number] 14 REFERENCE VALUE <1.0 (Negative) 15 REFERENCE VALUE <1.0 (Negative) 16 REFERENCE VALUE <1.0 (Negative) 17 REFERENCE VALUE <1.0 (Negative) 18 REFERENCE VALUE <1.0 (Negative) 19 REFERENCE VALUE <1.0 (Negative) Test Performed by: [facility] [place] [address] Kindergarten Instructional Assistant: Kishan Hernandez M.D. Ph.D.; CLIA# [id number] 20 Test Performed by: [facility] [place] [address] Kindergarten Instructional Assistant: Kishan Hernandez M.D. Ph.D.; CLIA# [id number] 21 13 mg/dL 22 1 mg/dL 23 1 mg/dL 24 1 mg/dL 25 1 mg/dL 26 RESULT: All fractions present, no apparent M-spike. 27 ADDITIONAL INFORMATION On 10/22/2016 the total protein assay method changed resulting in approximately a 15% increase in protein values. Test Performed by: [facility] [place] [address] Kindergarten Instructional Assistant: Kishan Hernandez M.D. Ph.D.; CLIA# [id number] Test Performed by: [facility] - [address] [address] Kindergarten Instructional Assistant: Kishan Hernandez M.D. Ph.D.; CLIA# [id number] 28 RESULT: No apparent monoclonal protein on serum electrophoresis. Test Performed by: [facility] [place] [address] Kindergarten Instructional Assistant: Kishan Hernandez M.D. Ph.D.; CLIA# [id number] 29 REFERENCE VALUE 0.3300-1.94 30 REFERENCE VALUE 0.5700-2.63 31 Elevated free light chain ratios between 1.66 and 3.00 may occur due to polyclonal hypergammaglobulinemia or impaired renal clearance. An isolated increased free light chain ratio in this range should be interpreted with caution, and clinical correlation is recommended. REFERENCE VALUE 0.2600-1.65 Test Performed by: [facility] [place] [address] Kindergarten Instructional Assistant: Kishan Hernandez M.D. Ph.D.; CLIA# [id number] 32 Because ethnic data is not always readily [...] 15-29 5 Kidney failure <15 (or dialysis) 33 REFERENCE VALUE <1.0 (Negative) Test Performed by: [place] [address] Kindergarten Instructional Assistant: Kishan Hernandez M.D. Ph.D.; CLIA# [id number] 34 REFERENCE VALUE <0.4 (Negative) 35 REFERENCE VALUE <0.4 (Negative) Test Performed by: [place] [address] Kindergarten Instructional Assistant: Kishan Hernandez M.D. Ph.D.; CLIA# [id number] Procedures Date Code Description Status 04/07/2019 583640825 Diabetic Retinal Eye Exam Completed 04/06/2018 [id number] Diabetic Retinal Eye Exam Completed 06/19/2017 [id number] Diabetic Retinal Eye Exam Completed 02/20/2017 [id number] Colonoscopy Completed 05/23/2016 [id number] Diabetic Retinal Eye Exam Completed 05/18/2015 [id number] Diabetic Retinal Eye Exam Completed 04/09/2013 [id number] Diabetic Retinal Eye Exam Completed 12/19/2011 [id number] Colonoscopy Completed 12/23/2008 [id number] Colonoscopy Completed Medical Devices Description No Information Available Encounters Type Date Location Provider Dx Diagnosis Office Visit 05/19/2019 Pulmonology And Andrey Miles44.9 Chronic obstructive 11:30[facility] brennan spicer, Wirer Helper unspecified I26.99 Other pulmonary embolism without acute cor pulmonale R09.02 Hypoxemia G47.33 Obstructive sleep apnea (adult) (pediatric) Office Visit 05/05/2019 Yanique Lynn M75.102 Unsp rotatr-cuff 8:00a Orthoped[facility] at [facility]. tear/ruptr of [place] left shoulder, not trauma M75.92 Shoulder lesion, unspecified, left shoulder Office Visit 05/03/2019 3:40p [facility] Internal Milena Funk, Z86.79 Personal history Medicine - N.P. 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 J44.9 Chronic obstructive pulmonary disease, unspecified N18.9 Chronic kidney disease, unspecified E78.2 Mixed hyperlipidemia K21.0 Gastro-esophageal reflux disease with esophagitis Office Visit 02/01/2019 9:30a [facility] Nephrology Pat 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, adult type N18.9 Chronic kidney disease, unspecified Office Visit 01/19/2019 1:40p [facility] Internal Shae Charles MD H92.01 Otalgia , right Medicine - [facility] ear 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 chronic kidney disease 06/15/2019 J44.9 Chronic obstructive pulmonary disease, Milena Varn, N.P. unspecified 06/15/2019 I26.99 Other pulmonary embolism without acute cor Milena Varn, N.P. pulmonale 06/15/2019 R60.0 Localized edema Milena Varn, N.P. 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 left shoulder, not specified as traumatic 05/05/2019 M75.92 Shoulder lesion, unspecified, left shoulder Leah Sanchez M.D. 05/03/2019 Z86.79 Personal history of other diseases of the Milena Varn, N.P. circulatory system 05/03/2019 R60.0 Localized edema Milena Varn, N.P. 05/03/2019 R06.02 Shortness of breath Milena Varn, N.P. 03/12/2019 E11.22 Type 2 diabetes mellitus [...] MD 01/01/2019 R09.02 Hypoxemia Ashley Hammond MD Plan of Treatment Future Appointment(s):12/08/2019 8:00 am - Barbie Thakur MD at [facility] Fnloeeubei23 /21/2020 10:45 am - Ashley Hammond MD [facility]08/31/2019 10:00 am - Shae Charles MD at [facility] Internal Medicine - Ccmob2019 - Milena Funk, N.P.E11.22 Type 2 diabetes mellitus with diabetic chronic kidney diseaseComments:For your diabetes continue with your current therapy.Follow up:Physical in [address] CharlesJ44.9 Chronic obstructive pulmonary disease, unspecifiedComments:For your COPD continue your current management continue to follow up with Dr HammondI26.99 Other pulmonary embolism without acute cor pulmonaleComments:For your pulmonary embolism, please continue to take the Eliquis.R60.0 Localized edemaComments:To evaluate the swelling in your leg I have ordered an ultrasound to be sure you don't have another clot in your right leg. I will contact you with your results. Functional Status Description No Information Available Mental Status Description No Information Available Referrals Description No Information Available
--- OUTSIDE RECORDS SUMMARY | 2019-06-24 21:28 | XMS REPORT | Continuity of Care Document ---
:1940 External Reference #:[id number] Author Name Ashley Hammond MD (transmitted by agent of provider Beena Cruz) Address [address], [address] [place] [address] Care Team Providers Name Role Phone Keegan Lujan MD - Psychiatry Care Team Information Receptionist Scheduler Ruddy Ames M.D. - Rheumatology Care Team Information Receptionist Scheduler Luis Daniel Jacob MD - Computer Help Desk Representative Care Team Information Receptionist Scheduler Iris Patel MD - Vascular Surgery Care Team Information Receptionist Scheduler [phone] Vika Pierce FNP-Cde - Family Care Team Information Receptionist Scheduler Ashley Hammond MD - Pulmonary Care Team Information Receptionist Scheduler [phone] Disease Saturnino Moreno MD - Urology Care Team Information Receptionist Scheduler [phone] Shae Charles M.D. - Family Medicine Care Team Information Receptionist Scheduler [phone] Problems Active Problems Provider Date Gout Germain [...] a former Unknown smoker Smoking Status Reviewed: 05/19/19 Patient is a former smoker Exercise Type/Frequency [...] Mouth Every Day Capsules DR Spirometer incentive 1units Ashley Hammond, 12/07/2017 Kit spirometer, use as [...] Capsules mouth twice a day MD Rios History Medications Cortisporin-TC instill 5 drops 10ml B37.84 Mukesh Crisostomo 12/18/2018 - into affected Fidel Baugh 12/18/2018 3.3-3-10-0.5mg/ml ear 3 times per Suspension day for 7 days Acetic Acid 5 drops to r ear 15ml B37.84 Mukesh Crisostomo 12/18/2018 - 2% Solution three times a Fidel Baugh 02/03/2019 day for 1 week Immunizations CPT Code Status Date Vaccine Lot # [id number] Given 03/22/2019 Influenza Virus Vaccine, Quadrivalent, Split, Preservative Free 19686 Given 01/14/2018 Influenza Virus Vaccine, Quadrivalent, Split, [id number] Preservative Free 20336 Given 02/21/2017 Influenza Virus Vaccine, Quadrivalent, Split, [id number] Preservative Free 06904 Given 01/29/2016 Influenza Virus Vaccine, Quadrivalent, Split, [id number] Preservative Free [id number] Given 03/28/2015 Fluvirin Im 3Yrs And Older 46640 Given 03/08/2015 Influenza Virus Vaccine, Quadrivalent, Split, [id number] Preservative Free 51202 Given 09/15/2014 Pneumococcal Conjugate Vaccine 13 Valent For [id number] Intramuscular Use 68735 Given 03/14/2014 Flu Vaccine Split Virus Preservative Free For [id number] Indiv 3Yr Older 77661 Given 03/11/2013 Flu Vaccine Split Virus Preservative Free For [id number] Indiv 3Yr Older Q2037 Given 03/17/2012 Fluvirin Im 3Yrs And Older [id number] 24243 Given 11/14/2011 Pneumonia Vaccine [id number] 03272 Given 04/02/2011 Influenza Virus 3Yrs & Over [id number] 89794 Given 02/10/2010 Influenza Virus 3Yrs & Over 74578 Given 05/25/2009 Influenza Virus 3Yrs & Over [id number] 16162 Given 05/03/2009 Influenza Virus Vaccine, Pandemic Formulation [id number] 5P 06938 Given 05/03/2009 Administration Swine Flu Shot 24008 Given 05/13/2008 Influenza Virus 3Yrs & Over 42730 Given 05/13/2008 Influenza Virus 3Yrs & Over [id number] 73366 Given 12/18/2007 Zoster (Zostavax) 93360 Given 07/16/2006 Tetanus And Diptheria (Td) For Adult Use Preservative Free 61155 Given 03/26/2006 Pneumonia Vaccine Vital Signs Date Vital Result Comment 05/19/2019 11:16am Height 71 inches 5'11" Weight 286.25 lb Heart Rate 82 /min BP Systolic Sitting 124 mmHg Lue large cuff BP Diastolic Sitting 78 mmHg Lue large cuff O2 % BldC Oximetry 95 % On Ra BMI (Body Mass Index) 39.9 kg/m2 05/05/2019 8:24am Height 71 inches 5'11" Weight 276.00 lb Heart Rate 80 /min BP Systolic Sitting 138 mmHg BP Diastolic Sitting 84 mmHg Respiratory Rate 18 /min Pain Level 7 BMI (Body Mass Index) 38.5 kg/m2 Results Test Acquired Date Facility Test Result H/L Range Note Laboratory test 05/09/2019 [facility] Troponin-I 0.01 ng/mL < 0.03 [address] (TnI) [place] [address] [phone] CBC Auto Diff 05/09/2019 [facility] White Blood 11.6 High 3.5- 10.[address] Count 10^3/uL [place], [place] [address] [phone] Red Blood Count 5.08 10^6/uL Normal 4.18-5.48 [...] Red Blood Cells % 0.0 Inr/Protime 05/09/2019 [facility] Inr 1.48 High 0.82-1.09 2 [address] [place] [address] [phone] Comp Metabolic 05/09/2019 [facility] Sodium 137 mmol/L Normal 135-145 Panel [address] [place] [address] [phone] Potassium 4.1 mmol/L Normal 3.5-5.0 Chloride 99 [...] Egfr Non- 48.7 >60 Egfr 59.0 >60 3 Laboratory test 05/09/2019 [facility] Troponin-I (TnI) 0.01 ng/ mL <0.03 [address] [place] [address] [phone] D Dimer Quantitative > 1050 ng/mL High Less Than 230 5 Laboratory test 05/09/2019 [facility] B-Type 21 pg/mL <=[address] [place] [address] Peptide BNP [phone] Comp Metabolic 05/06/2019 [facility] Sodium 141 Normal 135- [address] mmol/[place] [address] [phone] Potassium 4.8 mmol/L Normal 3.5-5.0 Chloride 101 [...] Egfr Non- 43.7 >60 Egfr 52.9 >60 6 CBC Auto 05/06/2019 [facility] White Blood 11.5 10^3/uL High 3.5-10.[address] [place] [address] [phone] Red Blood Count 4.83 10^6/uL Normal 4.18-5.48 [...] Red Blood Cells % 0.0 Laboratory 05/06/2019 [facility] B-Type 21 pg/mL <=100 test finding [address] [place] [address] Peptide BNP [phone] Laboratory 04/15/2019 [facility] Troponin-I 0.01 <0.03 7 test finding [address] (TnI) ng/[place] [address] [phone] CBC Auto Diff 04/15/2019 [facility] White Blood 9.5 Normal 3.5 -10.[address] Count 10^3/[place] [address] [phone] Red Blood Count 5.02 10^6/uL Normal 4.18-5.48 [...] Blood Cells % 0.1 Comp Metabolic 04/15/2019 [facility] Sodium 140 mmol/L Normal 135-[address] [place] [address] [phone] Potassium 4.6 mmol/L Normal 3.5-5.0 Chloride 100 [...] Egfr Non- 45.5 >60 Egfr 55.1 >60 8 Laboratory test 03/12/2019 [facility] In House Hemoglobin A1c 6.4 5-7 finding Urine Culture And 03/12/2019 [facility] Urine Culture SEE RESULT [address] [place] [address] [phone] Urine Microalbumin 03/12/2019 [facility] Ur Microalbumin 48.2 mg /L Random [address] (mg/L) [place] [address] [phone] Urine Creatinine 81.45 mg/dL Urine Microalbumin/Creatinine 59.1 High <31 Basic Metabolic 03/12/2019 [facility] Sodium 140 mmol/L Normal 135-[address] [place] [address] [phone] Potassium 4.4 mmol/L Normal 3.5-5.0 Chloride 102 mmol/L Normal 101-111 Co2 Carbon Dioxide 30 mmol/L Normal 22-32 Anion Gap 8 mmol/L Normal 2-11 Glucose 103 mg/dL High 70-100 Blood Urea Nitrogen 49 mg/dL High 6-24 Creatinine 1.37 mg/dL High 0.67-1.17 BUN/Creatinine Ratio 35.8 High 8-20 Calcium 9.8 mg/dL Normal 8.6-10.3 Egfr Non- 50.5 >60 Egfr 61.1 >60 10 Urinalysis Profile 03/12/2019 [facility] Urine Color Yellow [address] [place] [address] [phone] Urine Appearance Clear Urine Specific [place] 1.015 Normal 1.010-1.030 Urine pH 5.0 Normal [...] Present Abnormal Absent Urine Culture And 01/22/2019 [facility] Urine Culture SEE RESULT [address] [place] [address] [phone] Teresa Igg AB Reflex 01/22/2019 [facility] SS-A/Ro <0.2 U [address] [place] [address] [phone] SS-B/La Antibody <0.2 U 13 Sm ([place]) IgG Antibody <0.2 U 14 VIBRATING SCREED OPERATOR Antibody, IgG 0.3 U 15 Scl-70 (Scleroderma) Antibody <0.2 U 16 Rebecca-1 Antibody <0.2 U 17 Laboratory test 01/22/2019 [facility] Total Protein 18 mg/dL finding [address] [place] [address] [phone] Immunoglobulin A (Iga) 204 mg/dL 61 - 356 18 Urine Protein Elctrophoresis 01/22/2019 [facility] Albumin 75 % 19 (RDM) [address] [place] [address] [phone] Alpha-1 Globulin 4 % 20 Alpha-2 Globulin 6 % 21 Beta Globulin 8 % 22 Gamma Globulin 8 % 23 Albumin/Globulin Ratio 2.99 % Impression See Comment 24 Total Protein(Pep) Urine 17 mg/dL 25 Laboratory test 01/22/2019 [facility] Urine Creatinine 46.80 mg/ dL finding [address] [place] [address] [phone] Urinalysis 01/22/2019 [facility] Urine Color Yellow Profile [address] [place] [address] [phone] Urine Appearance Clear Urine Specific [place] 1.016 Normal 1.010-1.030 Urine pH 6.0 Normal 5-9 Urine Urobilinogen Negative Negative Urine Ketones Negative Negative Urine Protein Negative Negative Urine Leukocytes Trace Abnormal Negative Urine Blood 1+ Abnormal Negative Urine Nitrite Negative Negative Urine Bilirubin Negative Negative Urine Glucose Negative Negative Urine White Blood Cell 1+(6-10/hpf) Abnormal Absent Urine Red Blood Cell Trace(0-2/hpf) Absent Urine Bacteria Absent Absent Total Protein 24HR 01/22/2019 [facility] Urine Collection Time 24 hr Urine [address] [place] [address] [phone] Urine Total Volume 3150 mL Urine Total Protein/24HR 220 mg/24Hr High 0-165 Protein 01/22/2019 [facility] Total 6.4 g/dL 6.3 - Electrophoresis [address] Protein(Pep) 7.9 [place] [address] [phone] Albumin 3.1 g/dL Abnormal 3.4-4.7 Alpha-1 Globulin 0.3 g/dL 0.1-0.3 Alpha-2 Globulin 1.2 g/dL Abnormal 0.6-1.0 Beta Globulin 0.9 g/dL 0.7-1.2 Gamma Globulin 0.9 g/dL 0.6-1.6 Albumin/Globulin Ratio 0.93 Impression See Comment 26 Maguayo/Lambda Free 01/22/2019 [facility] Maguayo Free 5.71 mg/dL Abnormal 27 Light Chains Ser [address] [place] [address] [phone] Lambda Free Light Chain 2.65 mg/dL Abnormal 28 Maguayo/Lambda Free Light Chain 2.15 Abnormal 29 Creatinine Clearance 01/22/2019 [facility] Urine Collection [address] [place] [address] [phone] Urine Total Volume 3150 mL Creatinine, Serum 1.26 mg/dL High 0.51-0.95 Creatinine Clearance 81 mL/min Low 97-137 Comp Metabolic 01/22/2019 [facility] Sodium 137 mmol/L Normal 135-145 Panel [address] [place] [address] [phone] Potassium 4.4 mmol/L Normal 3.5-5.0 Chloride 100 [...] Egfr Non- 57.2 >60 Egfr 69.2 >60 30 Hepatitis C Antibody 01/22/2019 [facility] HCV Index 0.02 s/c [address] [place] [address] [phone] Hepatitis C Antibody Negative Negative Laboratory test 01/22/2019 [facility] Creatine 48 U/L Normal 10-223 finding 101 [facility] Kinase(CK) [place] [address] [phone] Glomerular Basement Membrane <0.2 U 31 Hepatitis B Surface Ag Nonreactive Nonreactive CBC Auto 01/22/2019 [facility] White Blood 9.0 10^3/uL Normal 3.5-10.8 Diff [address] [facility] [place] [address] [phone] Red Blood Count 5.16 10^6/uL Normal 4.18-5.48 [...] Cells % 0.0 Anca Panel For 01/22/2019 [facility] Myeloperoxidase AB < 0.2 U [address] [place] [address] [phone] Proteinase 3 AB < 0.2 U 33 Laboratory test 01/22/2019 [facility] Uric Acid 8.4 mg/dL High 4.4-7.[address] [place] [address] [phone] Laboratory test 01/19/2019 [facility] Uric Acid 8.5 mg/dL High 4.4-7.[address] [place] [address] [phone] 1 Troponin-I testing on Plasma Separator Tubes (PST) has a known false positive rate of 0.20-0.40%. All positive troponins reflex immediately to secondary confirmatory testing. Using the Life360I 800 Access Immunoassay systems, the 99th percentile upper reference limit was demonstrated to be < 0.03 ng/mL. 2 Standard intensity warfarin therapeutic range: 2.0-3.0 High intensity warfarin therapeutic range: 2.5-3.5 3 Because ethnic data is not always [...] 5 Kidney failure <15 (or dialysis) 4 Troponin-I testing on Plasma Separator Tubes (PST) has a known false positive rate of 0.20-0.40%. All positive troponins reflex immediately to secondary confirmatory testing. Using the Queue-it DxI 800 Access Immunoassay systems, the 99th percentile upper reference limit was demonstrated to be < 0.03 ng/mL. 5 Please note: The following may produce a false positive D Dimer test: - Rheumatoid factor greater than 60 IU/ml - Plasma hemoglobin greater than 0.05 gm/dl - Bilirubin greater than 50 mg/dl - Lipids greater than 1000 mg/dl - FDP greater than 20 ug/ml 6 Because ethnic data is not always readily [...] 15-29 5 Kidney failure <15 (or dialysis) 7 Troponin-I testing on Plasma Separator Tubes (PST) has a known false positive rate of 0.20-0.40%. All positive troponins reflex immediately to secondary confirmatory testing. Using the Queue-it DxI 800 Access Immunoassay systems, the 99th percentile upper reference limit was demonstrated to be < 0.03 ng/mL. 8 Because ethnic data is not always [...] 5 Kidney failure <15 (or dialysis) 9 SEE RESULT BELOW Name: LYNN WANG : [address]: Thania Nation MD Acct: [id number] Unit: [id number] AGE: 78 Location: [facility] Re03/12/19 SEX: M Status: REG REF SPEC: [id number] KHUSHI: 03/12/[address]: Thania Nation MD REQ: [id number] RECD: 03/12/19 STATUS:COMP _ SOURCE: URINE SPDESC: ORDERED: Urine Culture Procedure Result Reported Site Urine Culture Final 03/15/19832 ML Organism 1 STAPHYLOCOCCUS EPIDERMIDIS [place] Count 50-75,000 (Many) CFU/ML 1. STAPHYLOCOCCUS EPIDERMIDIS [...] CONTINUED ON NEXT PAGE DEPARTMENT OF PATHOLOGY, [address] [place] [address] Phoenix Del Castillo M.D. Director [facility] # [id number] Specimen: [id number] Collected: 03/12/19 Received: 03/12/19 (Continued) Procedure Result Reported Site Urine Culture Final (continued) * These antibiotics are not available in the [facility] Formulary Contact the Microbiology Department for any additional antibiotic reporting. * ML - Main Lab . END OF REPORT DEPARTMENT OF PATHOLOGY, [address] [place] [address] Phoenix Del Castillo M.D. Director [facility] # [id number] 10 Because ethnic data is not always [...] [address]: Pat Beauchamp MD Acct: [id number] Unit: [id number] AGE: 78 Location: LAB Re01/22/19 SEX: M Status: REG REF SPEC: [id number] KHUSHI: 01/22/19-[address] [facility] [address]: aPt Beauchamp MD REQ: [id number] RECD: 01/22/19-2 STATUS: COMP LEYLAHR DR: Shae Moreno MD _ SOURCE: URINE SPDESC: ORDERED: Urine Culture Procedure Result Reported Site Urine Culture Final 01/24/19- 57 ML No growth of clinically significant organisms * ML - Main Lab . END OF REPORT DEPARTMENT OF PATHOLOGY, [address] [place] [id number] Phoenix Del Castillo M.D. Director [facility] # [id number] 12 REFERENCE VALUE <1.0 (Negative) 13 REFERENCE VALUE <1.0 (Negative) 14 REFERENCE VALUE <1.0 (Negative) 15 REFERENCE VALUE <1.0 (Negative) 16 REFERENCE VALUE <1.0 (Negative) 17 REFERENCE VALUE <1.0 (Negative) Test Performed by: [facility] [employer] [address] [place] [address] Squad Boss: Kishan Hernandez M.D. Ph.D.; CLIA# [id number] 18 Test Performed by: [facility] [place] [address] Squad Boss: Kishan Hernandez M.D. Ph.D.; CLIA# [id number] 19 13 mg/dL 20 1 mg/dL 21 1 mg/dL 22 1 mg/dL 23 1 mg/dL 24 RESULT: All fractions present, no apparent M-spike. 25 ADDITIONAL INFORMATION On 10/22/2016 the total protein assay method changed resulting in approximately a 15% increase in protein values. Test Performed by: [place] [address] Squad Boss: Kishan Hernandez M.D. Ph.D.; CLIA# [id number] Test Performed by: [address] [address] Squad Boss: Kishan Hernandez M.D. Ph.D.; CLIA# [id number] 26 RESULT: No apparent monoclonal protein on serum electrophoresis. Test Performed by: [facility] [place] [address] Squad Boss: Kishan Hernandez M.D. Ph.D.; CLIA# [id number] 27 REFERENCE VALUE 0.3300-1.94 28 REFERENCE VALUE 0.5700-2.63 29 Elevated free light chain ratios between 1.66 and 3.00 may occur due to polyclonal hypergammaglobulinemia or impaired renal clearance. An isolated increased free light chain ratio in this range should be interpreted with caution, and clinical correlation is recommended. REFERENCE VALUE 0.2600-1.65 Test Performed by: [place] [address] Squad Boss: Kishan Hernandez M.D. Ph.D.; CLIA# [id number] 30 Because ethnic data is not always readily [...] 15-29 5 Kidney failure <15 (or dialysis) 31 REFERENCE VALUE <1.0 (Negative) Test Performed by: [place] [address] Squad Boss: Kishan Hernandez M.D. Ph.D.; CLIA# [id number] 32 REFERENCE VALUE <0.4 (Negative) 33 REFERENCE VALUE <0.4 (Negative) Test Performed by: [place] [address] Squad Boss: Kishan Hernandez M.D. Ph.D.; CLIA# [id number] Procedures Date Code Description Status 04/07/2019 134335306 Diabetic Retinal Eye Exam Completed 04/06/2018 144071560 Diabetic Retinal Eye Exam Completed 06/19/2017 [id number] Diabetic Retinal Eye Exam Completed 02/20/2017 [id number] Colonoscopy Completed 05/23/2016 781740341 Diabetic Retinal Eye Exam Completed 05/18/2015 921678274 Diabetic Retinal Eye Exam Completed 04/09/2013 742682880 Diabetic Retinal Eye Exam Completed 12/19/2011 [id number] Colonoscopy Completed 12/23/2008 [id number] Colonoscopy Completed Medical Devices Description No Information Available Encounters Type Date Location Provider Dx Diagnosis Office Visit 05/05/2019 [facility] Leah Valderrama, M75.102 Unsp rotatr-cuff 8:00a at [facility]. tear/ruptr of left shoulder, not trauma M75.92 Shoulder lesion, unspecified, left shoulder Office Visit 05/03/2019 3:40p [facility] Internal Milena Funk, Z86.79 Personal history Medicine - N.P. of other diseases Ccmob of the circulatory system R60.0 Localized edema R06.02 Shortness of breath Office Visit 03/12/2019 9:30a [facility] Internal Thania Nation, E11.22 Type [facility] chronic kidney disease I12.9 Hypertensive chronic kidney disease w stg 1-4/unsp chr kdny J44.9 Chronic obstructive pulmonary disease, unspecified N18.9 Chronic kidney disease, unspecified E78.2 Mixed hyperlipidemia K21.0 Gastro-esophageal reflux disease with esophagitis Office Visit 02/01/2019 9:30a [facility] Nephrology Pat 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, adult type N18.9 Chronic kidney disease, unspecified Office Visit 01/19/2019 1:40p [facility] Internal Shae Charles MD H92.01 Otalgia , right Medicine - Ccmob ear E79.0 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 [facility]ob Office Visit 12/02/2018 1:40p [facility] Internal Shae Charles, E11.9 Type 2 diabetes Medicine - mellitus without Ccmob complications Assessments Date Code Description Provider 05/19/2019 J44.9 Chronic obstructive pulmonary disease, Ashley [...] M75.92 Shoulder lesion, unspecified, left shoulder Leah Valderrama M.D. 05/03/2019 Z86.79 Personal history of other diseases of the Milena Blessing, N.P. circulatory system 05/03/2019 R60.0 Localized edema [...] Charles MD complications Plan of Treatment Future Appointment(s):11/16/2019 10:45 am - Ashley Hammond MD at [facility]06/11/2019 10:40 am - Milena Funk, N.P. at [facility] 10[facility]00 am - Shae Charles [facility] at [facility] - Ashley Hammond MDJ44.9 Chronic obstructive pulmonary disease, unspecifiedFollow up:6 qftraxE10.99 Other pulmonary embolism without acute cor midpdzjtcE08.02 TaivmyrcwD05.33 Obstructive sleep apnea (adult ) (pediatric) Functional Status Description No Information Available Mental Status Description No Information Available Referrals Refer to Reason for Referral Status Appt Date [facility] Closed 12/10/[address] [place] [address] [address] [place] [address] [phone]
--- OUTSIDE RECORDS SUMMARY | 2019-06-24 21:28 | XMS REPORT | Continuity of Care Document ---
:1940 External Reference #:[id number] Author Name Barbie Thakur MD (transmitted by agent of provider Nessa Champagne) Address [address] [place] [address] Care Team Providers Name Role Phone Keegan Lujan MD - Psychiatry Care Team Information Agency Trainer [phone] Ruddy Ames M.D. - Rheumatology Care Team Information Agency Trainer Luis Daniel Jacob MD - Feed Blender Care Team Information Agency Trainer Iris Patel MD - Vascular Surgery Care Team Information Agency Trainer Vika Pierce FNP-Cde - Family Care Team Information Agency Trainer Ashley Hammond MD - Pulmonary Care Team Information Agency Trainer [phone] Disease Saturnino Moreno MD - Urology Care Team Information Agency Trainer [phone] Shae Charles M.D. - Family Medicine Care Team Information Agency Trainer [phone] Problems Active Problems Provider Date Gout Germain [...] a former Unknown smoker Smoking Status Reviewed: 06/08/19 Patient is a former smoker Exercise Type/Frequency [...] HCL take 1 tablet by 180tabs E11.9 Sahe Charles MD 09/01/2018 500mg mouth twice a [...] CPT Code Status Date Vaccine Lot # [id number] Given 03/22/2019 Influenza Virus Vaccine, Quadrivalent, Split, Preservative Free 64237 Given 01/14/2018 Influenza Virus Vaccine, Quadrivalent, Split, [id number] Preservative Free 12968 Given 02/21/2017 Influenza Virus Vaccine, Quadrivalent, Split, [id number] Preservative Free 73918 Given 01/29/2016 Influenza Virus Vaccine, Quadrivalent, Split, [id number] Preservative Free [id number] Given 03/28/2015 Fluvirin Im 3Yrs And Older 01098 Given 03/08/2015 Influenza Virus Vaccine, Quadrivalent, Split, [id number] Preservative Free 01089 Given 09/15/2014 Pneumococcal Conjugate Vaccine 13 Valent For [id number] Intramuscular Use 09472 Given 03/14/2014 Flu Vaccine Split Virus Preservative Free For [id number] Indiv 3Yr Older 15091 Given 03/11/2013 Flu Vaccine Split Virus Preservative Free For [id number] Indiv 3Yr Older Q2037 Given 03/17/2012 Fluvirin Im 3Yrs And Older [id number] 09636 Given 11/14/2011 Pneumonia Vaccine [id number] 93926 Given 04/02/2011 Influenza Virus 3Yrs & Over [id number] 73282 Given 02/10/2010 Influenza Virus 3Yrs & Over 58418 Given 05/25/2009 Influenza Virus 3Yrs & Over [id number] 89265 Given 05/03/2009 Influenza Virus Vaccine, Pandemic Formulation [id number] 5P 92445 Given 05/03/2009 Administration Swine Flu Shot 51686 Given 05/13/2008 Influenza Virus 3Yrs & Over 20852 Given 05/13/2008 Influenza Virus 3Yrs & Over [id number] 38485 Given 12/18/2007 Zoster (Zostavax) 40575 Given 07/16/2006 Tetanus And Diptheria (Td) For Adult Use Preservative Free 87135 Given 03/26/2006 Pneumonia Vaccine Vital Signs Date Vital Result Comment 06/08/2019 2:11pm Height 71 inches 5'11" Weight 287.00 lb Heart Rate 75 /min BP Systolic Sitting 124 mmHg L arm BP Diastolic Sitting 76 mmHg L arm O2 % BldC Oximetry 90 % BMI (Body Mass Index) 40.0 kg/m2 05/19/2019 11:16am Height 71 inches 5'11" Weight 286.25 lb Heart Rate 82 /min BP Systolic Sitting 124 mmHg Lue large cuff BP Diastolic Sitting 78 mmHg Lue large cuff O2 % BldC Oximetry 95 % On Ra BMI (Body Mass Index) 39.9 kg/m2 Results Test Acquired Date Facility Test Result H/L Range Note Neph Routine 06/03/2019 [facility] Total Protein < 4 mg/dL [address] [place] [address] [phone] Creatinine Random Urine 25.59 mg/dL CBC Auto 06/03/2019 [facility] White Blood 10.4 10^3/uL Normal 3.5-10.[address] [place] [address] [phone] Red Blood Count 5.14 10^6/uL Normal 4.18-5.48 [...] Blood Cells % 0.2 Basic Metabolic 06/03/2019 [facility] Sodium 140 mmol/L Normal 135-145 Panel [facility][note 3] [place] [address] [phone] Potassium 4.6 mmol/L Normal 3.5-5.0 Chloride 99 mmol/L Low 101-111 Co2 Carbon Dioxide 34 mmol/L High 22-32 Anion Gap 7 mmol/L Normal 2-11 Glucose 102 mg/dL High 70-100 Blood Urea Nitrogen 45 mg/dL High 6-24 Creatinine 1.53 mg/dL High 0.67-1.17 BUN/Creatinine Ratio 29.4 High 8-20 Calcium 9.4 mg/dL Normal 8.6-10.3 Egfr Non- 44.4 >60 Egfr 53.7 >60 1 Urinalysis Profile 06/03/2019 [facility] Urine Color Straw [address] [place] [address] [phone] Urine Appearance Clear Urine Specific [place] 1.008 Low 1.010-1.030 Urine pH 5.0 Normal [...] Present Abnormal Absent Urine Culture And 06/03/2019 [facility] Urine SEE RESULT [address] [place] [address] [phone] Laboratory test 05/09/2019 [facility] Troponin-I 0.01 ng/mL < 0.03 [address] (TnI) [place] [address] [phone] CBC Auto Diff 05/09/2019 [facility] White Blood 11.6 High 3.5- [address] Count 10^3/uL 0.8 [place] [address] [phone] Red Blood Count 5.08 10^6/uL Normal 4.18-5.48 [...] Red Blood Cells % 0.0 Inr/Protime 05/09/2019 [facility] Inr 1.48 High 0.82-1.[address] [place] [address] [phone] Comp Metabolic 05/09/2019 [facility] Sodium 137 mmol/L Normal 135-[address] [place] [address] [phone] Potassium 4.1 mmol/L Normal 3.5-5.0 Chloride 99 [...] Egfr 59.0 >60 5 Laboratory test 05/09/2019 [facility] Troponin-I (TnI) 0.01 ng/ mL <0.03 [address] [place] [address] [phone] D Dimer Quantitative > 1050 ng/mL High Less Than 230 7 Laboratory test 05/09/2019 [facility] B-Type 21 pg/mL <=[address] [place] [address] Peptide BNP [phone] Comp Metabolic 05/06/2019 [facility] Sodium 141 Normal 135- [address] mmol/[place] [address] [phone] Potassium 4.8 mmol/L Normal 3.5-5.0 Chloride 101 [...] Egfr 52.9 >60 8 CBC Auto 05/06/2019 [facility] White Blood 11.5 10^3/uL High 3.5-10.[address] [place] [address] [phone] Red Blood Count 4.83 10^6/uL Normal 4.18-5.48 [...] Red Blood Cells % 0.0 Laboratory 05/06/2019 [facility] B-Type 21 pg/mL <=100 test finding [address] [place] [address] Peptide BNP [phone] Laboratory 04/15/2019 [facility] Troponin-I 0.01 <0.03 9 test finding [address] (TnI) ng/[place] [address] [phone] CBC Auto Diff 04/15/2019 [facility] White Blood 9.5 Normal 3.5 -10.[address] Count 10^3/uL [place] [address] [phone] Red Blood Count 5.02 10^6/uL Normal 4.18-5.48 [...] Blood Cells % 0.1 Comp Metabolic 04/15/2019 [facility] Sodium 140 mmol/L Normal 135-[address] [place] [address] [phone] Potassium 4.6 mmol/L Normal 3.5-5.0 Chloride 100 [...] Egfr 55.1 >60 10 Laboratory test 03/12/2019 [facility] In House Hemoglobin A1c 6.4 5-7 finding Urine Culture And 03/12/2019 [facility] Urine Culture SEE RESULT [address] [place] [address] [phone] Urine Microalbumin 03/12/2019 [facility] Ur Microalbumin 48.2 mg /L Random [address] (mg/L) [place] [address] [phone] Urine Creatinine 81.45 mg/dL Urine Microalbumin/Creatinine 59.1 High <31 Basic Metabolic 03/12/2019 [facility] Sodium 140 mmol/L Normal 135-[address] [place] [address] [phone] Potassium 4.4 mmol/L Normal 3.5-5.0 Chloride 102 mmol/L Normal 101-111 Co2 Carbon Dioxide 30 mmol/L Normal 22-32 Anion Gap 8 mmol/L Normal 2-11 Glucose 103 mg/dL High 70-100 Blood Urea Nitrogen 49 mg/dL High 6-24 Creatinine 1.37 mg/dL High 0.67-1.17 BUN/Creatinine Ratio 35.8 High 8-20 Calcium 9.8 mg/dL Normal 8.6-10.3 Egfr Non- 50.5 >60 Egfr 61.1 >60 12 Urinalysis Profile 03/12/2019 [facility] Urine Color Yellow [address] [place] [address] [phone] Urine Appearance Clear Urine Specific [place] 1.015 Normal 1.010-1.030 Urine pH 5.0 Normal [...] Present Abnormal Absent Urine Culture And 01/22/2019 [facility] Urine Culture SEE RESULT [address] [place] [address] [phone] Teresa Igg AB Reflex 01/22/2019 [facility] SS-A/Ro <0.2 U [address] [place] [address] [phone] SS-B/La Antibody <0.2 U 15 Sm ([place]) IgG Antibody <0.2 U 16 AIRLINE RADIO OPERATOR Antibody, IgG 0.3 U 17 Scl-70 (Scleroderma) Antibody <0.2 U 18 Rebecca-1 Antibody <0.2 U 19 Laboratory test 01/22/2019 [facility] Total Protein 18 mg/dL finding [address] [place] [address] [phone] Immunoglobulin A (Iga) 204 mg/dL 61 - 356 20 Urine Protein Elctrophoresis 01/22/2019 [facility] Albumin 75 % 21 (RDM) [address] [place] [address] [phone] Alpha-1 Globulin 4 % 22 Alpha-2 Globulin 6 % 23 Beta Globulin 8 % 24 Gamma Globulin 8 % 25 Albumin/Globulin Ratio 2.99 % Impression See Comment 26 Total Protein(Pep) Urine 17 mg/dL 27 Laboratory test 01/22/2019 [facility] Urine Creatinine 46.80 mg/ dL finding [address] [place] [address] [phone] Urinalysis 01/22/2019 [facility] Urine Color Yellow Profile [address] [place] [address] [phone] Urine Appearance Clear Urine Specific [place] 1.016 Normal 1.010-1.030 Urine pH 6.0 Normal 5-9 Urine Urobilinogen Negative Negative Urine Ketones Negative Negative Urine Protein Negative Negative Urine Leukocytes Trace Abnormal Negative Urine Blood 1+ Abnormal Negative Urine Nitrite Negative Negative Urine Bilirubin Negative Negative Urine Glucose Negative Negative Urine White Blood Cell 1+(6-10/hpf) Abnormal Absent Urine Red Blood Cell Trace(0-2/hpf) Absent Urine Bacteria Absent Absent Total Protein 24HR 01/22/2019 [facility] Urine Collection Time 24 hr Urine [address] [place] [address] [phone] Urine Total Volume 3150 mL Urine Total Protein/24HR 220 mg/24Hr High 0-165 Protein 01/22/2019 [facility] Total 6.4 g/dL 6.3 - Electrophoresis [address] Protein(Pep) 7.9 [place] [address] [phone] Albumin 3.1 g/dL Abnormal 3.4-4.7 Alpha-1 Globulin 0.3 g/dL 0.1-0.3 Alpha-2 Globulin 1.2 g/dL Abnormal 0.6-1.0 Beta Globulin 0.9 g/dL 0.7-1.2 Gamma Globulin 0.9 g/dL 0.6-1.6 Albumin/Globulin Ratio 0.93 Impression See Comment 28 [place]/Lambda Free 01/22/2019 [facility] [place] Free 5.71 mg/dL Abnormal [address] [place] [address] [phone] Lambda Free Light Chain 2.65 mg/dL Abnormal 30 [place]/Lambda Free Light Chain 2.15 Abnormal 31 Creatinine Clearance 01/22/2019 [facility] Urine Collection [address] [place] [address] [phone] Urine Total Volume 3150 mL Creatinine, Serum 1.26 mg/dL High 0.51-0.95 Creatinine Clearance 81 mL/min Low 97-137 Comp Metabolic 01/22/2019 [facility] Sodium 137 mmol/L Normal 135-[address] [place] [address] [phone] Potassium 4.4 mmol/L Normal 3.5-5.0 Chloride 100 [...] 69.2 >60 32 Hepatitis C Antibody 01/22/2019 [facility] HCV Index 0.02 s/c [address] [place] [address] [phone] Hepatitis C Antibody Negative Negative Laboratory test 01/22/2019 [facility] Creatine 48 U/L Normal 10-223 finding [address] [facility] Kinase(CK) [place] [address] [phone] Glomerular Basement Membrane <0.2 U 33 Hepatitis B Surface Ag Nonreactive Nonreactive CBC Auto 01/22/2019 [facility] White Blood 9.0 10^3/uL Normal 3.5-10.[address] [place] [address] [phone] Red Blood Count 5.16 10^6/uL Normal 4.18-5.48 [...] Cells % 0.0 Anca Panel For 01/22/2019 [facility] Myeloperoxidase AB < 0.2 U [address] [place] [address] [phone] Proteinase 3 AB < 0.2 U 35 Laboratory test 01/22/2019 [facility] Uric Acid 8.4 mg/dL High 4.4-7.[address] [place] [address] [phone] Laboratory test 01/19/2019 [facility] Uric Acid 8.5 mg/dL High 4.4-7.[address] [place] [address] [phone] 1 Because ethnic data is not always [...] (or dialysis) 2 SEE RESULT BELOW Name: JESSICAHUSSEIN NASHAMBAR Chance : [address]: Pat Beauchamp MD Acct: [id number] Unit: [id number] AGE: 79 Location: [facility] Re06/03/19 SEX: M Status: REG REF SPEC: [id number] KHSUHI: 06/03/[address]: Pat Beauchamp MD REQ: [id number] RECD: 06/03/19 STATUS: COMP OTHR DR: Shae Charles MD _ SOURCE: URINE SPDESC: ORDERED: Urine Culture Procedure Result Reported Site Urine Culture Final 06/06/19- 1451 ML No growth of clinically significant organisms * ML - Main Lab . END OF REPORT DEPARTMENT OF PATHOLOGY, [address] [place] [address] Phoenix Del Castillo M.D. Director [facility] # [id number] 3 Troponin-I testing on Plasma Separator Tubes (PST) has a known false positive rate of 0.20-0.40%. All positive troponins reflex immediately to secondary confirmatory testing. Using the [employer] [facility] DxI 800 Access Immunoassay systems, the 99th [...] immediately to secondary confirmatory testing. Using the [employer] DxI 800 Access Immunoassay systems, the 99th [...] immediately to secondary confirmatory testing. Using the [employer] [facility] DxI 800 Access Immunoassay systems, the 99th [...] [address]: Thania Nation MD Acct: [id number] Unit: [id number] AGE: 78 Location: [facility] Re03/12/19 SEX: M Status: REG REF SPEC: [id number] KHUSHI: 03/12/[address]: Thania Nation MD REQ: [id number] RECD: 03/12/19 STATUS:COMP _ SOURCE: URINE SPDESC: ORDERED: Urine Culture Procedure Result Reported Site Urine Culture Final 03/15/19832 ML Organism 1 STAPHYLOCOCCUS EPIDERMIDIS [place] Count 50-75,000 (Many) CFU/ML 1. STAPHYLOCOCCUS EPIDERMIDIS [...] CONTINUED ON NEXT PAGE DEPARTMENT OF PATHOLOGY, [address] [place] [address] Phoenix Del Castillo M.D. Director [facility] # [id number] Specimen: [id number] Collected: 03/12/19 Received: 03/12/19 (Continued) Procedure Result Reported Site Urine Culture Final (continued) * These antibiotics are not available in the [facility] Formulary Contact the Microbiology Department for any additional antibiotic reporting. * ML - Main Lab . END OF REPORT DEPARTMENT OF PATHOLOGY, [address] [place] [address] Phoenix Del Castillo M.D. Director [facility] # [id number] 12 Because ethnic data is not always [...] [address]: Pat Beauchamp MD Acct: [id number] Unit: [id number] AGE: 78 Location: LAB Re01/22/19 SEX: M Status: REG REF SPEC: [id number] KHUSHI: 01/22/19-[address] [facility] [address]: Pat Beauchamp MD REQ: [id number] RECD: 01/22/19 STATUS: VERENA HAY DR: Shae Moreno MD _ SOURCE: URINE SPDESC: ORDERED: Urine Culture Procedure Result Reported Site Urine Culture Final 01/24/19- 0931 ML No growth of clinically significant organisms * ML - Main Lab . END OF REPORT DEPARTMENT OF PATHOLOGY, [address], [place], [place] [address] Phoenix Del Castillo M.D. Director [facility] # [id number] 14 REFERENCE VALUE <1.0 (Negative) 15 REFERENCE VALUE <1.0 (Negative) 16 REFERENCE VALUE <1.0 (Negative) 17 REFERENCE VALUE <1.0 (Negative) 18 REFERENCE VALUE <1.0 (Negative) 19 REFERENCE VALUE <1.0 (Negative) Test Performed by: [facility] [place] [address] Retail Sales Consultant: Kishan Hernandez M.D. Ph.D.; CLIA# [id number] 20 Test Performed by: [facility] [place] [address] Retail Sales Consultant: Kishan Hernandez M.D. Ph.D.; CLIA# [id number] 21 13 mg/dL 22 1 mg/dL 23 1 mg/dL 24 1 mg/dL 25 1 mg/dL 26 RESULT: All fractions present, no apparent M-spike. 27 ADDITIONAL INFORMATION On 10/22/2016 the total protein assay method changed resulting in approximately a 15% increase in protein values. Test Performed by: [facility] [place] [address] Retail Sales Consultant: Kishan Hernandez M.D. Ph.D.; CLIA# [id number] Test Performed by: [facility] - [address] [address] Retail Sales Consultant: Kishan Hernandez M.D. Ph.D.; CLIA# [id number] 28 RESULT: No apparent monoclonal protein on serum electrophoresis. Test Performed by: [facility] [place] [address] Retail Sales Consultant: Kishan Hernandez M.D. Ph.D.; CLIA# [id number] 29 REFERENCE VALUE 0.3300-1.94 30 REFERENCE VALUE 0.5700-2.63 31 Elevated free light chain ratios between 1.66 and 3.00 may occur due to polyclonal hypergammaglobulinemia or impaired renal clearance. An isolated increased free light chain ratio in this range should be interpreted with caution, and clinical correlation is recommended. REFERENCE VALUE 0.2600-1.65 Test Performed by: [facility] [place] [address] Retail Sales Consultant: Kishan Hernandez M.D. Ph.D.; CLIA# [id number] 32 Because ethnic data is not always [...] REFERENCE VALUE <1.0 (Negative) Test Performed by: [place] [address] Retail Sales Consultant: Kishan Hernandez M.D. Ph.D.; CLIA# [id number] 34 REFERENCE VALUE <0.4 (Negative) 35 REFERENCE VALUE <0.4 (Negative) Test Performed by: [place] [address] Retail Sales Consultant: Kishan Hernandez M.D. Ph.D.; CLIA# [id number] Procedures Date Code Description Status 04/07/2019 342474753 Diabetic Retinal Eye Exam Completed 04/06/2018 263992712 Diabetic Retinal Eye Exam Completed 06/19/2017 469775326 Diabetic Retinal Eye Exam Completed 02/20/2017 [id number] Colonoscopy Completed 05/23/2016 582738463 Diabetic Retinal Eye Exam Completed 05/18/2015 [id number] Diabetic Retinal Eye Exam Completed 04/09/2013 883826465 Diabetic Retinal Eye Exam Completed 12/19/2011 [id number] Colonoscopy Completed 12/23/2008 45983222 Colonoscopy Completed Medical Devices Description No Information Available Encounters Type Date Location Provider Dx Diagnosis Office Visit 05/19/2019 [facility]ology And Andrey Miles44.9 Chronic obstructive 11:30a [facility] pulmonary dannielle, Lip Reading Teacher unspecified I26.99 Other pulmonary embolism without acute cor pulmonale R09.02 Hypoxemia G47.33 Obstructive sleep apnea (adult) (pediatric) Office Visit 05/05/2019 Yanique Lynn M75.102 Unsp rotatr-cuff 8:00a Orthopedics at [facility] Sanchez. tear/ruptr of [place] left shoulder, not trauma M75.92 Shoulder lesion, unspecified, left shoulder Office Visit 05/03/2019 3:40p [facility] Internal Milena Funk, Z86.79 Personal history Medicine - N.P. 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, adult type N18.9 Chronic kidney disease, unspecified Office Visit 01/19/2019 1:40p [facility] Internal Shae Charles MD H92.01 Otalgia , right Medicine - [facility] ear E79.0 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 H92.01 Otalgia, [facility] Medicine - Belem Baugh M.D. ear Assessments Date Code Description Provider 06/08/2019 N18.3 Chronic kidney disease, stage 3 (moderate) Barbie Thakur MD 05/19/2019 J44.9 Chronic obstructive pulmonary disease, Ashley [...] H92.01 Otalgia, right ear Mukesh Baugh M.D. Plan of Treatment Future Appointment(s):12/08/2019 8:00 am - Barbie Thakur MD at [facility] Rlmerwjkev33 /21/2020 10:45 am - Ashley Hammond MD at [facility]06/11/2019 10:40 am - Milena Funk, N.P. at [facility] am - Shae Charles MD at [facility] Internal Medicine - [facility]06/08/2019 - Barbie Thakur MDN18.3 Chronic kidney disease, stage 3 (moderate)Follow up:6 months Functional Status Description No Information Available Mental Status Description No Information Available Referrals Description No Information Available
[2019-06-24 22:49] LABS: Hematocrit 41 % (42-52); Hemoglobin 14.2 g/dL (14.0-18.0); Mean Corpuscular HGB Conc 35 g/dL (31-36); Mean Corpuscular Hemoglobin 30 pg (27-31); Mean Corpuscular Volume 86 fL (80-94); Mean Platelet Volume 7.8 fL (7.4-10.4); Platelet Count 214 10^3/uL (150-450); Red Blood Count 4.83 10^6 /uL (4.18-5.48); Red Cell Distribution Width 16 % (10-15); White Blood Count 9.5 10^3/uL (3.5-10.8)
[2019-06-24 22:57] LABS: INR 1.07 (0.82-1.09)
[2019-06-24 23:06] LABS: Albumin 3.8 g/dL (3.2-5.2); Albumin/Globulin Ratio 1.3 (1-3); BUN/Creatinine Ratio 34.8 (8-20); Calcium 9.5 mg/dL (8.6-10.3); EGFR Non-African American 48.7 (>60); Potassium 4.1 mmol/L (3.5-5.0); Total Bilirubin 0.3 mg/dL (0.2-1.0); Total Protein 6.8 g/dL (6.4-8.9)
[2019-06-24 23:07] LABS: Troponin I 0.01 ng/mL (<0.03)
[2019-06-24 23:22] LABS: ABS Basophils 0.1 10^3/ul (0-0.2); ABS Eosinophils 0.3 10^3/ul (0-0.6); ABS Lymphocytes 1.2 10^3/ul (1.0-4.8); ABS Monocytes 0.7 10^3/ul (0-0.8); ABS Neutrophils 7.1 10^3/ul (1.5-7.7); Eosinophil % 3.4 %; Lymphocyte % 13.2 %
[2019-06-25] MEDS ORDERED: Albuterol/Ipratropium NEB.SOL* Albuterol 2.5 MG/Ipratropium 0.5 MG 3 ML INH ONE (03:24)
[2019-06-25] MEDS ORDERED: Iodixanol* (CONTRAST) 320 MG/ML 100 ML SDV IV ONE (03:40)
[2019-06-25] MEDS ORDERED: Piperacillin/Tazobac ADVAN(*) 3.375 GM in NS 0.9% 100 ML* 100 ML IVPB ONE (05:56)
--- NOTE | 2019-06-25 06:09 | ED ---
HPI Cardiac - HPI Summary HPI Summary: Patient is a 79 y/o M w/ Hx of PE who presents to [facility] with complaints of midsternal CP and SOB. He states that he had a PE in September 2018, patient was placed on Eliquis for ninety days and then taken off of this medication. This past April 2019, patient had another PE and was placed on Eliquis once more; he continues to take this medication. Patient reports that he experienced onset of swelling to his right foot two weeks ago. He states that the swelling has decreased somewhat, but notes that 1.5 weeks ago he had onset of SOB. Patient states that he had onset of chest pain two days ago and experienced a worsening of Sx today. Patient notes that this presentation of Sx is slightly dissimilar to previous PE episodes as he had experienced severe neck pain during his previous PEs. Fever, nausea, and diaphoresis are denied but he does note the presence of some cough. Patient wears 2 L o2 at night and has a CPAP machine as well. He has portable oxygen tanks to use as need. Patient also has inhalers and nebulizer machine. Home medications and allergies are reviewed. - History of Current Complaint Chief Complaint: EDChestPainROMI Stated Complaint: CHEST PAIN PER PT Time Seen by Provider: 06/25/19 02:31 Hx Obtained From: Patient Onset/Duration: Started Days Ago, Still Present, Worse Since Timing: Constant, Lasting Days Current Severity: Moderate Pain Intensity: 5 Pain Scale Used: 0-10 Numeric Chest Pain Location: Mid Sternal Associated Signs and Symptoms: Positive: Chest Pain, Shortness of Breath, Swelling, Cough. Negative: Fever, Diaphoresis, Nausea - Additional Pertinent History Primary Care Physician: LEONARDO - Allergy/Home Medications Allergies/Adverse Reactions: Allergies Allergy/AdvReac Type Severity Reaction Status Date / Time bacitracin Allergy Rash Verified 06/25/19 02:54 [From Neosporin ([id number])] ibuprofen Allergy excessive Verified 06/25/19 02:54 thirst levofloxacin [From Levaquin] Allergy tendonitis Verified 06/25/19 02:54 neomycin Allergy Rash Verified 06/25/19 02:54 [From Neosporin ([id number])] polymyxin B Allergy Rash Verified 06/25/19 02:54 [From Neosporin ([id number])] yellow jacket Allergy Severe Anaphylatic Uncoded 06/25/19 02:54 Shock Home Medications: Home Medications Metoprolol Tartrate TAB* [Lopressor TAB*] 25 mg PO DAILY 07/01/12 [History Confirmed 06/25/19] Multivitamin [Multivitamins] 1 tab PO DAILY 07/01/12 [History Confirmed 06/25/19 ] Montelukast Sodium TAB* [Singulair 10 MG TAB*] 10 mg PO QPM 12/28/13 [History Confirmed 06/25/19] Albuterol HFA INHALER* [Ventolin HFA Inhaler*] 1 - 2 puff INH Q4H PRN 02/13/17 [ History Confirmed 06/25/19] Dutasteride [Avodart] 0.5 mg PO DAILY 02/13/17 [History Confirmed 06/25/19] Acetaminophen [Acetaminophen Extra Strength] 1,000 mg PO TID PRN 05/27/18 [ History Confirmed 06/25/19] Colchicine* [Colcrys*] 0.6 mg PO .BID D1,DAILY X2 DAY PRN 05/27/18 [History Confirmed 06/25/19] EPINEPHrine [Epipen 2-Jl] 0.3 mg IM ONCE PRN 05/27/18 [History Confirmed ] Omeprazole 40 mg PO DAILY 05/27/18 [History Confirmed 06/25/19] Duloxetine HCl [Cymbalta] 60 mg PO DAILY 06/29/18 [History Confirmed 06/25/19] Mupirocin 2% OINT* [Bactroban 2 % Oint*] 1 applic TOPICAL BID PRN 06/29/18 [ History Confirmed 06/25/19] Torsemide 20 mg PO DAILY 07/07/18 [History Confirmed 06/25/19] Oxygen 6 lf unit BOTH NARES .BEDTIME & EXERTION PRN #0 10/14/18 [Rx Confirmed ] Apixaban* [Eliquis*] 5 mg PO BID 11/26/18 [History Confirmed 06/25/19] Icosapent Ethyl [Vascepa] 2 cap PO BID 11/26/18 [History Confirmed 06/25/19] Metformin HCl 500 mg PO BID 11/26/18 [History Confirmed 06/25/19] Hyoscyamine Sulfate 0.125 mg SL TID PRN 06/25/19 [History Confirmed 06/25/19] PMH/Surg Hx/FS Hx/Imm Hx Endocrine/Hematology History: Reports: Hx Anticoagulant Therapy - eliquis, Hx Diabetes - TYPE 2 Denies: Hx Systemic Lupus Erythematosus Cardiovascular History: Reports: Hx Aneurysm - repaired AAA, repaired x 2 , Hx Hypercholesterolemia, Hx Hypertension - ON DAILY MEDS, Other Cardiovascular Problems/Disorders Denies: Hx Congestive Heart Failure, Hx Pacemaker/ICD Respiratory History: Reports: Hx Asthma - ?, Hx Chronic Obstructive Pulmonary Disease (COPD), Hx Pulmonary Embolism, Hx Sleep Apnea, Other Respiratory Problems/Disorders - USES OXYGEN AT 4 L WITH CPAP AT NIGHT GI History: Reports: Hx Gastroesophageal Reflux Disease - AFFECTS VOCAL CORDS, Other GI Disorders - hx AAA History: Reports: Hx Benign Prostatic Hyperplasia, Other Problems/ Disorders - enlarged prostate Denies: Hx Dialysis, Hx Renal Disease Musculoskeletal History: Reports: Hx Tendonitis - LEFT SHOULDER AND ARM Denies: Hx Rheumatoid Arthritis Sensory History: Reports: Hx Cataracts - BILATERAL, Hx Contacts or Glasses - GLASSES Denies: Hx Hearing Aid Opthamlomology History: Reports: Hx Cataracts - BILATERAL, Hx Contacts or Glasses - GLASSES Neurological History: Reports: Hx Headaches, Hx Migraine - HX OF MIGRAINES IN THE PAST (NONE SINCE USING CPAP Psychiatric History: Reports: Hx Depression Denies: Hx Panic Disorder - Cancer History Hx Chemotherapy: No - Surgical History Surgery Procedure, Year, and Place: 2004 aaa. hernia repair- WITH MESH. 1987 polyps larynx benign. [address] [facility] [place] & 2014- bilat EYE [place]AR[place] [facility] [place] 2019 AAA repair, Dr. Patel, [facility]. 2013 POPITEAL ARTERY AN. REPAIR [facility]. Hx Anesthesia Reactions: No Infectious Disease History: No Infectious Disease History: Denies: Traveled Outside the [place] in Last 30 Days - Family History Known Family History: Positive: Cardiac Disease, Other - aortic aneurysm. - Social History Alcohol Use: None Hx Substance Use: No Substance Use Type: Reports: None Hx Tobacco Use: Yes - quit 1994 Smoking Status (MU): Former Smoker Type: Cigarettes Amount Used/How Often: 2 PPD X 20 YEARS Have You Smoked in the Last Year: No Review of Systems - ROS Summary Review of Systems Summary: Home Medications Medication Instructions Recorded Confirmed Type Metoprolol Tartrate TAB* 25 mg PO DAILY 07/01/12 06/25/19 History [Lopressor TAB*] Multivitamin [Multivitamins] 1 tab PO DAILY 07/01/12 06/25/19 History Montelukast Sodium TAB* [Singulair 10 mg PO QPM 12/28/13 06/25/19 History 10 MG TAB*] Albuterol HFA INHALER* [Ventolin 1 - 2 puff INH Q4H PRN 02/13/17 06/25/19 History HFA Inhaler*] Dutasteride [Avodart] 0.5 mg PO DAILY 02/13/17 06/25/19 History Acetaminophen [Acetaminophen Extra 1,000 mg PO TID PRN 05/27/18 06/25/19 History Strength] Colchicine* [Colcrys*] 0.6 mg PO .BID D1,DAILY X2 DAY PRN 05/27/18 06/25/19 History EPINEPHrine [Epipen 2-Jl] 0.3 mg IM ONCE PRN 05/27/18 06/25/19 History Omeprazole 40 mg PO DAILY 05/27/18 06/25/19 History Duloxetine HCl [Cymbalta] 60 mg PO DAILY 06/29/18 06/25/19 History Mupirocin 2% OINT* [Bactroban 2 % 1 applic TOPICAL BID PRN 06/29/18 06/25/19 History Oint*] Torsemide 20 mg PO DAILY 07/07/18 06/25/19 History Oxygen 6 lf unit BOTH NARES .BEDTIME & 10/14/18 06/25/19 Rx EXERTION PRN #0 Apixaban* [Eliquis*] 5 mg PO BID 11/26/18 06/25/19 History Icosapent Ethyl [Vascepa] 2 cap PO BID 11/26/18 06/25/19 History Metformin HCl 500 mg PO BID 11/26/18 06/25/19 History Hyoscyamine Sulfate 0.125 mg SL TID PRN 06/25/19 06/25/19 History Negative: Fever, Skin Diaphoresis Positive: Chest Pain Positive: Shortness Of Breath, Cough Negative: Nausea Positive: Edema All Other Systems Reviewed And Are Negative: Yes Physical Exam - Summary Physical Exam Summary: General: Well-developed, Morbidly obese male. No acute distress. HEENT: Normocephalic, Atraumatic. Eyes: Conjuctiva normal, PERRL. Oropharynx: Clear, mucous membranes moist, (-) exudates. Neck: Soft, FROM, (-) lymphadenopathy, (-) thyromegaly, (-) JVD. Cardiovascular: Normal sinus rhythm, (-) murmur. Lungs: Equal breath sounds, prolonged expiration, bibasilar crackles Abdomen: Soft, non-tender, non-distended, (-) organomegaly, normal bowel sounds. Back: (-) CVA tenderness Extremities: 1+ BLE edema Skin: Warm, dry, (-) rash. Neuro: Alert and oriented x3, moves all extremities equally. No ataxia. No gait disturbance. No sensory deficit. Normal strength, normal sensation. Psychiatric: Mood normal, affect normal. Triage Information Reviewed: Yes Vital Signs On Initial Exam: Initial Vitals Temp Pulse Resp BP Pulse Ox 97.7 F 86 20 142/82 90 06/24/19 21:09 06/24/19 21:09 06/24/19 21:09 06/24/19 21:09 06/24/19 21:09 Vital Signs Reviewed: Yes Procedures - Sedation Patient Received Moderate/Deep Sedation with Procedure: No Diagnostics - Vital Signs Vital Signs Temp Pulse Resp BP Pulse Ox 06/25/19 03:30 66 14 96 06/25/19 03:01 69 16 138/92 94 06/25/19 03:00 68 20 92 06/25/19 02:31 72 25 149/90 89 06/25/19 02:30 75 19 84 06/25/19 00:31 98.3 F 73 20 123/96 90 06/24/19 21:09 97.7 F 86 20 142/82 90 - Laboratory Lab Results: Lab Results 06/24/19 06/24/19 06/24/19 Range/Units 22:41 22:41 22:41 WBC 9.5 (3.5-10.8) 10^3/uL RBC 4.83 (4.18-5.48) 10^6 /uL Hgb 14.2 (14.0-18.0) g/dL Hct 41 L (42-52) % MCV 86 (80-94) fL MCH 30 (27-31) pg MCHC 35 (31-36) g/dL RDW 16 H (10-15) % Plt Count 214 (150-450) 10^3/uL MPV 7.8 (7.4-10.4) fL Neut % (Auto) 75.2 % Lymph % (Auto) 13.2 % [place] % (Auto) 7.1 % Eos % (Auto) 3.4 % Baso % (Auto) 1.1 % Absolute Neuts (auto) 7.1 (1.5-7.7) 10^3/ul Absolute Lymphs (auto) 1.2 (1.0-4.8) 10^3/ul Absolute Monos (auto) 0.7 (0-0.8) 10^3/ul Absolute Eos (auto) 0.3 (0-0.6) 10^3/ul Absolute Basos (auto) 0.1 (0-0.2) 10^3/ul Absolute Nucleated RBC 0.0 10^3/ul Neutrophils % 78.0 % Lymphocytes % 12.0 % Monocytes % 7.0 % Eosinophils % 3.0 % Nucleated RBC % 0.0 Normal RBC Morphology Not Reportable Hem Pathologist Commnt Pending INR (Anticoag Therapy) 1.07 (0.82-1.09) Sodium 140 (135-145) mmol/L Potassium 4.1 (3.5-5.0) mmol/L Chloride 100 L (101-111) mmol/L Carbon Dioxide 32 (22-32) mmol/L Anion Gap 8 (2-11) mmol/L BUN 49 H (6-24) mg/dL Creatinine 1.41 H (0.67-1.17) mg/dL Est GFR ( Amer) 59.0 (>60) Est GFR (Non-Af Amer) 48.7 (>60) BUN/Creatinine Ratio 34.8 H (8-20) Glucose 137 H (70-100) mg/dL Calcium 9.5 (8.6-10.3) mg/dL Total Bilirubin 0.30 (0.2-1.0) mg/dL AST 15 (13-39) U/L ALT 12 (7-52) U/L Alkaline Phosphatase 73 (34-104) U/L Troponin I 0.01 (<0.03) ng/mL B-Natriuretic Peptide (<=100) pg/mL Total Protein 6.8 (6.4-8.9) g/dL Albumin 3.8 (3.2-5.2) g/dL Globulin 3.0 (2-4) g/dL Albumin/Globulin Ratio 1.3 (1-3) 06/24/19 06/25/19 06/25/19 Range/Units 22:41 00:32 03:15 WBC (3.5-10.8) 10^3/uL RBC (4.18-5.48) 10^6 /uL Hgb (14.0-18.0) g/dL Hct (42-52) % MCV (80-94) fL MCH (27-31) pg MCHC (31-36) g/dL RDW (10-15) % Plt Count (150-450) 10^3/uL MPV (7.4-10.4) fL Neut % (Auto) % Lymph % (Auto) % [place] % (Auto) % Eos % (Auto) % Baso % (Auto) % Absolute Neuts (auto) (1.5-7.7) 10^3/ul Absolute Lymphs (auto) (1.0-4.8) 10^3/ul Absolute Monos (auto) (0-0.8) 10^3/ul Absolute Eos (auto) (0-0.6) 10^3/ul Absolute Basos (auto) (0-0.2) 10^3/ul Absolute Nucleated RBC 10^3/ul Neutrophils % % Lymphocytes % % Monocytes % % Eosinophils % % Nucleated RBC % Normal RBC Morphology Hem Pathologist Commnt INR (Anticoag Therapy) (0.82-1.09) Sodium (135-145) mmol/L Potassium (3.5-5.0) mmol/L Chloride (101-111) mmol/L Carbon Dioxide (22-32) mmol/L Anion Gap (2-11) mmol/L BUN (6-24) mg/dL Creatinine (0.67-1.17) mg/dL Est GFR ( Amer) (>60) Est GFR (Non-Af Amer) (>60) BUN/Creatinine Ratio (8-20) Glucose (70-100) mg/dL Calcium (8.6-10.3) mg/dL Total Bilirubin (0.2-1.0) mg/dL AST (13-39) U/L ALT (7-52) U/L Alkaline Phosphatase (34-104) U/L Troponin I 0.01 0.00 (<0.03) ng/mL B-Natriuretic Peptide 17 (<=100) pg/mL Total Protein (6.4-8.9) g/dL Albumin (3.2-5.2) g/dL Globulin (2-4) g/dL Albumin/Globulin Ratio (1-3) Result Diagrams: 06/24/19 22:41 06/24/19 22:41 Lab Statement: Any lab studies that have been ordered have been reviewed, and results considered in the medical decision making process. - Radiology CXR Radiology Interpretation Completed By: ED Physician Summary of Radiographic Findings: No acute process, pending official report. - CT CTA CHEST/THORAX CT Interpretation Completed By: Radiologist Summary of CT Findings: IMPRESSION: 1. Persistent thrombus located lung the wall of the left main pulmonary artery. extending into a segmental branch of the left lower lobe pulmonary artery. No. new pulmonary embolus is seen. Distension of the pulmonary arteries raising the. concern of developing pulmonary hypertension. However no right heart strain is. seen. 2. Developing consolidation of the left lower lung. This may represent a lobar. pneumonia. No associated pleural effusion. 3. Aneurysmal to distension of the super renal abdominal aorta. 4. Multiple cyst involving the left kidney. THIS REPORT WAS REVIEWED BY ED PHYSICIAN. Disposition - Course Course Of Treatment: 79-year-old male presents with shortness of breath and chest pain. Patient states he recently had pulmonary embolism. Was on L it was for 3 months and then stopped. Shortly after developed another pulmonary embolism. He is still on L course at this time. However over the last few days he started feeling short of breath. Chest pain. Just like when he had his initial PE. He denies any fevers or chills. Has been taking his medications as directed. Chest x-ray inconclusive. Troponins negative 3. EKG negative. CTA of the chest demonstrates persistent thrombus. Some distended pulmonary veins. No right heart strain. Left lower lobe pneumonia. Blood cultures are taken. Patient started on Zosyn. Referred to hospitalist for admission. During ED course, patient received duoneb and piperacillin sod/ tazobactam sod 3.375 gm in sodium chloride, 100 mls @ 200 mls/hr IVPB. - Diagnoses Provider Diagnoses: LLL pneumonia, Chronic pulmonary embolism - Physician Notifications Discussed Care Of Patient With: Martha De Leon Time Discussed With Above Provider: 05:59 Instructed by Provider To: Other - Patient's case was discussed with Dr. De Leon , Dr. De Leon accepts for admission. Discharge ED - Sign-Out/Discharge Documenting (check all that apply): Patient Departure - admit - Discharge Plan Condition: Stable Disposition: ADMITTED TO [facility] Referrals: Shae Charles MD [Primary Care Provider] - - Billing Disposition and Condition Condition: STABLE Disposition: Admitted to [facility] - Attestation Statements Document Initiated by Karo: Yes Documenting Scribe: KEITH NAVA Provider For Whom Karo is Documenting (Include Credential): LILA WHITTAKER MD Scribe Attestation: I, KEITH NAVA, scribed for LILA WHITTAKER MD on 06/25/19 at 0639. Scribe Documentation Reviewed: Yes Provider Attestation: The documentation as recorded by the KEITH rothman accurately reflects the service I personally performed and the decisions made by me, LILA WHITTAKER MD Status of Scribe Document: Viewed
[2019-06-25] MEDS ORDERED: Azithromycin 500 mg/250 ml NS 500 MG/250 ML BAG IVPB ONE (06:37)
[2019-06-25] MEDS ORDERED: Albuterol/Ipratropium NEB.SOL* Albuterol 2.5 MG/Ipratropium 0.5 MG 3 ML INH PRN (06:57)
[2019-06-25] MEDS ORDERED: Dextrose 50% Syringe 50 ML* 25 GM/50 ML SYRINGE IV PUSH PRN (07:00)
[2019-06-25] MEDS ORDERED: PROCHLORPERAZINE INJ 5 MG/ML 2 ML VIAL IV PRN (07:00)
[2019-06-25] MEDS ORDERED: NS 0.9% 1000 ML** 1,000 ML IV SCH (07:00)
--- NOTE | 2019-06-25 08:34 | HP ---
ADMISSION HISTORY AND PHYSICAL: DATE OF ADMISSION: 06/17/19 PRIMARY CARE PHYSICIAN: Dr. Charles. PROVIDER: Vikki Goldberg NP ATTENDING PHYSICIAN: Dr. De Leon.* (DICTATED BY VIKKI GOLDBERG NP) CHIEF COMPLAINT: Shortness of breath and chest pain. HISTORY OF PRESENT ILLNESS: This is a 79-year-old male with the past medical history significant for hypertension, hyperlipidemia, PE, COPD, and diabetes who came to the emergency room on 06/24/19 for reports of chest pain and shortness of breath. The patient initially was afraid that this was a new PE as he developed his first pulmonary embolism in September of 2018 and was treated with 90 days of Apixaban and he developed a second clot in April in his right lung and is currently on Apixaban for that. Starting about 1.5 weeks ago, he developed chest pain, cough, fatigue, shortness of breath with exertion and has been feeling chilled. He has not had any sick contacts. The only thing he has done to treat himself at home is to increase his nighttime O2 that he puts into his CPAP from 2 L to 4 L. chest pain is worse with inspiration. In the emergency room, labs were drawn. Chest x-ray and chest CTA were done which showed no new PE, but did reveal a left lower lobe consolidation. He was given azithromycin IV as well and hospitalists were asked to evaluate the patient for admission. PAST MEDICAL HISTORY: Hypertension; hyperlipidemia; COPD; GERD; tendonitis; cataracts; obstructive sleep apnea, with CPAP and nightly oxygen at 2 L; diabetes type 2, chronic kidney disease stage 2 to 3; depression; AAA; PE x2; BPH. PAST SURGICAL HISTORY: AAA repair and revision, bilateral cataract repair, right total knee arthroplasty, and popliteal artery aneurysm repair. HOME MEDICATIONS: 1. Hyoscyamine sulfate 0.125 mg sublingually t.i.d. p.r.n. 2. Multivitamin 1 tab p.o. daily. 3. Metformin 500 mg p.o. b.i.d. 4. Albuterol inhaler 1 to 2 puffs inhalation q.4 hours p.r.n. 5. Acetaminophen 1000 mg p.o. t.i.d. p.r.n. 6. Mupirocin 2% one application topically b.i.d. p.r.n. 7. Omeprazole 40 mg p.o. daily. 8. Icosapent ethyl 2 caps p.o. b.i.d. 9. Montelukast sodium 10 mg p.o. q.p.m. 10. Dutasteride 0.5 mg p.o. daily. 11. Torsemide 20 mg p.o. daily. 12. Duloxetine 60 mg p.o. daily. 13. Apixaban 5 mg p.o. b.i.d. 14. Metoprolol tartrate 25 mg p.o. daily. ALLERGIES: BACITRACIN, IBUPROFEN, LEVOFLOXACIN, NEOMYCIN, POLYMYXIN-B, and YELLOW JACKETS. FAMILY HISTORY: Father had coronary thrombosis from which he passed at age 52. Mother passed at age 85 due to a AAA. SOCIAL HISTORY: He quit smoking 25 years ago, smoked for about 10 years. Denies any alcohol or recreational substance use. 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 He is and has 2 children. REVIEW OF SYSTEMS: A 12-point system review was performed which was positive for chest pain, cough, fatigue, shortness of breath, and chills and was negative for palpitations, dizziness, abdominal pain, nausea, vomiting, or issues moving his bowel or bladder. PHYSICAL EXAMINATION GENERAL: This is a well-developed older gentleman seen sitting up in stretcher in no acute distress noted. VITAL SIGNS: 98.3 Fahrenheit, 66 pulse, 19 respirations, 93% oxygen on 3 L, and 147/82 blood pressure. HEENT: Conjunctivae pink and moist. PERRLA. EOMs intact. Oropharynx clear. Mucous membranes moist. NECK: Supple. RESPIRATORY: Lung sounds diminished in the left lower lobe, otherwise clear on 3 L of oxygen via nasal cannula. No accessory muscle use noted. CARDIAC: S1, S2 present. Heart rate regular. No murmurs, gallops, or rubs appreciated. ABDOMEN: Large, soft, nontender, and nondistended with positive bowel sounds x4. MUSCULOSKELETAL: No clubbing or cyanosis of the digits. NEUROLOGIC: Sensation intact to light touch. No focal deficits appreciated. SKIN: Intact. No rashes or open areas appreciated. PSYCH: He is alert and oriented x4, thought content organized. DIAGNOSTIC STUDIES/LAB DATA: Chest x-ray performed, still awaiting official radiologic read. CTA of the chest showed 1. Persistent thrombus located long while of the left main pulmonary artery extending into a segmental branch of the left lower lobe pulmonary artery. No new pulmonary embolus seen. Distention of the pulmonary arteries rising the concern for developing pulmonary hypertension; however, no right heart strain is seen. 2. Developing consolidation of the left lower lung, this may represent lobar pneumonia. No associated pleural effusion. 3. Aneurysmal distention of the suprarenal abdominal aorta and multiple cysts involving the left kidney. Pertinent Lab Data: Hematocrit 42, chloride 100, BUN 49, creatinine 1.41, BUN and creatinine ratio of 34.8, glucose 137, lactic acid 1.8. ASSESSMENT AND PLAN: My impression is this is a 79-year-old male with the past medical history significant for hypertension, hyperlipidemia, chronic obstructive pulmonary disease, diabetes, and chronic kidney disease who was admitted on 06/25/19 for a left lower lobe pneumonia. 1. Left lower lobe pneumonia. The patient does not have any evidence of sepsis. We will treat with ceftriaxone and azithromycin IV. Ordered flutter valve, encouraged ambulation and deep breathing. The patient's cough is not so extreme that he feels that he needs Mucinex or any cough suppressants. We will hydrate with 1 L of normal saline at 75 mL an hour. 2. Diabetes type 2. The patient states that his most recent in-office hemoglobin A1c was in the 6% range. He does not typically check his fingersticks at home. We will order fingersticks a.c. while here and hold his home metformin and instead do sliding scale Lispro insulin. 3. Hypertension. Blood pressures have been between 120s and 140s since arriving into the emergency room. I will continue his metoprolol and torsemide. 4. Benign prostatic hypertrophy. I will continue the dutasteride. 5. Depression. Continue the duloxetine. 6. History of pulmonary embolism. We will continue Apixaban with no evidence of new pulmonary embolisms. 7. Chronic obstructive pulmonary disease. He normally does not use any oxygen during the day, but will use 2 L through his CPAP at night which he recently turned up to 4 L without consulting his primary care due to his increased shortness of breath. Continue CPAP use as well as Montelukast and DuoNeb. 8. Gastroesophageal reflux disease. He can continue his omeprazole. 9. DVT prophylaxis: Continue Apixaban. 10. Code status is full code. CONDITION: Fair. DISPOSITION: Admit OBV to [facility]. TIME SPENT: Time spent with the patient is about 60 minutes with half of that spent [id number]. VIKKI GOLDBERG, BI ANALYST [id number]/CPS #: [id number] [id number]
[2019-06-25] MEDS: Metoprolol Tartrate TAB* 25 MG PO SCH (10:23)
[2019-06-25] MEDS: Torsemide TAB* 20 MG PO SCH (10:24)
[2019-06-25] MEDS: DULoxetine DR CAP* 60 MG CAP.DR PO SCH (10:24)
[2019-06-25] MEDS: Pantoprazole TAB * 40 MG TAB PO SCH (10:24)
[2019-06-25] MEDS: Finasteride TAB* 5 MG PO SCH (10:25)
[2019-06-25] MEDS: cefTRIAXone(*) 1 GM in NS 0.9% 50 ML* 50 ML IVPB SCH (10:25)
[2019-06-25] MEDS: Apixaban* 5 MG TAB PO SCH ×2 (10:25→20:18)
[2019-06-25] MEDS: Insulin LISPRO* 1 UNITS UNIT SUBCUT SCH ×3 (10:36→17:18)
[2019-06-25] MEDS: Acetaminophen TAB* 325 MG PO PRN (13:50)
--- NOTE | 2019-06-25 14:27 | PN ---
Hospitalist Progress Note Date of Service: 06/25/19 Patient seen and examined at bedside Admitted this AM for LLL pneumonia and acute on chronic hypoxic respiratory failure. Currently on 3L nc, feels slightly better since coming in overnight. Was scheduled for arterial duplex for evaluation of AAA and popliteal; discussed with US who states that test will need to be rescheduled as an outpatient unless it is a medical emergency. Patient without complaint, other than feeling SOB with exertion. General: 79 yo male, lying in bed, conversive, NAD HEENT: PERRLA, EOMI, oral mucosa moist Lungs: diminished through bases but otherwise clear throughout CV: RRR, no murmurs appreciated, no peripheral edema noted. Pedal and radial pulses 2+ and symmetric Abd: soft, NTND, BS + Neuro: AOX4 continue current plan of care with supplemental O2, ceftriaxone, azithromycin.
[2019-06-25] MEDS ORDERED: Montelukast Sodium TAB* 10 MG PO SCH (18:00)
[2019-06-26 07:18] LABS: ABS Basophils 0.1 10^3/ul (0-0.2); ABS Eosinophils 0.3 10^3/ul (0-0.6); ABS Lymphocytes 1.1 10^3/ul (1.0-4.8); ABS Monocytes 0.6 10^3/ul (0-0.8); ABS Neutrophils 5.5 10^3/ul (1.5-7.7); Eosinophil % 4.5 %; Hematocrit 40 % (42-52); Hemoglobin 13.8 g/dL (14.0-18.0); Lymphocyte % 14.7 %; Mean Corpuscular HGB Conc 34 g/dL (31-36); Mean Corpuscular Hemoglobin 30 pg (27-31); Mean Corpuscular Volume 87 fL (80-94); Mean Platelet Volume 7.8 fL (7.4-10.4); Platelet Count 185 10^3/uL (150-450); Red Blood Count 4.63 10^6 /uL (4.18-5.48); Red Cell Distribution Width 16 % (10-15); White Blood Count 7.6 10^3/uL (3.5-10.8)
[2019-06-26 07:29] LABS: BUN/Creatinine Ratio 25.4 (8-20); Calcium 9.4 mg/dL (8.6-10.3); EGFR African American 62.5 (>60); EGFR Non-African American 51.7 (>60); Potassium 4.6 mmol/L (3.5-5.0)
[2019-06-26] MEDS: Insulin LISPRO* 1 UNITS UNIT SUBCUT SCH ×2 (08:13→12:06)
[2019-06-26] MEDS ORDERED: Azithromycin 500 mg/250 ml NS 500 MG/250 ML BAG IVPB SCH (08:30)
[2019-06-26] MEDS: Torsemide TAB* 20 MG PO SCH (08:31)
[2019-06-26] MEDS: cefTRIAXone(*) 1 GM in NS 0.9% 50 ML* 50 ML IVPB SCH (08:32)
[2019-06-26] MEDS: Metoprolol Tartrate TAB* 25 MG PO SCH (08:32)
[2019-06-26] MEDS: DULoxetine DR CAP* 60 MG CAP.DR PO SCH (08:32)
[2019-06-26] MEDS: Pantoprazole TAB * 40 MG TAB PO SCH (08:32)
[2019-06-26] MEDS: Finasteride TAB* 5 MG PO SCH (08:32)
[2019-06-26] MEDS: Acetaminophen TAB* 325 MG PO PRN (08:32)
[2019-06-26] MEDS: Apixaban* 5 MG TAB PO SCH (08:32)
[2019-06-26] MEDS ORDERED: Influenza VAC *QUAD* 2019-20* 0.5 ML SYRINGE IM ONE (09:00)
[2019-06-26] MEDS ORDERED: Pneumococcal *Vac Polyvalent 0.5 ML VIAL IM ONE (09:00)
[2019-06-26 12:05] VITALS: BP 124/78
--- NOTE | 2019-06-26 21:34 | DS ---
CC: Dr. Shae Charles * DISCHARGE SUMMARY: DATE OF ADMISSION: 06/25/19 DATE OF DISCHARGE: 06/26/19 PROVIDER: Bita Castaneda NP PRIMARY CARE PROVIDER: Dr. Shae Charles. ATTENDING PHYSICIAN: Germain Granda MD * (as dictated by Bita Castaneda NP). PRIMARY DISCHARGE DIAGNOSES: 1. Left lower lobe pneumonia. 2. Acute hypoxic respiratory failure. SECONDARY DISCHARGE DIAGNOSES: 1. Hypertension. 2. Hyperlipidemia. 3. Chronic obstructive pulmonary disease. 4. Gastroesophageal reflux disease. 5. Obstructive sleep apnea with CPAP use. 6. Type 2 diabetes. 7. Chronic kidney disease, stage 2 to 3. 8. Depression. 9. History of abdominal aortic aneurysm. 10. Pulmonary embolism x2. 11. Benign prostatic hypertrophy. 12. Tendonitis. 13. Cataracts. HOME MEDICATIONS AT DISCHARGE: 1. Hyoscyamine sulfate 0.125 mg sublingual t.i.d. p.r.n. 2. Multivitamin 1 tab daily. 3. Metformin 500 mg b.i.d. 4. Colchicine 0.6 mg b.i.d. day 1 and then daily x2 days as needed. 5. Albuterol inhaler 1 to 2 puffs inhaled q.4 hours p.r.n. 6. Extra Strength Tylenol 1000 mg t.i.d. p.r.n. 7. Bactroban 2% ointment apply topically b.i.d. p.r.n. 8. Omeprazole 40 mg daily. 9. Vascepa 2 capsules b.i.d. 10. EpiPen as needed. 11. Singulair 10 mg q.p.m. 12. Avodart 0.5 mg daily. 13. Torsemide 20 mg daily. 14. Cymbalta 60 mg daily. 15. Eliquis 5 mg b.i.d. 16. Metoprolol tartrate 25 mg daily. 17. Cefdinir 300 mg b.i.d. 18. Azithromycin 250 mg daily. Both cefdinir and azithromycin are new medications, they have been sent to the patient's pharmacy to complete his treatment for his pneumonia. HOSPITAL COURSE: For full details, please refer to the H and P provided by Alexandria Granados NP on 06/25/19. In summary, this is a 79-year-old male with past medical history significant for hypertension, hyperlipidemia, PE, COPD, and diabetes who came in with complaints of chest pain and shortness of breath. He initially was concerned that this may be a new PE. Chest CTA was done, which revealed left lower lobe consolidation but no new PE. He was started on azithromycin and ceftriaxone and placed on oxygen for support care and admitted. The patient improved after 24 hours of antibiotics. He has remained afebrile. His oxygen saturations have improved and he is actually able to tolerate periods without oxygen. He is able to maintain his sats at 90 to 93% on room air. He does desaturate with activity. He does have oxygen at home for use during the day, which he has previously used as needed. Mr. Stephenson was able to get up and ambulate around the unit and felt ready for discharge to home. PHYSICAL EXAMINATION: Vital Signs: Temp 97.4, pulse rate 60, respiratory rate 18, blood pressure 124/78, and O2 sat 91% on room air. General Appearance: This is a 79-year-old male who is sitting on edge of the bed, conversive, pleasant, in no acute distress. HEENT: Head is atraumatic and normocephalic. Pupils are equal, round, and reactive to light and accommodation. Extraocular movements are intact. Oral mucosa is moist. Neck is supple with full range of motion. No JVD noted. Cardiac: Regular rate and rhythm with no murmurs appreciated. Peripheral pulses 2+ and symmetric in radial and pedal sites. Lungs: Diminished at bases but otherwise clear throughout all lung lee. Abdomen: Soft, nontender, nondistended with normoactive bowel sounds. Musculoskeletal: Active range of motion times all 4 extremities. Neuro: He is alert and oriented x4. No focal deficits. Cranial nerves II through XII are grossly intact. OUTPATIENT FOLLOWUP NEEDS: He is to follow up with his PCP in 7 to 10 days. Mr. Stephenson was ordered an arterial duplex ultrasound of his AAA and follow up of his popliteal bypass site but unfortunately was admitted and missed his scheduled ultrasound. Because his test is not medically necessary for his admission, this was postponed and he knows to call and reschedule the appointment prior to his follow up with Dr. Patel. Again, he is to continue wearing oxygen as needed to maintain oxygen saturations and for dyspnea; he has this at home. He has multiple tanks available to him, as well as concentrator in his bedroom for nighttime use. We reviewed signs and symptoms to monitor at home and when to return to the ER, including concern for worsening breathing, chest pain, fever, chills, weakness or other concerns. DIET: Diabetic diet. ACTIVITY: As tolerated. CONDITION: Stable. DISPOSITION: To home. TIME SPENT: Approximately 45 minutes was spent on this discharge. Again, this is only a brief summary of the patient's hospital course of stay. For full details, please refer to the full medical records. If you have any further questions or need further assistance, please feel free to contact me at . BITA CASTANEDA NP [id number]/CPS #: [id number]
== END 2019-06-26 15:40 | disposition home or self-care (01) ==
LOC: ED 21:03 → MED 06-25 06:57
PROVIDERS: ADMIT Student in an Organized Health Care Education/Training Program; ATTEND Internal Medicine
DX: J18.9 Pneumonia, unspecified organism (principal); J96.01 Acute respiratory failure with hypoxia; I27.82 Chronic pulmonary embolism; E78.5 Hyperlipidemia, unspecified; J44.9 Chronic obstructive pulmonary disease, unspecified; K21.9 Gastro-esophageal reflux disease without esophagitis; I12.9 Hypertensive chronic kidney disease with stage 1 through stage 4 chronic kidney disease, or unspecified chronic kidney disease; N18.3 Chronic kidney disease, stage 3 (moderate); E11.22 Type 2 diabetes mellitus with diabetic chronic kidney disease; F32.9 Major depressive disorder, single episode, unspecified; I71.4 Abdominal aortic aneurysm, without rupture; N40.0 Benign prostatic hyperplasia without lower urinary tract symptoms; H26.9 Unspecified cataract; Z79.84 Long term (current) use of oral hypoglycemic drugs; Z79.899 Other long term (current) drug therapy; Z79.01 Long term (current) use of anticoagulants; Z87.891 Personal history of nicotine dependence; Z88.8 Allergy status to other drugs, medicaments and biological substances; R94.31 Abnormal electrocardiogram [ECG] [EKG]; R06.02 Shortness of breath
CPT/HCPCS: 36415; 71046; 71275; 80048; 80053; 83605; 83880; 84484; 85025; 85060; 85610; 87040; 90686; 90732; 93005; 96361; 96365; 96367; 96375; 99284; A9270-GY; G0378; J0456; J0696; J2543; Q9967

== ENCOUNTER 2020-12-04 17:04 | Inpatient (IN) ==
[2020-12-04 19:57] LABS: ABS Basophils 0.1 10^3/ul (0-0.2); ABS Lymphocytes 0.5 10^3/ul (1.0-4.8); ABS Monocytes 0.3 10^3/ul (0-0.8); ABS Neutrophils 9.5 10^3/ul (1.5-7.7); Hematocrit 44 % (42-52); Hemoglobin 14.6 g/dL (14.0-18.0); Lymphocyte % 4.6 %; Mean Corpuscular HGB Conc 34 g/dL (31-36); Mean Corpuscular Hemoglobin 29 pg (27-31); Mean Corpuscular Volume 85 fL (80-94); Mean Platelet Volume 8.2 fL (7.4-10.4); Platelet Count 187 10^3/uL (150-450); Red Cell Distribution Width 16 % (10-15); White Blood Count 10.3 10^3/uL (3.5-10.8)
[2020-12-04 20:08] LABS: Activated Partial Thrombo Time 29.2 seconds (26.0-38.0); INR 1.11 (0.86-1.15)
[2020-12-04] MEDS ORDERED: Albuterol HFA INHALER 8 gm MDI INH ONE (20:12)
[2020-12-04] MEDS ORDERED: Dexamethasone IV 10 MG in NS 0.9% 50 ML 50 ML IVPB ONE (20:14)
[2020-12-04 20:16] LABS: Albumin 3.9 g/dL (3.2-5.2); Albumin/Globulin Ratio 1.4 (1-3); Calcium 9.1 mg/dL (8.6-10.3); EGFR Non-African American 37.2 (>60); Globulin 2.7 g/dL (2-4); Potassium 4.8 mmol/L (3.5-5.0); Total Bilirubin 0.4 mg/dL (0.2-1.0); Total Protein 6.6 g/dL (6.4-8.9)
[2020-12-04 20:18] LABS: Troponin I 0.01 ng/mL (<0.03)
[2020-12-04] MEDS ORDERED: NS 0.9% 1000 ml BAG 1,000 ML IV ONE (20:25)
[2020-12-04] MEDS ORDERED: Iodixanol (CONTRAST) 320 MG/ML 100 ML SDV IV ONE (21:34)
[2020-12-04] MEDS ORDERED: cefTRIAXone 1 gm/50 mL NS BAG 1 GM/50 ML BAG IV ONE (21:36)
[2020-12-04 22:41] LABS: Urine Appearance Clear; Urine Bilirubin Negative (Negative); Urine Blood Negative (Negative); Urine Color Straw; Urine Glucose Negative (Negative); Urine Ketones Negative (Negative); Urine Nitrite Negative (Negative); Urine Protein Negative (Negative); Urine Urobilinogen Negative (Negative)
[2020-12-05 00:01] LABS: PCO2 Arterial 45 mmHg (35-45); PO2 Arterial 68 mmHg (80-100)
[2020-12-05] MEDS ORDERED: EPINEPHRINE 0.3 MG/0.3 ML IM PRN (02:25)
[2020-12-05] MEDS ORDERED: AUTO INJECTOR IM PRN (02:25)
[2020-12-05] MEDS ORDERED: Dextrose 50% Syringe 50 ml 25 GM/50 ML SYRINGE IV PUSH PRN (02:27)
[2020-12-05] MEDS: Polyethylene Glycol 3350 17 GM PACKET PO SCH ×2 (07:54→20:12)
[2020-12-05] MEDS: DULoxetine DR 60 mg CAP PO SCH (07:54)
[2020-12-05] MEDS: Tiotropium Brom/Olodaterol MDI INH SCH (08:42)
[2020-12-05 09:35] LABS: EGFR African American 53.1 (>60); EGFR Non-African American 43.9 (>60); Potassium 4.6 mmol/L (3.5-5.0)
[2020-12-06 06:09] LABS: ABS Basophils 0.1 10^3/ul (0-0.2); ABS Eosinophils 0.1 10^3/ul (0-0.6); ABS Lymphocytes 1.4 10^3/ul (1.0-4.8); ABS Monocytes 0.8 10^3/ul (0-0.8); ABS Neutrophils 7.5 10^3/ul (1.5-7.7); Hematocrit 43 % (42-52); Hemoglobin 14.5 g/dL (14.0-18.0); Lymphocyte % 14.7 %; Mean Corpuscular HGB Conc 33 g/dL (31-36); Mean Corpuscular Hemoglobin 29 pg (27-31); Mean Corpuscular Volume 86 fL (80-94); Mean Platelet Volume 7.7 fL (7.4-10.4); Platelet Count 198 10^3/uL (150-450); Red Blood Count 5.03 10^6 /uL (4.18-5.48); Red Cell Distribution Width 17 % (10-15); White Blood Count 9.9 10^3/uL (3.5-10.8)
[2020-12-06 06:18] LABS: INR 1.13 (0.86-1.15)
[2020-12-06 06:50] LABS: EGFR African American 54.8 (>60); EGFR Non-African American 45.3 (>60); Potassium 4.1 mmol/L (3.5-5.0)
[2020-12-06] MEDS: DULoxetine DR 60 mg CAP PO SCH (07:27)
[2020-12-06] MEDS ORDERED: Aminophylline 25 MG/ML VIAL ONE (07:28)
[2020-12-06] MEDS ORDERED: Regadenoson 0.4 MG/5 ML SYRINGE ONE (07:28)
[2020-12-06] MEDS: Tiotropium Brom/Olodaterol MDI INH SCH (08:06)
[2020-12-06] MEDS ORDERED: Perflutren Lipid Microsphere 3 ML VIAL ONE (14:42)
[2020-12-06] MEDS ORDERED: Mometasone/Formoter 200/5 MDI INH SCH (21:00)
[2020-12-06] MEDS: Mometasone 220 MCG MDI INH SCH (22:20)
[2020-12-07] MEDS: Tiotropium Brom/Olodaterol MDI INH SCH (07:40)
[2020-12-07] MEDS: Mometasone 220 MCG MDI INH SCH (07:40)
[2020-12-07] MEDS: DULoxetine DR 60 mg CAP PO SCH (08:05)
[2020-12-07] MEDS ORDERED: Albuterol HFA INHALER 8 gm MDI INH PRN (10:13)
[2020-12-08] MEDS: Mometasone 220 MCG MDI INH SCH (00:14)
[2020-12-08 05:50] LABS: Calcium 8.5 mg/dL (8.6-10.3); EGFR African American 43.8 (>60); EGFR Non-African American 36.2 (>60); Potassium 3.8 mmol/L (3.5-5.0)
[2020-12-08] MEDS: Tiotropium Brom/Olodaterol MDI INH SCH (08:15)
[2020-12-08] MEDS: Mometasone/Formoter 100/5 MDI INH SCH ×2 (08:15→22:19)
[2020-12-08] MEDS: DULoxetine DR 60 mg CAP PO SCH (10:02)
[2020-12-08] MEDS: Insulin GLARGINE 100 un/ml 10 ml VIAL SUBCUT SCH ×2 (10:04→10:15)
[2020-12-08] MEDS: Isosorbide Mononit ER 30mg TAB PO SCH (12:54)
[2020-12-08] MEDS ORDERED: Senna TAB 8.6 mg TAB PO PRN (22:09)
[2020-12-08] MEDS ORDERED: Polyethylene Glycol 3350 17 GM PACKET PO PRN (22:09)
[2020-12-08] MEDS ORDERED: Magnesium Hydroxide LIQ 30 ML UDC PO PRN (22:09)
[2020-12-09 07:23] LABS: Calcium 9.3 mg/dL (8.6-10.3); EGFR African American 42.7 (>60); EGFR Non-African American 35.3 (>60); Potassium 3.6 mmol/L (3.5-5.0)
[2020-12-09] MEDS: Insulin GLARGINE 100 un/ml 10 ml VIAL SUBCUT SCH (08:21)
[2020-12-09] MEDS: DULoxetine DR 60 mg CAP PO SCH (08:23)
[2020-12-09] MEDS: Isosorbide Mononit ER 30mg TAB PO SCH (08:23)
[2020-12-09] MEDS ORDERED: Magnesium Hydroxide LIQ 30 ML UDC PO SCH (09:00)
[2020-12-09] MEDS: Tiotropium Brom/Olodaterol MDI INH SCH (09:23)
[2020-12-09] MEDS: Mometasone/Formoter 100/5 MDI INH SCH (09:26)
[2020-12-09 11:22] VITALS: BP 155/94
== END 2020-12-09 14:15 | disposition home or self-care (01) | DRG 189 ==
LOC: ED 17:04 → MEDTELE 12-05 02:22
PROVIDERS: ADMIT Internal Medicine; ATTEND Internal Medicine

== ENCOUNTER 2021-07-16 22:46 | Inpatient (IN) ==
[2021-07-17 01:08] LABS: PCO2 Arterial 48 mmHg (35-45); PO2 Arterial 61 mmHg (80-100)
[2021-07-17 01:15] LABS: ABS Basophils 0.1 10^3/ul (0-0.2); ABS Eosinophils 0.2 10^3/ul (0-0.6); ABS Lymphocytes 0.6 10^3/ul (1.0-4.8); ABS Monocytes 0.6 10^3/ul (0-0.8); ABS Neutrophils 9.2 10^3/ul (1.5-7.7); Hematocrit 44 % (42-52); Hemoglobin 14.8 g/dL (14.0-18.0); Mean Corpuscular HGB Conc 34 g/dL (31-36); Mean Corpuscular Hemoglobin 29 pg (27-31); Mean Corpuscular Volume 86 fL (80-94); Mean Platelet Volume 7.9 fL (7.4-10.4); Nucleated Red Blood Cells % 0.1; Platelet Count 191 10^3/uL (150-450); Red Blood Count 5.15 10^6 /uL (4.18-5.48); Red Cell Distribution Width 17 % (10-15); White Blood Count 10.8 10^3/uL (3.5-10.8)
[2021-07-17 01:32] LABS: Albumin/Globulin Ratio 1.5 (1-3); Calcium 9.5 mg/dL (8.6-10.3); Globulin 2.7 g/dL (2-4); Potassium 4.4 mmol/L (3.5-5.0); Total Bilirubin 0.5 mg/dL (0.2-1.0); Total Protein 6.7 g/dL (6.4-8.9); eGFR CKD-EPI 33.7 (>60)
[2021-07-17] MEDS ORDERED: Iodixanol (CONTRAST) 320 MG/ML 100 ML SDV IV ONE (01:54)
[2021-07-17 02:57] LABS: High Sensitivity Troponin 1 Hr 8 pg/mL (<20)
[2021-07-17] MEDS: fentaNYL 100 mcg/2 ml 50 MCG/ML VIAL IV ONE ×2 (05:29→09:52)
[2021-07-17] MEDS ORDERED: Albuterol HFA INHALER 8 gm MDI INH PRN (06:43)
[2021-07-17] MEDS: Albuterol/Ipratropium NEB.SOL (2.5/0.5 MG) 3 ML NEB.SOLN INH SCH (08:15)
[2021-07-17] MEDS: FLUTICAS/UMECLI/VILANT 100-62.5-25 MDI (NF) INH SCH ×2 (09:00→14:58)
[2021-07-17] MEDS: Fluticasone NASAL SPRAY 50MCG 16 gm SPRAY BTL INTRANASAL SCH (10:38)
[2021-07-17] MEDS: DULoxetine DR 60 mg CAP PO SCH (10:39)
[2021-07-17] MEDS: FATTY ACID PO SCH ×2 (10:49→20:58)
[2021-07-17] MEDS: OMEGA PO SCH ×2 (10:49→20:58)
[2021-07-17 11:32] LABS: C Reactive Protein 9.04 mg/L (<8.01)
[2021-07-17] MEDS ORDERED: Lidocaine PATCH 5% PATCH TRANSDERM ONE (16:52)
[2021-07-18] MEDS ORDERED: cefTRIAXone 1 gm/50 mL NS BAG 1 GM/50 ML BAG IVPB SCH (02:00)
[2021-07-18 06:32] LABS: Calcium 9.4 mg/dL (8.6-10.3); Potassium 4.4 mmol/L (3.5-5.0); eGFR CKD-EPI 44.6 (>60)
[2021-07-18] MEDS: Albuterol/Ipratropium NEB.SOL (2.5/0.5 MG) 3 ML NEB.SOLN INH SCH (08:28)
[2021-07-18] MEDS: FLUTICAS/UMECLI/VILANT 100-62.5-25 MDI (NF) INH SCH (08:30)
[2021-07-18] MEDS: DULoxetine DR 60 mg CAP PO SCH (09:38)
[2021-07-18] MEDS: FATTY ACID PO SCH (09:39)
[2021-07-18] MEDS: OMEGA PO SCH (09:39)
[2021-07-18] MEDS: Fluticasone NASAL SPRAY 50MCG 16 gm SPRAY BTL INTRANASAL SCH (09:41)
[2021-07-18 15:59] VITALS: BP 124/63
== END 2021-07-18 16:00 | disposition home or self-care (01) | DRG 205 ==
LOC: ED 22:46 → SUATTDRO 07-17 05:44 → EDHOLD 07-17 05:44 → ICU 07-17 09:45 → MED 07-17 18:59
PROVIDERS: ADMIT Internal Medicine; ATTEND Internal Medicine

== ENCOUNTER 2022-07-14 10:29 | Inpatient (IN) ==
[2022-07-14 11:14] LABS: ABS Basophils 0.1 10^3/ul (0-0.2); ABS Eosinophils 0.2 10^3/ul (0-0.6); ABS Lymphocytes 0.9 10^3/ul (1.0-4.8); ABS Monocytes 0.7 10^3/ul (0-0.8); ABS Neutrophils 10.4 10^3/ul (1.5-7.7); Eosinophil % 1.3 %; Hematocrit 38 % (42-52); Hemoglobin 11.8 g/dL (14.0-18.0); Lymphocyte % 7.1 %; Mean Corpuscular HGB Conc 31 g/dL (31-36); Mean Corpuscular Hemoglobin 26 pg (27-31); Mean Corpuscular Volume 84 fL (80-94); Mean Platelet Volume 7.3 fL (7.4-10.4); Nucleated Red Blood Cells % 0.1; Platelet Count 213 10^3/uL (150-450); Red Blood Count 4.51 10^6 /uL (4.18-5.48); Red Cell Distribution Width 17 % (10-15); White Blood Count 12.3 10^3/uL (3.5-10.8)
[2022-07-14 11:51] LABS: Albumin 3.9 g/dL (3.2-5.2); Albumin/Globulin Ratio 1.9 (1-3); Calcium 9.4 mg/dL (8.6-10.3); Creatinine, Serum 1.89 mg/dL (0.67-1.17); Globulin 2.1 g/dL (2-4); Potassium 4.3 mmol/L (3.5-5.0); Total Bilirubin 0.4 mg/dL (0.2-1.0); eGFR CKD-EPI 35.4 (>60)
[2022-07-14 11:59] LABS: INR 1.19 (0.88-1.18)
[2022-07-14 13:57] LABS: High Sensitivity Troponin 1 Hr 7 pg/mL (<20)
[2022-07-14] MEDS ORDERED: Albuterol HFA INHALER 8 gm MDI INH PRN (18:23)
[2022-07-14] MEDS ORDERED: oxyCODONE/Acetamin 5/325 mg TAB PO PRN (19:31)
[2022-07-14] MEDS ORDERED: Dextrose 50% Syringe 50 ml 25 GM/50 ML SYRINGE IV PUSH PRN (19:41)
[2022-07-15 05:25] LABS: ABS Basophils 0.1 10^3/ul (0-0.2); ABS Eosinophils 0.3 10^3/ul (0-0.6); ABS Lymphocytes 1.1 10^3/ul (1.0-4.8); ABS Monocytes 0.7 10^3/ul (0-0.8); ABS Neutrophils 5.6 10^3/ul (1.5-7.7); Eosinophil % 3.9 %; Hematocrit 36 % (42-52); Hemoglobin 11.6 g/dL (14.0-18.0); Lymphocyte % 13.6 %; Mean Corpuscular HGB Conc 32 g/dL (31-36); Mean Corpuscular Hemoglobin 27 pg (27-31); Mean Corpuscular Volume 84 fL (80-94); Mean Platelet Volume 7.3 fL (7.4-10.4); Nucleated Red Blood Cells % 0.1; Platelet Count 199 10^3/uL (150-450); Red Blood Count 4.34 10^6 /uL (4.18-5.48); Red Cell Distribution Width 17 % (10-15); White Blood Count 7.8 10^3/uL (3.5-10.8)
[2022-07-15 06:39] LABS: Calcium 9.2 mg/dL (8.6-10.3); Creatinine, Serum 1.59 mg/dL (0.67-1.17); eGFR CKD-EPI 43.6 (>60)
[2022-07-15] MEDS: DULoxetine DR 60 mg CAP PO SCH (09:13)
[2022-07-15] MEDS: CMCS:FLUTICAS/UMECLI/VILANT 100-62.5-25 MDI (NF) INH SCH (12:10)
[2022-07-16 06:45] LABS: Calcium 8.8 mg/dL (8.6-10.3); Creatinine, Serum 1.52 mg/dL (0.67-1.17); Magnesium 1.9 mg/dL (1.9-2.7); Potassium 4.1 mmol/L (3.5-5.0)
[2022-07-16] MEDS: DULoxetine DR 60 mg CAP PO SCH (08:37)
[2022-07-16] MEDS: CMCS:FLUTICAS/UMECLI/VILANT 100-62.5-25 MDI (NF) INH SCH (09:06)
[2022-07-17] MEDS: CMCS:FLUTICAS/UMECLI/VILANT 100-62.5-25 MDI (NF) INH SCH (07:29)
[2022-07-17] MEDS: DULoxetine DR 60 mg CAP PO SCH (08:03)
[2022-07-18] MEDS: CMCS:FLUTICAS/UMECLI/VILANT 100-62.5-25 MDI (NF) INH SCH (07:15)
[2022-07-18] MEDS: DULoxetine DR 60 mg CAP PO SCH (09:26)
[2022-07-18 10:55] VITALS: BP 122/72
== END 2022-07-18 15:25 | disposition home or self-care (01) | DRG 199 ==
LOC: EDHOLD 10:29 → ED 10:29 → SUATTDRO 12:40 → EDHOLD 15:50 → SSU 17:24
PROVIDERS: ADMIT Family Medicine; ATTEND Hospitalist

== ENCOUNTER 2022-09-02 14:50 | Inpatient (IN) ==
[2022-09-03] MEDS ORDERED: Senna TAB 8.6 mg TAB PO PRN (13:58)
[2022-09-03] MEDS ORDERED: Magnesium Hydroxide LIQ 30 ML UDC PO PRN (13:58)
[2022-09-03] MEDS ORDERED: Albuterol HFA INHALER 8 gm MDI INH PRN (14:17)
[2022-09-03] MEDS ORDERED: Albuterol/Ipratropium NEB.SOL (2.5/0.5 MG) 3 ML NEB.SOLN INH PRN (19:00)
[2022-09-03] MEDS: PTO:ICOSAPENT ETHYL 1 GM CAPSULE (NF) PO SCH (21:03)
[2022-09-04 06:21] LABS: ABS Basophils 0.1 10^3/uL (0.0-0.1); ABS Eosinophils 0.4 10^3/uL (0.0-0.5); ABS Lymphocytes 0.7 10^3/uL (1.0-4.8); ABS Monocytes 0.8 10^3/uL (0.0-1.1); ABS Neutrophils 6.2 10^3/uL (1.5-7.6); ABS Nucleated RBC 0.01 10^3/ul; Eosinophil % 5.3 %; Hematocrit 26.8 % (38-53); Hemoglobin 8.8 g/dL (13.2-16.3); Lymphocyte % 8.1 %; Mean Corpuscular Hemoglobin 26.4 pg (27-33); Mean Corpuscular Hgb Conc 32.8 g/dL (31-36); Mean Corpuscular Volume 80.6 fL (80-97); Mean Platelet Volume 7.4 fL (7.5-11.2); Nucleated Red Blood Cells % 0.1 /100 WBC (0.0-0.4); Platelet Count 255 10^3/uL (150-450); Red Blood Count 3.33 10^6/uL (4.06-5.63); Red Cell Distribution Width 20.7 % (12-17); White Blood Count 8.1 10^3/uL (3.6-10.2)
[2022-09-04 06:42] LABS: Albumin 2.9 g/dL (3.2-5.2); Albumin/Globulin Ratio 1.5 (1-3); Calcium 8.8 mg/dL (8.6-10.3); Creatinine, Serum 1.51 mg/dL (0.67-1.17); Potassium 3.8 mmol/L (3.5-5.0); Total Protein 4.9 g/dL (6.4-8.9); eGFR CKD-EPI 46.4 (>60)
[2022-09-04] MEDS: Fluticasone NASAL SPRAY 50MCG 16 gm SPRAY BTL BOTH NARES SCH (09:28)
[2022-09-04] MEDS: DULoxetine DR 60 mg CAP PO SCH (09:29)
[2022-09-04] MEDS: PTO:ICOSAPENT ETHYL 1 GM CAPSULE (NF) PO SCH ×2 (09:30→20:29)
[2022-09-04] MEDS: FLUTICAS/UMECLI/VILANT 100-62.5-25 MDI (NF) INH SCH (09:32)
[2022-09-05] MEDS: DULoxetine DR 60 mg CAP PO SCH (09:12)
[2022-09-05] MEDS: PTO:ICOSAPENT ETHYL 1 GM CAPSULE (NF) PO SCH ×2 (09:12→21:36)
[2022-09-05] MEDS: Fluticasone NASAL SPRAY 50MCG 16 gm SPRAY BTL BOTH NARES SCH (09:12)
[2022-09-05] MEDS: FLUTICAS/UMECLI/VILANT 100-62.5-25 MDI (NF) INH SCH (09:12)
[2022-09-05] MEDS ORDERED: Ondansetron ODT 4 mg TAB 4 MG TAB PO PRN (16:49)
[2022-09-06] MEDS: DULoxetine DR 60 mg CAP PO SCH (08:22)
[2022-09-06] MEDS: FLUTICAS/UMECLI/VILANT 100-62.5-25 MDI (NF) INH SCH (08:23)
[2022-09-06] MEDS: Fluticasone NASAL SPRAY 50MCG 16 gm SPRAY BTL BOTH NARES SCH (08:23)
[2022-09-06] MEDS: PTO:ICOSAPENT ETHYL 1 GM CAPSULE (NF) PO SCH ×2 (08:23→20:43)
[2022-09-07] MEDS: DULoxetine DR 60 mg CAP PO SCH (09:40)
[2022-09-07] MEDS: PTO:ICOSAPENT ETHYL 1 GM CAPSULE (NF) PO SCH ×2 (09:43→21:08)
[2022-09-07] MEDS: FLUTICAS/UMECLI/VILANT 100-62.5-25 MDI (NF) INH SCH (09:44)
[2022-09-07] MEDS: Fluticasone NASAL SPRAY 50MCG 16 gm SPRAY BTL BOTH NARES SCH (09:44)
[2022-09-07] MEDS: PAIN RELIEVING RUB (MENTHOL/SALICYLATE) 1 APPLIC TUBE TOPICAL PRN (09:47)
[2022-09-08] MEDS: PTO:ICOSAPENT ETHYL 1 GM CAPSULE (NF) PO SCH ×2 (08:12→20:50)
[2022-09-08] MEDS: DULoxetine DR 60 mg CAP PO SCH (08:13)
[2022-09-08] MEDS: FLUTICAS/UMECLI/VILANT 100-62.5-25 MDI (NF) INH SCH (08:14)
[2022-09-08] MEDS: Fluticasone NASAL SPRAY 50MCG 16 gm SPRAY BTL BOTH NARES SCH (08:14)
[2022-09-08] MEDS ORDERED: ICOSAPENT ETHYL 1 GM CAPSULE (NF) PO ONE (10:00)
[2022-09-09] MEDS: PTO:ICOSAPENT ETHYL 1 GM CAPSULE (NF) PO SCH ×2 (08:06→20:41)
[2022-09-09] MEDS: DULoxetine DR 60 mg CAP PO SCH (08:07)
[2022-09-09] MEDS: FLUTICAS/UMECLI/VILANT 100-62.5-25 MDI (NF) INH SCH (08:07)
[2022-09-09] MEDS: Fluticasone NASAL SPRAY 50MCG 16 gm SPRAY BTL BOTH NARES SCH (08:07)
[2022-09-09] MEDS: PAIN RELIEVING RUB (MENTHOL/SALICYLATE) 1 APPLIC TUBE TOPICAL PRN (08:25)
[2022-09-10] MEDS: DULoxetine DR 60 mg CAP PO SCH (08:12)
[2022-09-10] MEDS: PTO:ICOSAPENT ETHYL 1 GM CAPSULE (NF) PO SCH ×2 (08:14→20:19)
[2022-09-10] MEDS: FLUTICAS/UMECLI/VILANT 100-62.5-25 MDI (NF) INH SCH (08:14)
[2022-09-10] MEDS: Fluticasone NASAL SPRAY 50MCG 16 gm SPRAY BTL BOTH NARES SCH (08:26)
[2022-09-11 05:22] VITALS: BP 138/81
[2022-09-11 06:52] LABS: ABS Basophils 0.1 10^3/uL (0.0-0.1); ABS Eosinophils 0.4 10^3/uL (0.0-0.5); ABS Lymphocytes 0.7 10^3/uL (1.0-4.8); ABS Monocytes 0.7 10^3/uL (0.0-1.1); ABS Neutrophils 4.8 10^3/uL (1.5-7.6); ABS Nucleated RBC 0.01 10^3/ul; Eosinophil % 6.6 %; Hematocrit 30.4 % (38-53); Hemoglobin 10.1 g/dL (13.2-16.3); Lymphocyte % 10.3 %; Mean Corpuscular Hemoglobin 27.4 pg (27-33); Mean Corpuscular Hgb Conc 33.1 g/dL (31-36); Mean Corpuscular Volume 82.9 fL (80-97); Mean Platelet Volume 7.3 fL (7.5-11.2); Nucleated Red Blood Cells % 0.1 /100 WBC (0.0-0.4); Platelet Count 250 10^3/uL (150-450); Red Blood Count 3.67 10^6/uL (4.06-5.63); Red Cell Distribution Width 21.6 % (12-17); White Blood Count 6.8 10^3/uL (3.6-10.2)
[2022-09-11 07:21] LABS: Albumin 3.2 g/dL (3.2-5.2); Albumin/Globulin Ratio 1.3 (1-3); Calcium 9.2 mg/dL (8.6-10.3); Creatinine, Serum 1.59 mg/dL (0.67-1.17); Globulin 2.5 g/dL (2-4); Potassium 4.1 mmol/L (3.5-5.0); Total Bilirubin 0.7 mg/dL (0.2-1.0); Total Protein 5.7 g/dL (6.4-8.9); eGFR CKD-EPI 43.6 (>60)
[2022-09-11] MEDS: Fluticasone NASAL SPRAY 50MCG 16 gm SPRAY BTL BOTH NARES SCH (08:52)
[2022-09-11] MEDS: PTO:ICOSAPENT ETHYL 1 GM CAPSULE (NF) PO SCH (08:53)
[2022-09-11] MEDS: DULoxetine DR 60 mg CAP PO SCH (08:54)
[2022-09-11] MEDS: FLUTICAS/UMECLI/VILANT 100-62.5-25 MDI (NF) INH SCH (08:59)
== END 2022-09-11 13:20 | disposition home or self-care (01) | DRG 201 ==
LOC: PMRU 09-03 12:59
PROVIDERS: ADMIT Physical Medicine & Rehabilitation; ATTEND Physical Medicine & Rehabilitation

== ENCOUNTER 2022-10-16 15:38 | Inpatient (IN) ==
[2022-10-16 17:53] LABS: ABS Basophils 0.2 10^3/uL (0.0-0.1); ABS Eosinophils 0.1 10^3/uL (0.0-0.5); ABS Lymphocytes 0.6 10^3/uL (1.0-4.8); ABS Neutrophils 13.5 10^3/uL (1.5-7.6); Eosinophil % 0.5 %; Hematocrit 32.2 % (38-53); Hemoglobin 10.3 g/dL (13.2-16.3); Mean Corpuscular Hemoglobin 26.3 pg (27-33); Mean Corpuscular Hgb Conc 31.8 g/dL (31-36); Mean Corpuscular Volume 82.5 fL (80-97); Mean Platelet Volume 7.5 fL (7.5-11.2); Platelet Count 211 10^3/uL (150-450); Red Blood Count 3.91 10^6/uL (4.06-5.63); Red Cell Distribution Width 19.8 % (12-17); White Blood Count 15.4 10^3/uL (3.6-10.2)
[2022-10-16 17:58] LABS: INR 1.51 (0.88-1.18)
[2022-10-16 18:10] LABS: Albumin 3.2 g/dL (3.2-5.2); Albumin/Globulin Ratio 1.2 (1-3); Calcium 9.1 mg/dL (8.6-10.3); Creatinine, Serum 2.32 mg/dL (0.67-1.17); Globulin 2.7 g/dL (2-4); Magnesium 1.9 mg/dL (1.9-2.7); Potassium 4.1 mmol/L (3.5-5.0); Total Bilirubin 0.6 mg/dL (0.2-1.0); Total Protein 5.9 g/dL (6.4-8.9); eGFR CKD-EPI 27.7 (>60)
[2022-10-16] MEDS ORDERED: Piperacillin/Tazobac ADVAN 3.375 GM in NS 0.9% 100 ml BAG 100 ML IV ONE (18:56)
[2022-10-16] MEDS ORDERED: Piperacillin/Tazobac 3.375 GM BAG ONE (19:14)
[2022-10-16 19:28] LABS: High Sensitivity Troponin 1 Hr 16 pg/mL (<20)
[2022-10-16] MEDS ORDERED: Lactated Ringers 1000 ml BAG 1,000 ML IV ONE (20:14)
[2022-10-16] MEDS ORDERED: Polyethylene Glycol 3350 17 GM PACKET PO PRN (23:32)
[2022-10-16] MEDS ORDERED: Magnesium Hydroxide LIQ 30 ML UDC PO PRN (23:32)
[2022-10-16] MEDS ORDERED: Azithromycin 500 mg/250 ml NS 500 MG/250 ML BAG IVPB SCH (23:45)
[2022-10-16] MEDS ORDERED: Albuterol HFA INHALER 8 gm MDI INH PRN (23:52)
[2022-10-16] MEDS: Magnesium Hydroxide LIQ 30 ML UDC PO SCH (23:58)
[2022-10-17] MEDS: DOXYcycline 100 MG in NS 0.9% 250 ml 250 ML IVPB SCH ×2 (00:45→13:38)
[2022-10-17 01:14] LABS: C Reactive Protein 13.07 mg/L (<8.01)
[2022-10-17 02:54] LABS: Ferritin 126.5 ng/mL (24-336)
[2022-10-17 05:55] LABS: Hematocrit 28.5 % (38-53); Hemoglobin 9.2 g/dL (13.2-16.3); Mean Corpuscular Hemoglobin 26.1 pg (27-33); Mean Corpuscular Hgb Conc 32.4 g/dL (31-36); Mean Corpuscular Volume 80.4 fL (80-97); Mean Platelet Volume 7.4 fL (7.5-11.2); Platelet Count 180 10^3/uL (150-450); Red Blood Count 3.55 10^6/uL (4.06-5.63); Red Cell Distribution Width 19.9 % (12-17); White Blood Count 11.4 10^3/uL (3.6-10.2)
[2022-10-17 05:59] LABS: Urine Appearance Clear; Urine Bilirubin Negative (Negative); Urine Blood Negative (Negative); Urine Color Yellow; Urine Glucose 3+(>=500 mg/dL) (Negative); Urine Ketones Negative (Negative); Urine Nitrite Negative (Negative); Urine Protein Negative (Negative); Urine Specific Gravity 1.012 (1.002-1.030); Urine Urobilinogen Negative (Negative)
[2022-10-17 06:14] LABS: Creatinine, Serum 2.04 mg/dL (0.67-1.17); Magnesium 1.9 mg/dL (1.9-2.7); Potassium 4.2 mmol/L (3.5-5.0); Uric Acid 6.9 mg/dL (4.4-7.6); eGFR CKD-EPI 32.3 (>60)
[2022-10-17 06:51] LABS: TSH Ultra Thyroid Stim Horm 2.77 mcIU/mL (0.34-5.60)
[2022-10-17] MEDS: cefTRIAXone 1 gm/50 mL D5W 1 GM/50 ML BAG IV SCH (10:13)
[2022-10-17] MEDS: DULoxetine DR 60 mg CAP PO SCH (10:15)
[2022-10-17] MEDS: Fluticasone NASAL SPRAY 50MCG 16 gm SPRAY BTL BOTH NARES SCH (10:16)
[2022-10-17] MEDS: Magnesium Hydroxide LIQ 30 ML UDC PO SCH ×2 (10:16→20:14)
[2022-10-17] MEDS: CMCS: FLUTICAS/UMECLI/VILANT 100-62.5-25 MDI (NF) INH SCH (10:17)
[2022-10-17] MEDS: ICOSAPENT ETHYL 1 GM CAPSULE (NF) PO SCH ×2 (11:30→20:40)
[2022-10-17] MEDS ORDERED: Albuterol/Ipratropium NEB.SOL (2.5/0.5 MG) 3 ML NEB.SOLN INH PRN (13:13)
[2022-10-17] MEDS ORDERED: Dextrose 50% Syringe 50 ml 25 GM/50 ML SYRINGE IV PUSH PRN (13:52)
[2022-10-17] MEDS: Senna TAB 8.6 mg TAB PO PRN (20:16)
[2022-10-18] MEDS: DOXYcycline 100 MG in NS 0.9% 250 ml 250 ML IVPB SCH (00:11)
[2022-10-18 06:42] LABS: ABS Lymphocytes 0.7 10^3/uL (1.0-4.8); ABS Monocytes 0.9 10^3/uL (0.0-1.1); ABS Neutrophils 12.7 10^3/uL (1.5-7.6); ABS Nucleated RBC 0.01 10^3/ul; Eosinophil % 0.1 %; Hematocrit 25.6 % (38-53); Hemoglobin 8.4 g/dL (13.2-16.3); Lymphocyte % 4.6 %; Mean Corpuscular Hemoglobin 26.7 pg (27-33); Mean Corpuscular Hgb Conc 32.6 g/dL (31-36); Mean Corpuscular Volume 81.9 fL (80-97); Mean Platelet Volume 7.8 fL (7.5-11.2); Platelet Count 180 10^3/uL (150-450); Red Blood Count 3.13 10^6/uL (4.06-5.63); Red Cell Distribution Width 19.8 % (12-17); White Blood Count 14.3 10^3/uL (3.6-10.2)
[2022-10-18 06:56] LABS: Calcium 8.9 mg/dL (8.6-10.3); Creatinine, Serum 1.74 mg/dL (0.67-1.17); Potassium 4.4 mmol/L (3.5-5.0); eGFR CKD-EPI 39.1 (>60)
[2022-10-18] MEDS: CMCS: FLUTICAS/UMECLI/VILANT 100-62.5-25 MDI (NF) INH SCH (07:58)
[2022-10-18] MEDS: Magnesium Hydroxide LIQ 30 ML UDC PO SCH ×2 (09:23→21:23)
[2022-10-18] MEDS: DULoxetine DR 60 mg CAP PO SCH (09:23)
[2022-10-18] MEDS: Fluticasone NASAL SPRAY 50MCG 16 gm SPRAY BTL BOTH NARES SCH (09:24)
[2022-10-18] MEDS: ICOSAPENT ETHYL 1 GM CAPSULE (NF) PO SCH ×2 (09:24→21:12)
[2022-10-18] MEDS: cefTRIAXone 1 gm/50 mL D5W 1 GM/50 ML BAG IV SCH (10:15)
[2022-10-18] MEDS: Senna TAB 8.6 mg TAB PO PRN (21:23)
[2022-10-19 06:12] LABS: Hematocrit 25.5 % (38-53); Hemoglobin 8.2 g/dL (13.2-16.3); Mean Corpuscular Hgb Conc 32.2 g/dL (31-36); Mean Corpuscular Volume 80.9 fL (80-97); Mean Platelet Volume 7.3 fL (7.5-11.2); Platelet Count 203 10^3/uL (150-450); Red Blood Count 3.16 10^6/uL (4.06-5.63); Red Cell Distribution Width 20.4 % (12-17); White Blood Count 11.1 10^3/uL (3.6-10.2)
[2022-10-19 06:30] LABS: Calcium 8.9 mg/dL (8.6-10.3); Creatinine, Serum 1.48 mg/dL (0.67-1.17); Potassium 4.5 mmol/L (3.5-5.0); eGFR CKD-EPI 47.5 (>60)
[2022-10-19] MEDS: CMCS: FLUTICAS/UMECLI/VILANT 100-62.5-25 MDI (NF) INH SCH (07:31)
[2022-10-19] MEDS: Fluticasone NASAL SPRAY 50MCG 16 gm SPRAY BTL BOTH NARES SCH (08:19)
[2022-10-19] MEDS: Magnesium Hydroxide LIQ 30 ML UDC PO SCH ×2 (08:19→21:54)
[2022-10-19] MEDS: DULoxetine DR 60 mg CAP PO SCH (08:20)
[2022-10-19] MEDS: ICOSAPENT ETHYL 1 GM CAPSULE (NF) PO SCH ×2 (08:22→21:54)
[2022-10-19] MEDS ORDERED: Iron Sucrose 20 MG/ML 5 ML VIAL IV PUSH SCH (09:00)
[2022-10-19] MEDS: Iron Sucrose 200 MG in NS 0.9% 100 ml IVPB SCH (13:36)
[2022-10-19] MEDS: Senna TAB 8.6 mg TAB PO PRN (21:53)
[2022-10-20] MEDS: CMCS: FLUTICAS/UMECLI/VILANT 100-62.5-25 MDI (NF) INH SCH (07:40)
[2022-10-20 07:48] LABS: Hematocrit 28.3 % (38-53); Hemoglobin 9.2 g/dL (13.2-16.3); Mean Corpuscular Hemoglobin 26.5 pg (27-33); Mean Corpuscular Hgb Conc 32.6 g/dL (31-36); Mean Corpuscular Volume 81.5 fL (80-97); Mean Platelet Volume 7.5 fL (7.5-11.2); Platelet Count 235 10^3/uL (150-450); Red Blood Count 3.47 10^6/uL (4.06-5.63); Red Cell Distribution Width 20.6 % (12-17); White Blood Count 11.4 10^3/uL (3.6-10.2)
[2022-10-20 07:56] LABS: Calcium 9.3 mg/dL (8.6-10.3); Creatinine, Serum 1.43 mg/dL (0.67-1.17); Potassium 4.1 mmol/L (3.5-5.0); eGFR CKD-EPI 49.5 (>60)
[2022-10-20] MEDS: Iron Sucrose 200 MG in NS 0.9% 100 ml IVPB SCH (09:30)
[2022-10-20] MEDS: DULoxetine DR 60 mg CAP PO SCH (09:31)
[2022-10-20] MEDS: ICOSAPENT ETHYL 1 GM CAPSULE (NF) PO SCH ×2 (09:32→20:24)
[2022-10-20] MEDS: Fluticasone NASAL SPRAY 50MCG 16 gm SPRAY BTL BOTH NARES SCH (09:32)
[2022-10-20] MEDS: Magnesium Hydroxide LIQ 30 ML UDC PO SCH ×2 (09:33→20:23)
[2022-10-20] MEDS: Polyethylene Glycol 3350 17 GM PACKET PO SCH (09:33)
[2022-10-21 06:11] LABS: Hematocrit 26.7 % (38-53); Hemoglobin 8.7 g/dL (13.2-16.3); Mean Corpuscular Hemoglobin 26.2 pg (27-33); Mean Corpuscular Hgb Conc 32.7 g/dL (31-36); Mean Corpuscular Volume 80.3 fL (80-97); Mean Platelet Volume 7.2 fL (7.5-11.2); Platelet Count 225 10^3/uL (150-450); Red Blood Count 3.33 10^6/uL (4.06-5.63); Red Cell Distribution Width 19.8 % (12-17); White Blood Count 12.3 10^3/uL (3.6-10.2)
[2022-10-21 06:30] LABS: Calcium 9.1 mg/dL (8.6-10.3); Creatinine, Serum 1.55 mg/dL (0.67-1.17); Potassium 4.1 mmol/L (3.5-5.0)
[2022-10-21 06:32] LABS: ABS Basophils 0.1 10^3/uL (0.0-0.1); ABS Lymphocytes 0.9 10^3/uL (1.0-4.8); ABS Monocytes 1.2 10^3/uL (0.0-1.1); ABS Nucleated RBC 0.01 10^3/ul; Eosinophil % 0.4 %; Lymphocyte % 7.6 %; Nucleated Red Blood Cells % 0.1 /100 WBC (0.0-0.4)
[2022-10-21] MEDS: Polyethylene Glycol 3350 17 GM PACKET PO SCH ×2 (07:28→07:33)
[2022-10-21] MEDS: Magnesium Hydroxide LIQ 30 ML UDC PO SCH ×2 (07:28→07:33)
[2022-10-21] MEDS: DULoxetine DR 60 mg CAP PO SCH (07:29)
[2022-10-21] MEDS: Fluticasone NASAL SPRAY 50MCG 16 gm SPRAY BTL BOTH NARES SCH (07:29)
[2022-10-21] MEDS: CMCS: FLUTICAS/UMECLI/VILANT 100-62.5-25 MDI (NF) INH SCH (07:44)
[2022-10-21] MEDS: ICOSAPENT ETHYL 1 GM CAPSULE (NF) PO SCH (07:46)
[2022-10-21 10:14] VITALS: BP 128/68
[2022-10-21] MEDS: Iron Sucrose 200 MG in NS 0.9% 100 ml IVPB SCH (10:17)
== END 2022-10-21 14:30 | disposition home or self-care (01) | DRG 871 ==
LOC: ED 15:38 → EDHOLD 15:38 → SUATTDRO 22:04 → MED 10-17 12:26
PROVIDERS: ADMIT Internal Medicine; ATTEND Internal Medicine

== ENCOUNTER 2024-01-16 17:58 | Inpatient (IN) ==
[2024-01-16 18:30] LABS: ABS Basophils 0.1 10^3/uL (0.0-0.1); ABS Lymphocytes 0.4 10^3/uL (1.0-4.8); ABS Monocytes 1.3 10^3/uL (0.0-1.1); ABS Neutrophils 18.7 10^3/uL (1.5-7.6); ABS Nucleated RBC 0.01 10^3/ul; Eosinophil % 0.1 %; Lymphocyte % 1.9 %; Mean Corpuscular Hemoglobin 28.7 pg (27-33); Mean Corpuscular Hgb Conc 33.3 g/dL (31-36); Mean Corpuscular Volume 86.2 fL (80-97); Mean Platelet Volume 7.7 fL (7.5-11.2); Platelet Count 203 10^3/uL (150-450); Red Blood Count 4.53 10^6/uL (4.06-5.63); Red Cell Distribution Width 18.4 % (12-17); White Blood Count 20.4 10^3/uL (3.6-10.2)
[2024-01-16 18:56] LABS: High Sens Troponin Baseline 29 pg/mL (<20)
[2024-01-16] MEDS: NS 0.9% 500 ml BAG 500 ML IV ONE (19:10)
[2024-01-16 19:35] LABS: ALT 19 U/L (7-52); Albumin 3.6 g/dL (3.2-5.2); Albumin/Globulin Ratio 1.1 (1-3); Alkaline Phosphatase 74 U/L (35-149); Blood Urea Nitrogen 57 mg/dL (6-24); CO2 Carbon Dioxide 27 mmol/L (22-32); Chloride 98 mmol/L (101-111); Creatine Kinase 266 U/L (10-223); Creatinine, Serum 2.15 mg/dL (0.67-1.17); Globulin 3.2 g/dL (2-4); Glucose 118 mg/dL (70-100); Sodium 134 mmol/L (135-145); Total Bilirubin 0.8 mg/dL (0.2-1.0); Total Protein 6.8 g/dL (6.4-8.9); eGFR CKD-EPI 30.2 (>60)
[2024-01-16 19:37] LABS: Anion Gap 9 mmol/L (2-16)
[2024-01-16 20:13] LABS: High Sensitivity Troponin 1 Hr 25 pg/mL (<20)
[2024-01-16 20:55] LABS: Urine Appearance Clear; Urine Bilirubin Negative (Negative); Urine Blood Trace (Negative); Urine Color Yellow; Urine Glucose Negative (Negative); Urine Ketones Trace (Negative); Urine Nitrite Negative (Negative); Urine Protein 1+ (>=30 mg/dL) (Negative); Urine Specific Gravity 1.018 (1.002-1.030); Urine Urobilinogen Negative (Negative); Urine pH 5.5 (5.0-8.0)
[2024-01-16 21:03] LABS: Urine Bacteria 3+ /HPF (Absent); Urine Red Blood Cell 1+(3-5/hpf) /HPF (0-Trace); Urine Squamous Epithelial Cell Present /HPF (Absent); Urine White Blood Cell 3+(>20/hpf) /HPF (0-Trace)
[2024-01-16 22:18] LABS: Potassium Redraw 4.8 mmol/L (3.5-5.0)
[2024-01-16] MEDS: cefTRIAXone 1 gm/50 mL D5W 1 GM/50 ML BAG IV ONE (22:53)
[2024-01-16] MEDS: Lactated Ringers 1000 ml BAG 1,000 ML IV ONE (23:11)
[2024-01-17] MEDS ORDERED: Albuterol HFA INHALER 8 gm MDI INH PRN (00:07)
[2024-01-17] MEDS ORDERED: Dextrose 50% Syringe 50 ml 25 GM/50 ML SYRINGE IV PUSH PRN (00:16)
[2024-01-17] MEDS: Lactated Ringers 1000 ml BAG 1,000 ML IV SCH (00:43)
[2024-01-17 00:48] LABS: Magnesium 2.1 mg/dL (1.9-2.7)
[2024-01-17] MEDS: Cefepime 2 GM in Dextrose 2 GM/50 ML BAG IV SCH ×2 (02:29→09:20)
[2024-01-17] MEDS: Azithromycin 500 mg/250 ml NS 500 MG/250 ML BAG IVPB SCH ×2 (03:31→05:18)
[2024-01-17] MEDS: FLUTICAS/UMECLI/VILANT 100-62.5-25 MDI (NF) INH SCH (07:19)
[2024-01-17 07:48] LABS: ABS Basophils 0.1 10^3/uL (0.0-0.1); ABS Eosinophils 0.1 10^3/uL (0.0-0.5); ABS Lymphocytes 0.3 10^3/uL (1.0-4.8); ABS Monocytes 1.1 10^3/uL (0.0-1.1); ABS Neutrophils 13.2 10^3/uL (1.5-7.6); Eosinophil % 0.4 %; Hematocrit 35.9 % (38-53); Hemoglobin 11.9 g/dL (13.2-16.3); Lymphocyte % 2.3 %; Mean Corpuscular Hemoglobin 28.4 pg (27-33); Mean Corpuscular Volume 86.1 fL (80-97); Mean Platelet Volume 7.3 fL (7.5-11.2); Platelet Count 171 10^3/uL (150-450); Red Blood Count 4.18 10^6/uL (4.06-5.63); Red Cell Distribution Width 18.7 % (12-17); White Blood Count 14.8 10^3/uL (3.6-10.2)
[2024-01-17 08:10] LABS: Calcium 8.7 mg/dL (8.6-10.3); Creatinine, Serum 1.8 mg/dL (0.67-1.17); Potassium 4.4 mmol/L (3.5-5.0); eGFR CKD-EPI 37.3 (>60)
[2024-01-17] MEDS: DULoxetine DR 60 mg CAP PO SCH (09:21)
[2024-01-17] MEDS: ICOSAPENT ETHYL 1 GM CAPSULE (NF) PO SCH (10:16)
[2024-01-17] MEDS: cefTRIAXone 1 gm/50 mL D5W 1 GM/50 ML BAG IV SCH (15:01)
[2024-01-18 10:54] LABS: ABS Basophils 0.1 10^3/uL (0.0-0.1); ABS Eosinophils 0.2 10^3/uL (0.0-0.5); ABS Lymphocytes 0.3 10^3/uL (1.0-4.8); ABS Monocytes 1.1 10^3/uL (0.0-1.1); Eosinophil % 1.6 %; Hematocrit 37.2 % (38-53); Hemoglobin 12.2 g/dL (13.2-16.3); Lymphocyte % 2.9 %; Mean Corpuscular Hemoglobin 28.4 pg (27-33); Mean Corpuscular Hgb Conc 32.9 g/dL (31-36); Mean Corpuscular Volume 86.3 fL (80-97); Mean Platelet Volume 7.8 fL (7.5-11.2); Platelet Count 187 10^3/uL (150-450); Red Blood Count 4.31 10^6/uL (4.06-5.63); Red Cell Distribution Width 18.5 % (12-17); White Blood Count 11.7 10^3/uL (3.6-10.2)
[2024-01-18 11:17] LABS: Calcium 8.4 mg/dL (8.6-10.3); Creatinine, Serum 1.66 mg/dL (0.67-1.17); Potassium 4.5 mmol/L (3.5-5.0); eGFR CKD-EPI 41.2 (>60)
[2024-01-18] MEDS ORDERED: Senna TAB 8.6 mg TAB PO PRN (17:02)
[2024-01-18] MEDS ORDERED: Magnesium Hydroxide LIQ 30 ML UDC PO PRN (17:02)
[2024-01-19] MEDS: Sulfur Hexaflouride MICROSPHR 25 MG VIAL IV PRN (11:33)
[2024-01-19] MEDS ORDERED: Sulfur Hexaflouride MICROSPHR 25 MG VIAL ONE (11:49)
[2024-01-19] MEDS: Polyethylene Glycol 3350 17 GM PACKET PO PRN (18:35)
[2024-01-20 06:34] LABS: ABS Basophils 0.1 10^3/uL (0.0-0.1); ABS Eosinophils 0.3 10^3/uL (0.0-0.5); ABS Lymphocytes 0.5 10^3/uL (1.0-4.8); ABS Monocytes 0.9 10^3/uL (0.0-1.1); ABS Neutrophils 6.9 10^3/uL (1.5-7.6); Hematocrit 34.1 % (38-53); Hemoglobin 11.3 g/dL (13.2-16.3); Lymphocyte % 5.6 %; Mean Corpuscular Hemoglobin 28.7 pg (27-33); Mean Corpuscular Hgb Conc 33.2 g/dL (31-36); Mean Corpuscular Volume 86.6 fL (80-97); Mean Platelet Volume 7.5 fL (7.5-11.2); Platelet Count 191 10^3/uL (150-450); Red Blood Count 3.94 10^6/uL (4.06-5.63); Red Cell Distribution Width 18.1 % (12-17); White Blood Count 8.7 10^3/uL (3.6-10.2)
[2024-01-20 06:52] LABS: Calcium 8.3 mg/dL (8.6-10.3); Creatinine, Serum 1.62 mg/dL (0.67-1.17); Magnesium 1.8 mg/dL (1.9-2.7); Potassium 4.6 mmol/L (3.5-5.0); eGFR CKD-EPI 42.4 (>60)
[2024-01-20] MEDS: Magnesium Sulfate 2 gm BAG 2 GM/50 ML BAG IVPB ONE (08:26)
[2024-01-21] MEDS ORDERED: Senna TAB 8.6 mg TAB PO PRN (09:14)
[2024-01-21] MEDS: Furosemide 40 mg/4 ml IV VIAL IV ONE (11:35)
[2024-01-21] MEDS: Magnesium Hydroxide LIQ 30 ML UDC PO SCH (11:36)
[2024-01-22 05:35] LABS: ABS Basophils 0.1 10^3/uL (0.0-0.1); ABS Eosinophils 0.3 10^3/uL (0.0-0.5); ABS Lymphocytes 0.5 10^3/uL (1.0-4.8); ABS Monocytes 0.8 10^3/uL (0.0-1.1); ABS Neutrophils 7.2 10^3/uL (1.5-7.6); ABS Nucleated RBC 0.01 10^3/ul; Eosinophil % 3.4 %; Hematocrit 36.2 % (38-53); Hemoglobin 12.1 g/dL (13.2-16.3); Lymphocyte % 5.4 %; Mean Corpuscular Hemoglobin 28.8 pg (27-33); Mean Corpuscular Hgb Conc 33.4 g/dL (31-36); Mean Corpuscular Volume 86.1 fL (80-97); Nucleated Red Blood Cells % 0.1 %/100WBC (0.0-0.8); Platelet Count 248 10^3/uL (150-450); Red Blood Count 4.21 10^6/uL (4.06-5.63); Red Cell Distribution Width 18.2 % (12-17); White Blood Count 8.9 10^3/uL (3.6-10.2)
[2024-01-22 06:11] LABS: Anion Gap 6 mmol/L (2-16); Blood Urea Nitrogen 53 mg/dL (6-24); CO2 Carbon Dioxide 32 mmol/L (22-32); Calcium 8.5 mg/dL (8.6-10.3); Chloride 100 mmol/L (101-111); Creatinine, Serum 1.75 mg/dL (0.67-1.17); Glucose 127 mg/dL (70-100); Magnesium 2.1 mg/dL (1.9-2.7); Potassium 4.8 mmol/L (3.5-5.0); Sodium 138 mmol/L (135-145); eGFR CKD-EPI 38.6 (>60)
[2024-01-22] MEDS: Polyethylene Glycol 3350 17 GM PACKET PO PRN (08:00)
[2024-01-22 11:27] LABS: % Iron Saturation 10 % (15-55); .Transferrin 149 mg/dL (203-362); Iron < 20 ug/dL (50-212); Total Iron Binding Capacity 209 mcg/dL (250-450); Unsaturated Iron Binding 189 ug/dL
[2024-01-22 11:48] LABS: Ferritin 341.8 ng/mL (24-336)
[2024-01-22] MEDS: Iron Sucrose 200 MG in NS 0.9% 100 ml BAG 100 ML IVPB SCH (16:58)
[2024-01-23 10:10] VITALS: BP 124/74
== END 2024-01-23 12:25 | disposition home or self-care (01) | DRG 193 ==
LOC: EDHOLD 17:58 → ED 17:58 → SUATTDRO 23:30 → MED 01-17 02:25 → SUATTDRO 01-17 16:37
PROVIDERS: ADMIT Student in an Organized Health Care Education/Training Program; ATTEND Student in an Organized Health Care Education/Training Program

== ENCOUNTER 2024-03-31 01:39 | Observation (INO) ==
[2024-03-31 02:11] LABS: ABS Basophils 0.2 10^3/uL (0.0-0.1); ABS Eosinophils 0.2 10^3/uL (0.0-0.5); ABS Lymphocytes 0.6 10^3/uL (1.0-4.8); ABS Monocytes 1.3 10^3/uL (0.0-1.1); ABS Neutrophils 11.2 10^3/uL (1.5-7.6); ABS Nucleated RBC 0.01 10^3/ul; Eosinophil % 1.5 %; Hematocrit 32.9 % (38-53); Hemoglobin 10.8 g/dL (13.2-16.3); Lymphocyte % 4.5 %; Mean Corpuscular Hemoglobin 27.1 pg (27-33); Mean Corpuscular Hgb Conc 32.9 g/dL (31-36); Mean Corpuscular Volume 82.4 fL (80-97); Mean Platelet Volume 6.9 fL (7.5-11.2); Nucleated Red Blood Cells % 0.1 %/100WBC (0.0-0.8); Platelet Count 370 10^3/uL (150-450); Red Cell Distribution Width 18.4 % (12-17); White Blood Count 13.5 10^3/uL (3.6-10.2)
[2024-03-31 02:28] LABS: INR 1.29 (0.85-1.14)
[2024-03-31 02:50] LABS: Calcium 9.7 mg/dL (8.6-10.3); Creatinine, Serum 2.63 mg/dL (0.67-1.17); Globulin 2.9 g/dL (2-4); Potassium 4.9 mmol/L (3.5-5.0); Total Bilirubin 0.5 mg/dL (0.2-1.0); Total Protein 5.9 g/dL (6.4-8.9); eGFR CKD-EPI 23.7 (>60)
[2024-03-31] MEDS: NS 0.9% 500 ml BAG 500 ML IV ONE (03:49)
[2024-03-31 03:53] LABS: High Sensitivity Troponin 1 Hr 27 pg/mL (<20)
[2024-03-31 13:15] LABS: Immature Retic Fraction 0.56
[2024-03-31 13:32] LABS: C Reactive Protein 175.72 mg/L (<8.01)
[2024-03-31 14:20] LABS: Ferritin 772.1 ng/mL (24-336)
[2024-03-31 14:23] LABS: Folate > 20.00 ng/mL (5.90-24.80)
[2024-03-31 14:24] LABS: Vitamin B12 > 1450 pg/mL (180-914)
[2024-03-31 14:32] LABS: .Transferrin 129 mg/dL (203-362); Total Iron Binding Capacity 181 mcg/dL (250-450)
[2024-03-31] MEDS ORDERED: Albuterol HFA INHALER 8 gm MDI INH PRN (15:06)
[2024-03-31] MEDS ORDERED: Dextrose 50% Syringe 50 ml 25 GM/50 ML SYRINGE IV PUSH PRN (15:35)
[2024-03-31] MEDS: Lactated Ringers 1000 ml BAG 1,000 ML IV SCH (15:58)
[2024-03-31 17:23] LABS: Iron 24 ug/dL (50-212)
[2024-03-31 17:31] LABS: % Iron Saturation 13 % (15-55); .Transferrin 127 mg/dL (203-362); Total Iron Binding Capacity 178 mcg/dL (250-450); Unsaturated Iron Binding 154 ug/dL
[2024-03-31 18:18] LABS: Urine Appearance Clear; Urine Bilirubin Negative (Negative); Urine Blood Negative (Negative); Urine Color Yellow; Urine Glucose Negative (Negative); Urine Ketones Negative (Negative); Urine Nitrite Negative (Negative); Urine Protein Trace (Negative); Urine Specific Gravity 1.015 (1.002-1.030); Urine Urobilinogen Negative (Negative)
[2024-03-31 19:26] LABS: Corrected Retic Count 0.8 % (0.5-1.5); Hematocrit for Retic CNT 33.4 % (38-53); RBC Retic Count 3.96 10^6/ul (4.06-5.63)
[2024-03-31 20:01] LABS: Urine Bacteria 1+ /HPF (Absent); Urine Granular Casts Present /LPF (Absent); Urine Red Blood Cell 1+(3-5/hpf) /HPF (0-Trace); Urine White Blood Cell 1+(6-10/hpf) /HPF (0-Trace)
[2024-04-01 06:10] LABS: ABS Basophils 0.1 10^3/uL (0.0-0.1); ABS Eosinophils 0.3 10^3/uL (0.0-0.5); ABS Lymphocytes 0.5 10^3/uL (1.0-4.8); ABS Monocytes 0.9 10^3/uL (0.0-1.1); ABS Neutrophils 7.8 10^3/uL (1.5-7.6); Eosinophil % 2.9 %; Hematocrit 31.1 % (38-53); Hemoglobin 10.3 g/dL (13.2-16.3); Lymphocyte % 4.8 %; Mean Corpuscular Hemoglobin 27.3 pg (27-33); Mean Corpuscular Hgb Conc 33.1 g/dL (31-36); Mean Corpuscular Volume 82.6 fL (80-97); Mean Platelet Volume 7.2 fL (7.5-11.2); Platelet Count 317 10^3/uL (150-450); Red Blood Count 3.76 10^6/uL (4.06-5.63); Red Cell Distribution Width 18.6 % (12-17); White Blood Count 9.5 10^3/uL (3.6-10.2)
[2024-04-01 06:27] LABS: Calcium 8.9 mg/dL (8.6-10.3); Creatinine, Serum 1.86 mg/dL (0.67-1.17); Magnesium 1.7 mg/dL (1.9-2.7); Potassium 4.8 mmol/L (3.5-5.0); eGFR CKD-EPI 35.9 (>60)
[2024-04-01] MEDS: Magnesium Sulfate 2 gm BAG 2 GM/50 ML BAG IVPB ONE (08:01)
[2024-04-01] MEDS: cefTRIAXone 1 gm/50 mL D5W 1 GM/50 ML BAG IV SCH (10:58)
[2024-04-01] MEDS: FLUTICAS/UMECLI/VILANT 100-62.5-25 MDI (NF) INH SCH (11:02)
[2024-04-01] MEDS: DULoxetine DR 60 mg CAP PO SCH (11:10)
[2024-04-01] MEDS: cefTRIAXone 1 GM Q24H (ADVAN) IVPB SCH (11:10)
[2024-04-01 14:00] LABS: High Sensitivity Troponin 1 Hr 18 pg/mL (<20)
[2024-04-01] MEDS: Heparin 5000 UNITS/ML 1 mL VIAL SUBCUT SCH (22:01)
[2024-04-02 06:47] LABS: ABS Basophils 0.1 10^3/uL (0.0-0.1); ABS Eosinophils 0.2 10^3/uL (0.0-0.5); ABS Lymphocytes 0.4 10^3/uL (1.0-4.8); ABS Monocytes 0.9 10^3/uL (0.0-1.1); ABS Neutrophils 7.2 10^3/uL (1.5-7.6); ABS Nucleated RBC 0.01 10^3/ul; Eosinophil % 2.8 %; Hematocrit 29.8 % (38-53); Lymphocyte % 4.9 %; Mean Corpuscular Hemoglobin 27.8 pg (27-33); Mean Corpuscular Hgb Conc 33.4 g/dL (31-36); Mean Corpuscular Volume 83.2 fL (80-97); Mean Platelet Volume 7.1 fL (7.5-11.2); Nucleated Red Blood Cells % 0.1 %/100WBC (0.0-0.8); Platelet Count 315 10^3/uL (150-450); Red Blood Count 3.58 10^6/uL (4.06-5.63); Red Cell Distribution Width 18.8 % (12-17); White Blood Count 8.9 10^3/uL (3.6-10.2)
[2024-04-02 07:06] LABS: Calcium 8.8 mg/dL (8.6-10.3); Creatinine, Serum 1.56 mg/dL (0.67-1.17); Magnesium 1.8 mg/dL (1.9-2.7); Potassium 5.2 mmol/L (3.5-5.0); eGFR CKD-EPI 44.3 (>60)
[2024-04-02] MEDS: Sulfur Hexaflouride MICROSPHR 25 MG VIAL IV PRN (08:30)
[2024-04-02] MEDS: Magnesium Sulfate 2 gm BAG 2 GM/50 ML BAG IVPB ONE (09:33)
[2024-04-02 13:12] LABS: Urine Appearance Clear; Urine Bilirubin Negative (Negative); Urine Blood 2+ (Negative); Urine Color Light-Yellow; Urine Glucose Negative (Negative); Urine Ketones Negative (Negative); Urine Nitrite Negative (Negative); Urine Protein Negative (Negative); Urine Specific Gravity 1.014 (1.002-1.030); Urine Urobilinogen Negative (Negative); Urine pH 5.5 (5.0-8.0)
[2024-04-02 13:58] LABS: Urine Bacteria Absent /HPF (Absent); Urine Red Blood Cell 3+(>10/hpf) /HPF (0-Trace); Urine White Blood Cell 2+(11-20/hpf) /HPF (0-Trace)
[2024-04-03 06:37] LABS: ABS Basophils 0.1 10^3/uL (0.0-0.1); ABS Eosinophils 0.2 10^3/uL (0.0-0.5); ABS Lymphocytes 0.5 10^3/uL (1.0-4.8); ABS Monocytes 0.9 10^3/uL (0.0-1.1); ABS Neutrophils 8.5 10^3/uL (1.5-7.6); ABS Nucleated RBC 0.01 10^3/ul; Eosinophil % 2.2 %; Hematocrit 32.1 % (38-53); Hemoglobin 10.3 g/dL (13.2-16.3); Lymphocyte % 4.6 %; Mean Corpuscular Hemoglobin 27.4 pg (27-33); Mean Corpuscular Hgb Conc 32.2 g/dL (31-36); Mean Corpuscular Volume 85.2 fL (80-97); Mean Platelet Volume 7.1 fL (7.5-11.2); Platelet Count 290 10^3/uL (150-450); Red Blood Count 3.77 10^6/uL (4.06-5.63); Red Cell Distribution Width 18.6 % (12-17); White Blood Count 10.2 10^3/uL (3.6-10.2)
[2024-04-03 06:53] LABS: Calcium 9.2 mg/dL (8.6-10.3); Creatinine, Serum 1.3 mg/dL (0.67-1.17); Magnesium 1.8 mg/dL (1.9-2.7); Potassium 5.1 mmol/L (3.5-5.0); eGFR CKD-EPI 55.2 (>60)
[2024-04-03 09:39] VITALS: BP 150/81
[2024-04-03] MEDS: Magnesium Sulfate 2 gm BAG 2 GM/50 ML BAG IVPB ONE (09:40)
[2024-04-03] MEDS: SODIUM ZIRCONIUM CYCLOSILICATE 10 GM PACKET PO ONE (12:29)
[2024-04-03 13:12] LABS: Adenovirus F40/41 Negative (Negative); Astrovirus Negative (Negative); Cryptosporidium species Negative (Negative); Cyclospora cayetanensis Negative (Negative); Entamoeba histolytica Negative (Negative); Enteroaggregative E.coli(EAEC) Negative (Negative); Enteropathogenic Ecoli(EPEC) Negative (Negative); Enterotoxigenic Ecoli(ETEC) Negative (Negative); Norovirus GI/GII Negative (Negative); Plesiomonas shigelloides Negative (Negative); Salmonella species Negative (Negative); Sapovirus Negative (Negative); Shiga toxin producing E. coli Negative (Negative); Shigella/Enteroinvasive E.coli Negative (Negative); Specimen Source STOOL; Vibrio cholerae Negative (Negative); Yersinia species Negative (Negative)
[2024-04-04] MEDS ORDERED: cefTRIAXone 1 gm/50 mL D5W 1 GM/50 ML BAG IV SCH (11:00)
== END 2024-04-03 16:00 | disposition home or self-care (01) ==
LOC: ED 01:39 → EDHOLD 01:39 → SUATTDRO 11:33 → MED 12:19
PROVIDERS: ADMIT Internal Medicine; ATTEND Internal Medicine